=== PATIENT | female | born 1965 | race Caucasian/White ===

== ENCOUNTER 2021-09-21 15:20 | Inpatient (IN) | payer OTHER ==
[2021-09-21] MEDS ORDERED: DEXAMETHASONE SOD PHOSPHATE 10 MG/ML 1 ML VIAL IV STA (17:01)
[2021-09-21] MEDS ORDERED: ACETAMINOPHEN TAB 500 MG TAB PO STA (17:17)
--- NOTE | 2021-09-21 17:19 | ED ---
General Adult HPI - General Chief complaint: Upper Respiratory Infection Stated complaint: low o2/cough/fever Time Seen by Provider: 09/21/21 16:45 Source: patient Mode of arrival: ambulatory Limitations: no limitations - History of Present Illness Initial comments: Dictation was produced using [employer] dictation software. please excuse any grammatical, word or spelling errors. Chief Complaint: 86-year-old female presents to emergency Department for hypoxia. She was tested positive for coronavirus 5 days ago History of Present Illness: This 56-year-old female she is 5 days positive for coronavirus per she's been symptomatic for the last 7 days. She has had mild symptoms since the beginning however today she noticed that her symptoms are any worse. She started to feel mildly short of breath. She wears a [employer] Smart watch per she checked her oxygen was found to be very low measuring 60-70%. She called her primary care doctor and was told to come to the emergency department. Patient is placed on supplemental oxygen with improvement. Patient has no chest pain. She states she did get one of the vaccines back in November. She has had the second because she had a severe ALLERGIC reaction from the first injection. Patient still complains mild fevers. No abdominal pain. The ROS documented in this emergency department record has been reviewed and confirmed by me. Those systems with pertinent positive or negative responses have been documented in the HPI. All other systems are other negative and/or noncontributory. PHYSICAL EXAM: General Impression: Alert and oriented x3, not in acute distress HEENT: Normocephalic atraumatic, extra-ocular movements intact, pupils equal and reactive to light bilaterally, mucous membranes moist. Cardiovascular: Heart regular rate and rhythm Chest: Able to complete full sentences, no retractions, no tachypnea Abdomen: abdomen soft, non-tender, non-distended, no organomegaly Musculoskeletal: Pulses present and equal in all extremities, no peripheral edema Motor: no focal deficits noted Neurological: CN II-XII grossly intact, no focal motor or sensory deficits noted Skin: Intact with no visualized rashes Psych: Normal affect and mood ED course: 56-year-old female presents emergency department for hypoxia secondary to coronavirus. Vital signs upon arrival shows hypoxia measured at 83% on room air. Temperature is 100.4. Heart rate is 104. Laboratory evaluation obtained. CBC, coag panel, metabolic panel is all within acceptable limits. Patient does have elevated inflammatory markers. D-dimer 0.81. Chest x-ray shows patchy interstitial pneumonia. CTA shows bilateral pneumonia no PE. Patient be admitted for COVID-19 with hypoxic respiratory failure. Patient given Decadron placed on supplemental oxygen. She is satting well. Patient be admitted to Dr. Xiao. Infectious disease and pulmonology on consult. EKG interpretation: Ventricular rate 70, sinus tachycardia,. Interval 142, QRS 72, QTC 429. No VA prolongation, no QTC prolongation. T wave inversion in the 3 and aVF. Overall this EKG is nonspecific. - Related Data Home Medications Medication Instructions Recorded Confirmed No Known Home Medications 09/21/21 09/21/21 Allergies Allergy/AdvReac Type Severity Reaction Status Date / Time amoxicillin Allergy Rash/Hives Verified 09/21/21 17:08 cobalt Allergy Anaphylaxis Verified 09/21/21 17:08 ibuprofen [From Motrin] Allergy Rash/Hives Verified 09/21/21 17:08 Review of Systems ROS Statement: Those systems with pertinent positive or pertinent negative responses have been documented in the HPI. ROS Other: All systems not noted in ROS Statement are negative. Past Medical History Past Medical History: No Reported History History of Any Multi-Drug Resistant Organisms: None Reported Past Surgical History: No Surgical Hx Reported Past Psychological History: No Psychological Hx Reported Smoking Status: Never smoker Past Alcohol Use History: None Reported Past Drug Use History: None Reported General Exam Limitations: no limitations Course Vital Signs 09/21/21 09/21/21 09/21/21 16:39 16:54 18:22 Temperature 100.4 F H 100.5 F H Pulse Rate 104 H 103 H 102 H Respiratory 22 16 16 Rate Blood Pressure 114/64 125/75 O2 Sat by Pulse 83 L 94 L 90 L Oximetry Medical Decision Making - Lab Data Result diagrams: 09/21/21 17:15 09/21/21 17:15 Lab Results 09/21/21 09/21/21 09/21/21 Range/Units 17:15 17:15 17:15 WBC 6.4 (3.8-10.6) k/uL RBC 4.96 (3.80-5.40) m/uL Hgb 14.2 (11.4-16.0) gm/dL Hct 44.2 (34.0-46.0) % MCV 89.0 (80.0-100.0) fL MCH 28.6 (25.0-35.0) pg MCHC 32.2 (31.0-37.0) g/dL RDW 13.5 (11.5-15.5) % Plt Count 142 L (150-450) k/uL MPV 8.8 Neutrophils % 69 % Lymphocytes % 24 % Monocytes % 5 % Eosinophils % 0 % Basophils % 0 % Neutrophils # 4.4 (1.3-7.7) k/uL Lymphocytes # 1.5 (1.0-4.8) k/uL Monocytes # 0.3 (0-1.0) k/uL Eosinophils # 0.0 (0-0.7) k/uL Basophils # 0.0 (0-0.2) k/uL PT 9.8 (9.0-12.0) sec INR 0.9 (<1.2) APTT 25.1 (22.0-30.0) sec D-Dimer 0.81 H (<0.60) mg/L FEU Sodium 134 L (137-145) mmol/L Potassium 4.2 (3.5-5.1) mmol/L Chloride 96 L (98-107) mmol/L Carbon Dioxide 27 (22-30) mmol/L Anion Gap 11 mmol/L BUN 16 (7-17) mg/dL Creatinine 0.70 (0.52-1.04) mg/dL Est GFR (CKD-EPI)AfAm >90 (>60 ml/min/1.73 sqM) Est GFR (CKD-EPI)NonAf >90 (>60 ml/min/1.73 sqM) Glucose 107 H (74-99) mg/dL Plasma Lactic Acid Tong (0.7-2.0) mmol/L Calcium 8.5 (8.4-10.2) mg/dL Magnesium 2.5 H (1.6-2.3) mg/dL Total Bilirubin 0.6 (0.2-1.3) mg/dL AST 178 H (14-36) U/L ALT 53 H (4-34) U/L Alkaline Phosphatase 64 (38-126) U/L Lactate Dehydrogenase 3014 H (313-618) U/L C-Reactive Protein 16.8 H (<1.0) mg/dL Total Protein 7.0 (6.3-8.2) g/dL Albumin 3.8 (3.5-5.0) g/dL 09/21/21 Range/Units 17:15 WBC (3.8-10.6) k/uL RBC (3.80-5.40) m/uL Hgb (11.4-16.0) gm/dL Hct (34.0-46.0) % MCV (80.0-100.0) fL MCH (25.0-35.0) pg MCHC (31.0-37.0) g/dL RDW (11.5-15.5) % Plt Count (150-450) k/uL MPV Neutrophils % % Lymphocytes % % Monocytes % % Eosinophils % % Basophils % % Neutrophils # (1.3-7.7) k/uL Lymphocytes # (1.0-4.8) k/uL Monocytes # (0-1.0) k/uL Eosinophils # (0-0.7) k/uL Basophils # (0-0.2) k/uL PT (9.0-12.0) sec INR (<1.2) APTT (22.0-30.0) sec D-Dimer (<0.60) mg/L FEU Sodium (137-145) mmol/L Potassium (3.5-5.1) mmol/L Chloride (98-107) mmol/L Carbon Dioxide (22-30) mmol/L Anion Gap mmol/L BUN (7-17) mg/dL Creatinine (0.52-1.04) mg/dL Est GFR (CKD-EPI)AfAm (>60 ml/min/1.73 sqM) Est GFR (CKD-EPI)NonAf (>60 ml/min/1.73 sqM) Glucose (74-99) mg/dL Plasma Lactic Acid Tong 1.4 (0.7-2.0) mmol/L Calcium (8.4-10.2) mg/dL Magnesium (1.6-2.3) mg/dL Total Bilirubin (0.2-1.3) mg/dL AST (14-36) U/L ALT (4-34) U/L Alkaline Phosphatase (38-126) U/L Lactate Dehydrogenase (313-618) U/L C-Reactive Protein (<1.0) mg/dL Total Protein (6.3-8.2) g/dL Albumin (3.5-5.0) g/dL Critical Care Time Critical Care Time: Yes Total Critical Care Time: 33 Disposition Clinical Impression: Coronavirus infection Disposition: ADMITTED IP TO THIS [facility] Condition: Critical Referrals: Elpidio Coffey MD [Primary Care Provider] - 1-2 days
[2021-09-21 17:25] LABS: Basophils % (A) 0 %; Eosinophils % (A) 0 %; HCT 44.2 % (34.0-46.0); HGB 14.2 gm/dL (11.4-16.0); Lymphocytes # (A) 1.5 k/uL (1.0-4.8); Lymphocytes % (A) 24 %; MCH 28.6 pg (25.0-35.0); MCHC 32.2 g/dL (31.0-37.0); Mean Platelet Volume 8.8; Monocytes # (A) 0.3 k/uL (0-1.0); Monocytes % (A) 5 %; Neutrophils # (A) 4.4 k/uL (1.3-7.7); Neutrophils % (A) 69 %; Platelet Count 142 k/uL (150-450); RBC 4.96 m/uL (3.80-5.40); RDW 13.5 % (11.5-15.5); WBC 6.4 k/uL (3.8-10.6)
[2021-09-21 17:38] LABS: INR 0.9 (<1.2); Partial Thromboplastin Time 25.1 sec (22.0-30.0); Prothrombin Time 9.8 sec (9.0-12.0)
[2021-09-21 17:44] LABS: ALT 53 U/L (4-34); AST 178 U/L (14-36); African American GFR (CKD) >90 (>60 ml/min/1.73 sqM); Albumin 3.8 g/dL (3.5-5.0); Alkaline Phosphatase 64 U/L (38-126); Anion Gap 11 mmol/L; Blood Urea Nitrogen 16 mg/dL (7-17); Calcium 8.5 mg/dL (8.4-10.2); Carbon Dioxide 27 mmol/L (22-30); Chloride 96 mmol/L (98-107); Glucose 107 mg/dL (74-99); Magnesium 2.5 mg/dL (1.6-2.3); Non-African American GFR(CKD) >90 (>60 ml/min/1.73 sqM); Potassium 4.2 mmol/L (3.5-5.1); Sodium 134 mmol/L (137-145); Total Bilirubin 0.6 mg/dL (0.2-1.3)
[2021-09-21 17:55] LABS: C Reactive Protein 16.8 mg/dL (<1.0); LDH 3014 U/L (313-618)
--- NOTE | 2021-09-21 19:01 | XR ---
EXAMINATION TYPE: XR chest 1V portable DATE OF EXAM: 09/21/2021 COMPARISON: NONE HISTORY: Difficulty breathing TECHNIQUE: Gayatri view FINDINGS: There is coarse interstitial density in the mid and lower lung montilla. Heart size is normal . There is no heart failure. There are chest leads. There is no pleural effusion. IMPRESSION: There is some patchy interstitial mild pneumonia. No heart failure seen.
--- NOTE | 2021-09-21 19:16 | CT ---
EXAMINATION TYPE: CT angio chest DATE OF EXAM: 09/21/2021 COMPARISON: None HISTORY: Shortness of breath. CT DLP: 409.2 mGycm Automated exposure control for dose reduction was used. CONTRAST: Performed with IV Contrast, patient injected with 100 mL of Isovue 300. There are 3-D post processed images. There is extensive patchy interstitial and airspace infiltrates in both lungs. There is no mediastina l adenopathy. There are no hilar masses. Thoracic aorta is intact. There is no aneurysm or dissection . There is no evidence of filling defect in the pulmonary arteries. There is some degenerative spurring in the thoracic spine. There is no compression fracture. Sternum is intact. The ribs appear intact. IMPRESSION: No evidence of pulmonary embolism. Extensive bilateral pneumonia.
[2021-09-21] MEDS ORDERED: NALOXONE 0.4 MG/ML 1 ML VIAL IV PRN (19:18)
[2021-09-21] MEDS: ENOXAPARIN 40 MG/0.4 ML SYRINGE SQ SCH (19:47)
--- NOTE | 2021-09-21 20:47 | P.HPIM ---
History of Present Illness H&P Date: 09/21/21 Chief Complaint: Short of breath This is a 56-year-old patient who follows with Dr. Coffey. Normally in good health. Was on taking any medications. Patient received off for short of posterior on it this year. Few minutes up to that she had developed a rash on the chest. Blood pressure was a bit high. Some tingling in the lips. There was no lip swelling no tongue swelling no choking no shortness of breath. Given this reaction she did not take the second dose of COVID shock. Patient for about a week has been getting progressively more short of breath. Having diar zoey for last 3 days. Everything tastes salty. Having. Slight headache. Has a dry cough. Her pulse ox at room has been off and on 84%. Poor appetite. Has been getting dizzy. She talk to her family doctor on videophone. He asked her to come in to the hospital. Patient tested positive for COVID 5 days ago. Brother and rundown. She been having some fevers. Review of systems: GEN.: Decreased appetite, fever, tired EYES: None HEENT: Some headache NECK: None RESPIRATORY: As above CARDIOVASCULAR: None GASTROINTESTINAL: Diarrhea GENITOURINARY: None MUSCULOSKELETAL: None LYMPHATICS: None HEMATOLOGICAL: None PSYCHIATRY: None NEUROLOGICAL: None Past medical history: Unremarkable Social history: Does not smoke or drink alcohol. . 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 Family history: Reviewed, noncontributory to presentation Physical examination: VITAL SIGNS: 100.8, 104, 22, 140/64, 83% room air GENERAL: BMI 71.1, reclining in bed, awake, tired. EYES: Pupils equal. Conjunctiva normal. HEENT: External appearance of nose and ears normal, oral cavity grossly normal. NECK: JVD not raised; masses not palpable. HEART: First and second heart sounds are normal; no edema. LUNGS: Respiratory rate increased, decreased breath sounds bilateral coarse crackles. ABDOMEN: Soft, nontender, liver spleen not palpable, no masses palpable. PSYCH: Alert and oriented x3; mood and affect tiredl. NEUROLOGICAL: Cranial nerves grossly intact; no facial asymmetry, power and sensation grossly intact. LYMPHATICS: No lymph nodes palpable in the axilla and neck INVESTIGATIONS, reviewed in the clinical context: WBC 6.4 hemoglobin 14.2 platelets 142 d-dimer 0.81 potassium 4.2 BUN 16 creatinine 0.70 CRP 16.8 Chest x-ray film personally reviewed by me-bilateral infiltrates Assessment and plan: -Acute bilateral COVID 19 pneumonitis. Patient is receive her first dose of vaccine in November. Had ALLERGIC reaction and did not get the second short period patient's symptoms have been present for about a week. Hypoxic. Start patient on dexamethasone 6 mg. Patient's is within the window for getting Remdesivir. Pulmonary and ID been consulted. -Acute hypoxic respiratory failure from COVID 19 pneumonitis. Oxygen currently at 4 L. Incentive spirometry -Sepsis from COVID 19 pneumonitis IV fluids -Thrombocytopenia from COVID 19 Follow CBC Dexamethasone 6 mg daily. Vitamin C, vitamin D, zinc sulfate. Pulmonary and ID consulted. Patient should be a candidate for IV Remdesivir. 4 L of oxygen. Incentive spirometry. Activity as tolerated. Given the complexity and severity of patient's condition expect the patient to be in the hospital at least for 2 overnights Past Medical History Past Medical History: No Reported History History of Any Multi-Drug Resistant Organisms: None Reported Past Surgical History: No Surgical Hx Reported Past Psychological History: No Psychological Hx Reported Smoking Status: Never smoker Past Alcohol Use History: None Reported Past Drug Use History: None Reported Medications and Allergies Home Medications Medication Instructions Recorded Confirmed Type No Known Home Medications 09/21/21 09/21/21 History Allergies Allergy/AdvReac Type Severity Reaction Status Date / Time amoxicillin Allergy Rash/Hives Verified 09/21/21 17:08 cobalt Allergy Anaphylaxis Verified 09/21/21 17:08 ibuprofen [From Motrin] Allergy Rash/Hives Verified 09/21/21 17:08 Physical Exam Vitals: Vital Signs Temp Pulse Resp BP Pulse Ox 09/21/21 20:03 99 18 127/65 94 L 09/21/21 19:49 100.8 F H 09/21/21 18:22 100.5 F H 102 H 16 125/75 90 L 09/21/21 16:54 103 H 16 94 L 09/21/21 16:39 100.4 F H 104 H 22 114/64 83 L Intake and Output 09/21/21 09/21/21 09/21/21 06:59 14:59 22:59 Other: Weight 182 kg Results CBC & Chem 7: 09/21/21 17:15 09/21/21 17:15 Labs: Abnormal Lab Results - Last 24 Hours (Table) 09/21/21 09/21/21 09/21/21 Range/Units 17:15 17:15 17:15 Plt Count 142 L (150-450) k/uL D-Dimer 0.81 H (<0.60) mg/L FEU Sodium 134 L (137-145) mmol/L Chloride 96 L (98-107) mmol/L Glucose 107 H (74-99) mg/dL Magnesium 2.5 H (1.6-2.3) mg/dL AST 178 H (14-36) U/L ALT 53 H (4-34) U/L Lactate Dehydrogenase 3014 H (313-618) U/L C-Reactive Protein 16.8 H (<1.0) mg/dL
[2021-09-21] MEDS ORDERED: MAG HYDROX/AL HYDROX/SIMETH 30 ML CUP PO PRN (20:48)
[2021-09-21] MEDS ORDERED: MAGNESIUM HYDROXIDE 2,400 MG/10 ML CUP PO PRN (20:48)
[2021-09-21] MEDS ORDERED: LACTULOSE 20 GM/30 ML CUP PO PRN (20:48)
[2021-09-21] MEDS ORDERED: ONDANSETRON 4 MG/2 ML VIAL IVP PRN (20:48)
[2021-09-21] MEDS ORDERED: CALCIUM CARBONATE 500 MG CHEWABLE PO PRN (20:48)
[2021-09-21] MEDS ORDERED: ALPRAZolam 0.25 MG TAB PO PRN (20:48)
[2021-09-21] MEDS ORDERED: ACETAMINOPHEN TAB 325 MG TAB PO PRN (20:48)
[2021-09-21] MEDS: PSYLLIUM HUSK 100% 6 GM PACKET PO SCH (21:56)
[2021-09-21] MEDS: CHOLECALCIFEROL 25 MCG (1000 IU) TABLET PO SCH (21:59)
[2021-09-21] MEDS: ZINC SULFATE 220 MG CAP PO SCH (21:59)
[2021-09-21] MEDS: ASCORBIC ACID 500 MG TAB PO SCH (21:59)
[2021-09-21] MEDS: dexAMETHasone 2 MG TAB PO SCH (21:59)
[2021-09-21] MEDS: LACTATED RINGERS 1,000 ML IV SCH (22:00)
[2021-09-22] MEDS: LACTATED RINGERS 1,000 ML IV SCH ×4 (05:08→19:41)
[2021-09-22] MEDS: ASCORBIC ACID 500 MG TAB PO SCH ×2 (09:18→19:42)
[2021-09-22] MEDS: dexAMETHasone 2 MG TAB PO SCH (09:18)
[2021-09-22] MEDS: ENOXAPARIN 40 MG/0.4 ML SYRINGE SQ SCH (09:18)
[2021-09-22] MEDS: ZINC SULFATE 220 MG CAP PO SCH (09:18)
[2021-09-22] MEDS: CHOLECALCIFEROL 25 MCG (1000 IU) TABLET PO SCH (09:18)
[2021-09-22] MEDS: PSYLLIUM HUSK 100% 6 GM PACKET PO SCH (09:22)
[2021-09-22] MEDS ORDERED: REMDESIVIR 200 MG in SODIUM CHLORIDE 0.9% 250 ML IVPB ONE (12:00)
--- NOTE | 2021-09-22 13:45 | P.PN ---
Progress Note - Text Progress Note Date: 09/22/21 Chief Complaint: Short of breath This is a 56-year-old patient who follows with Dr. Coffey. Normally in good health. Was on taking any medications. Patient received off for short of posterior on it this year. Few minutes up to that she had developed a rash on the chest. Blood pressure was a bit high. Some tingling in the lips. There was no lip swelling no tongue swelling no choking no shortness of breath. Given this reaction she did not take the second dose of COVID shock. Patient for about a week has been getting progressively more short of breath. Having diarrhea for last 3 days. Everything tastes salty. Having. Slight headache. Has a dry cough. Her pulse ox at room has been off and on 84%. Poor appetite. Has been getting dizzy. She talk to her family doctor on videophone. He asked her to come in to the hospital. Patient tested positive for COVID 5 days ago. Tired and rundown. She been having some fevers. Admitted with COVID 19 pneumonitis, acute hypoxic respiratory failure. Started on dexamethasone, oxygen. IV fluids. 09/22/2021: Sitting up in a chair. Some shortness of breath. Did eat some. 91% on 3 L. Tired. Started on Remdesivir IV. Diarrhea present Review of systems: Was done for constitutional, cardiovascular, GI, pulmonary. relevant finding as above Active Medications Acetaminophen (Acetaminophen Tab 325 Mg Tab) 650 mg PO Q6HR PRN PRN Reason: Mild Pain or Fever > 100.5 Last Admin: 09/21/21 21:59 Dose: 650 mg Documented by: Al Hydroxide/Mg Hydroxide (Mag Hydrox/Al Hydrox/Simeth 30 Ml Cup) 15 ml PO Q6HR PRN PRN Reason: Indigestion Alprazolam (Alprazolam 0.25 Mg Tab) 0.25 mg PO Q6HR PRN PRN Reason: Anxiety Ascorbic Acid (Ascorbic Acid 500 Mg Tab) 500 mg PO BID [facility] Last Admin: 09/22/21 09:18 Dose: 500 mg Documented by: Calcium Carbonate/Glycine (Calcium Carbonate 500 Mg Chewable) 1,000 mg PO Q4HR PRN PRN Reason: Dyspepsia Cholecalciferol (Cholecalciferol 25 Mcg (1000 Iu) Tablet) 100 mcg PO DAILY [facility] Last Admin: 09/22/21 09:18 Dose: 100 mcg Documented by: Dexamethasone (Dexamethasone 2 Mg Tab) 6 mg PO DAILY [facility] Last Admin: 09/22/21 09:18 Dose: 6 mg Documented by: Enoxaparin Sodium (Enoxaparin 40 Mg/0.4 Ml Syringe) 40 mg SQ DAILY [facility] Last Admin: 09/22/21 09:18 Dose: 40 mg Documented by: Lactated Ringer's (Lactated Ringers) 1,000 mls @ 125 mls/hr IV .Q8H [facility] Last Admin: 09/22/21 05:08 Dose: Not Given Documented by: Remdesivir 100 mg/ Sodium (Chloride) 250 mls @ 250 mls/hr IVPB DAILY@1200 [facility] Stop: 09/26/21 12:59 Lactulose (Lactulose 20 Gm/30 Ml Cup) 20 gm PO DAILY PRN PRN Reason: Constipation Magnesium Hydroxide (Magnesium Hydroxide 2,400 Mg/10 Ml Cup) 2,400 mg PO DAILY PRN PRN Reason: Constipation Melatonin (Melatonin 3 Mg Tablet) 3 mg PO HS PRN PRN Reason: Insomnia Naloxone HCl (Naloxone 0.4 Mg/Ml 1 Ml Vial) 0.2 mg IV Q2M PRN PRN Reason: Opioid Reversal Ondansetron HCl (Ondansetron 4 Mg/2 Ml Vial) 4 mg IVP Q8HR PRN PRN Reason: Nausea And Vomiting Psyllium Hydrophilic Mucilloid (Psyllium Husk 100% 6 Gm Packet) 6 gm PO DAILY [facility] Last Admin: 09/22/21 09:22 Dose: Not Given Documented by: Zinc Sulfate (Zinc Sulfate 220 Mg Cap) 220 mg PO DAILY [facility] Last Admin: 09/22/21 09:18 Dose: 220 mg Documented by: Past medical history: Unremarkable Social history: Does not smoke or drink alcohol. . 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 Family history: Reviewed, noncontributory to presentation Physical examination: VITAL SIGNS: 98.1, 83%, 20, 131 and 82, 91% on 3 L GENERAL: BMI 71.1, reclining in bed, awake, tired. EYES: Pupils equal. Conjunctiva normal. HEENT: External appearance of nose and ears normal, oral cavity grossly normal. NECK: JVD not raised; masses not palpable. HEART: First and second heart sounds are normal; no edema. LUNGS: Respiratory rate increased, decreased breath sounds bilateral coarse crackles. ABDOMEN: Soft, nontender, liver spleen not palpable, no masses palpable. PSYCH: Alert and oriented x3; mood and affect tiredl. NEUROLOGICAL: Cranial nerves grossly intact; no facial asymmetry, power and sensation grossly intact. LYMPHATICS: No lymph nodes palpable in the axilla and neck INVESTIGATIONS, reviewed in the clinical context: WBC 6.4 hemoglobin 14.2 platelets 142 d-dimer 0.81 potassium 4.2 BUN 16 creatinine 0.70 CRP 16.8 Chest x-ray film personally reviewed by me-bilateral infiltrates Assessment and plan: -Acute bilateral COVID 19 pneumonitis. Received her first dose of vaccine in November. Had ALLERGIC reaction and did not get the second short period patient's symptoms have been present for about a week. Dexamethasone. IV Remdesivir-day 1. -Acute hypoxic respiratory failure from COVID 19 pneumonitis.: Slow to respond Oxygen currently at 3 L. Incentive spirometry -Sepsis from COVID 19 pneumonitis IV fluids -Thrombocytopenia from COVID 19 Follow CBC Dexamethasone 6 mg daily. IV Remdesivir. oxygen. Incentive spirometry. Follow with pulmonary in ID. Discussed with patient.
--- NOTE | 2021-09-22 14:33 | P.CNPUL ---
History of Present Illness Consult date: 09/22/21 Requesting physician: Kris Xiao Reason for consult: dyspnea, hypoxemia, abnormal CXR/CT Chief complaint: Cough, fever, hypoxia History of present illness: This is a 56-year-old female patient of Dr. Coffey with no significant medical history, who presented to the emergency department on 09/21/2021 for evaluation of worsening dyspnea, patient wears a apple Smart watch and when she checked her oxygen it was noted to be very low measuring 60-70%. She has been having a cough and a fever for about 1 week. She called her primary care doctor and was told to come into the emergency department. Patient denied any chest pain, patient was tested positive for COVID 19 5 days ago. No nausea or vomiting, no abdominal pain. Patient did have some diarrhea related to COVID-19 infection. Patient had her first COVID-19 injection back in November 2020 however she developed a reaction to it with development of a rash, lips tingling and hypertension and she did not receive her second COVID-19 injection. Chest x-ray in emergency department showed some patchy interstitial mild pneumonia. Admis francis showed white blood cell count of 6.4, hemoglobin 14.2, platelet count was 442, INR was 0.9, d-dimer 0.81, sodium was 134, potassium is 4.2, chloride was 96, CO2 is 27, BUN was 16, creatinine was 0.7, lactic acid was 1.4, ferritin level was 2674, AST was 178, ALT was 53, LDH was 3014, CRP was 16.8, pro calcitonin level was 0.17. CTA chest was obtained showing no evidence of pulmonary embolism, and extensive bilateral pneumonia. She was started on Decadron, prophylactic dose Lovenox 40 mg daily, and we were asked to see the patient in consultation COVID-19 pneumonia Review of Systems All systems: negative Constitutional: Denies chills, Denies fever Eyes: denies blurred vision, denies pain Ears, nose, mouth and throat: Denies headache, Denies sore throat Cardiovascular: Denies chest pain, Denies shortness of breath Respiratory: Reports dyspnea, Denies cough Gastrointestinal: Denies abdominal pain, Denies diarrhea, Denies nausea, Denies vomiting Genitourinary: Denies dysuria, Denies hematuria Musculoskeletal: Denies myalgias Integumentary: Denies pruritus, Denies rash Neurological: Denies numbness, Denies weakness Psychiatric: Denies anxiety, Denies depression Endocrine: Denies fatigue, Denies weight change Past Medical History Past Medical History: No Reported History History of Any Multi-Drug Resistant Organisms: None Reported Past Surgical History: No Surgical Hx Reported Past Anesthesia/Blood Transfusion Reactions: No Reported Reaction Past Psychological History: No Psychological Hx Reported Smoking Status: Never smoker Past Alcohol Use History: None Reported Past Drug Use History: None Reported - Past Family History Father Family Medical History: Cancer Additional Family Medical History / Comment(s): lung cancer Mother Family Medical History: Congestive Heart Failure (CHF) Medications and Allergies Home Medications Medication Instructions Recorded Confirmed Type No Known Home Medications 09/21/21 09/21/21 History Allergies Allergy/AdvReac Type Severity Reaction Status Date / Time amoxicillin Allergy Rash/Hives Verified 09/21/21 17:08 cobalt Allergy Anaphylaxis Verified 09/21/21 17:08 ibuprofen [From Motrin] Allergy Rash/Hives Verified 09/21/21 17:08 Physical Exam Vitals: Vital Signs Temp Pulse Pulse Resp BP BP Pulse Ox 09/22/21 10:01 98.1 F 83 20 131/82 91 L 09/22/21 08:10 17 09/22/21 05:44 97.4 F L 79 17 141/81 94 L 09/22/21 02:41 97.8 F 76 17 118/74 95 09/22/21 00:00 87 18 09/21/21 23:45 97.2 F L 87 18 133/85 92 L 09/21/21 22:05 98.6 F 09/21/21 20:03 99 18 127/65 94 L 09/21/21 19:49 100.8 F H 09/21/21 18:22 100.5 F H 102 H 16 125/75 90 L 09/21/21 16:54 103 H 16 94 L 09/21/21 16:39 100.4 F H 104 H 22 114/64 83 L Intake and Output 09/21/21 09/22/21 09/22/21 22:59 06:59 14:59 Other: # Voids 1 Weight 182 kg 82.5 kg GENERAL EXAM: Alert, very pleasant, 56-year-old white female, currently on 3 L of oxygen and pulse ox of 91% comfortable in no apparent distress. HEAD: Normocephalic/atraumatic. EYES: Normal reaction of pupils, equal size. Conjunctiva pink, sclera white. NOSE: Clear with pink turbinates. THROAT: No erythema or exudates. NECK: No masses, no JVD, no thyroid enlargement, no adenopathy. CHEST: No chest wall deformity. Symmetrical expansion. LUNGS: Equal air entry with mild crackles at the bases CVS: Regular rate and rhythm, normal S1 and S2, no gallops, no murmurs, no rubs ABDOMEN: Soft, nontender. No hepatosplenomegaly, normal bowel sounds, no guarding or rigidity. EXTREMITIES: No clubbing, no edema, no cyanosis, 2+ pulses and upper and lower extremities. MUSCULOSKELETAL: Muscle strength and tone normal. SPINE: No scoliosis or deformity SKIN: No rashes CENTRAL NERVOUS SYSTEM: Alert and oriented -3. No focal deficits, tone is nor mal in all 4 extremities. PSYCHIATRIC: Alert and oriented -3. Appropriate affect. Intact judgment and insight. Results - Laboratory Findings CBC and BMP: 09/21/21 17:15 09/21/21 17:15 PT/INR, D-dimer PT 9.8 sec (9.0-12.0) 09/21/21 17:15 INR 0.9 (<1.2) 09/21/21 17:15 D-Dimer 0.52 mg/L FEU (<0.60) 09/22/21 05:49 Abnormal lab findings: Abnormal Labs 09/21/21 09/21/21 09/21/21 17:15 17:15 17:15 Plt Count 142 L D-Dimer 0.81 H Sodium 134 L Chloride 96 L Glucose 107 H Magnesium 2.5 H Ferritin 2674.0 H AST 178 H ALT 53 H Lactate Dehydrogenase 3014 H C-Reactive Protein 16.8 H Procalcitonin 09/21/21 09/22/21 17:15 05:49 Plt Count D-Dimer Sodium Chloride Glucose Magnesium Ferritin AST ALT Lactate Dehydrogenase C-Reactive Protein 14.1 H Procalcitonin 0.17 H - Diagnostic Findings Chest x-ray: report reviewed, image reviewed CT scan - chest: report reviewed, image reviewed Assessment and Plan Plan: Assessment: #1. Acute hypoxic respiratory failure related to acute COVID-19 pneumonia, with onset of symptoms within 1 week of presentation to the emergency department. She is a good candidate for Remdesivir, she will be started on it on 09/22/2021 #2. Incomplete COVID-19 vaccination, patient received 1 dose of COVID-19 vaccine in November 2020, developed a reaction with skin rash, hypertension, and tingling lips, and did not complete her second injection #3. Elevated inflammatory markers related to acute viral pneumonia #4. Elevated d-dimer without evidence of pulmonary embolism on CT angiogram Plan: Continue Decadron Continue prophylactic Lovenox Continue multivitamins Continue IV hydration We'll continue to follow patient's clinical course and make further recommendations I performed a history & physical examination of the patient and discussed their management with my nurse practitioner, Babs Mckee. I reviewed the nurse practitioner's note and agree with the documented findings and plan of care. Lung sounds are positive for diminished breath sounds throughout the lung f ields. The findings and the impression was discussed with the patient. I attest to the documentation by the nurse practitioner. Time with Patient: Greater than 30
[2021-09-22] MEDS: MELATONIN 3 MG TABLET PO PRN (22:17)
--- NOTE | 2021-09-22 23:11 | P.CONS ---
History of Present Illness - Reason for Consult Consult date: 09/22/21 Covid 19 pneumonia Requesting physician: Kris Xiao - Chief Complaint shortness of breath and low pulse ox x few days - History of Present Illness History of present illness : Patient is 56-year-old female who did received 1 dose of COVID-19 back in November 2020 patient mention she did have allergic reaction and could not receive the second dose patient presented to the [facility] ER yesterday afternoon for evaluation of increasing shortness of breath and hypoxemia in this patient symptom has going on for about a week before presentation to the hospital patient did have a low pulse ox on her smart watch 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% patient did call her primary care physician who advised the patient to go to the hospital patient has been complaining of fever and chills she is has increasing shortness of the minimal exertion the patient also have a cough which is moderate intensity with occasional sputum production no hemoptysis some nausea decreased oral treatment no vomiting no abdominal pain did have some diarrhea on presentation to the hospital but did have a fever of 100.4 F patient was hypoxic with O2 sats of 83% on room air patient did have a normal white count no lymphopenia D-dimer was mildly elevated creatinine was normal ferritin was elevated liver enzymes mildly elevated glucose was 0.17 patient did have a chest x-ray patchy interstitial have mild pneumonia CT angiogram of the chest no evidence of PE extensive bilateral pneumonia patient was admitted to the hospital infectious disease was consulted for further management Review of system: CONSTITUTIONAL: Positive for weakness along with the fever. EYES: No complaint. ENT: No complaint. RESPIRATORY: As per history of present illness. CARDIOVASCULAR: No complaint. GENITOURINARY: No complaint. GASTROINTESTINAL: As per history of present illness. MUSCULOSKELETAL: No complaint. INTEGUMENTARY: No complaint. PSYCHOLOGIC: No complaint. ENDOCRINE: No complaint. NEUROLOGIC: No complaint. Past medical history : Reviewed, documented below Past surgical history : Reviewed, documented below Social history: Reviewed, documented below Medications: Reviewed, as documented below EXAMINATION: Vital sigans= Reviewed and documented below GENERAL DESCRIPTION: Middle-aged female up in the chair, no distress. No tachypnea or accessory muscle of respiration use. HEENT: Shows Pallor , no scleral icterus. Oral mucous membrane is dry. NECK: Trachea central, no thyromegaly. LUNGS: Unlabored breathing. Coarse breath sounds at bases. No wheeze or crackle. HEART: S1, S2, regular rate and rhythm. ABDOMEN: Soft, no tenderness , guarding or rigidity EXTREMITIES: No edema of feet. SKIN: No rash, no masses palpable. NEUROLOGICAL: The patient is awake, alert, oriented x3, mood and affect normal. LABS AND RADIOLOGY: Reviewed results see below Assessment : Patient presented to hospital with increasing shortness of breath hypoxemia in this patient did have a fever with evidence of extensive infiltration pneumonia on the basis of COVID-19 and the patient symptom has been going on for about 7 days and will qualify for remdesivir per [facility] policy no clinical evidence of secondary bacterial pneumonia Plan: 1-remdesivir 5-day course as per discussion with the pulmonary 2-dexamethasone Lovenox zinc and ascorbic acid 3-droplet isolation and respiratory support We will follow on clinical condition and cultures to further adjust medication if needed Thank you for this consultation we will follow the patient along with you Past Medical History Past Medical History: No Reported History History of Any Multi-Drug Resistant Organisms: None Reported Past Surgical History: No Surgical Hx Reported Past Anesthesia/Blood Transfusion Reactions: No Reported Reaction Past Psychological History: No Psychological Hx Reported Smoking Status: Never smoker Past Alcohol Use History: None Reported Past Drug Use History: None Reported - Past Family History Father Family Medical History: Cancer Additional Family Medical History / Comment(s): lung cancer Mother Family Medical History: Congestive Heart Failure (CHF) Medications and Allergies Home Medications Medication Instructions Recorded Confirmed Type No Known Home Medications 09/21/21 09/21/21 History Allergies Allergy/AdvReac Type Severity Reaction Status Date / Time amoxicillin Allergy Rash/Hives Verified 09/21/21 17:08 cobalt Allergy Anaphylaxis Verified 09/21/21 17:08 ibuprofen [From Motrin] Allergy Rash/Hives Verified 09/21/21 17:08 Physical Exam Vitals: Vital Signs Temp Pulse Pulse Resp BP BP Pulse Ox 09/22/21 16:14 18 92 L 09/22/21 14:00 98.4 F 91 20 120/78 91 L 09/22/21 10:01 98.1 F 83 20 131/82 91 L 09/22/21 08:10 17 09/22/21 05:44 97.4 F L 79 17 141/81 94 L 09/22/21 02:41 97.8 F 76 17 118/74 95 09/22/21 00:00 87 18 09/21/21 23:45 97.2 F L 87 18 133/85 92 L 09/21/21 22:05 98.6 F 09/21/21 20:03 99 18 127/65 94 L 09/21/21 19:49 100.8 F H 09/21/21 18:22 100.5 F H 102 H 16 125/75 90 L Intake and Output 09/22/21 09/22/21 09/22/21 06:59 14:59 22:59 Intake Total 1650 Balance 1650 Intake: Intake, IV Titration 1650 Amount Lactated Ringers 1,000 ml 1250 @ 125 mls/hr IV .Q8H [facility] Rx#:[id number] Lactated Ringers 1,000 ml 150 @ 75 mls/hr IV .[id number] [facility] Rx#:[id number] Remdesivir 200 mg In 250 Sodium Chloride 0.9% 250 ml @ 250 mls/hr IVPB ONCE ONE Rx#:[id number] Other: # Voids 1 4 Weight 82.5 kg Results CBC & Chem 7: 09/21/21 17:15 09/21/21 17:15 Labs: Abnormal Lab Results - Last 24 Hours (Table) 09/21/21 09/21/21 09/21/21 Range/Units 17:15 17:15 17:15 Plt Count 142 L (150-450) k/uL D-Dimer 0.81 H (<0.60) mg/L FEU Sodium 134 L (137-145) mmol/L Chloride 96 L (98-107) mmol/L Glucose 107 H (74-99) mg/dL Magnesium 2.5 H (1.6-2.3) mg/dL Ferritin 2674.0 H (10.0-291.0) ng/mL AST 178 H (14-36) U/L ALT 53 H (4-34) U/L Lactate Dehydrogenase 3014 H (313-618) U/L C-Reactive Protein 16.8 H (<1.0) mg/dL Procalcitonin (0.02-0.09) ng/mL 09/21/21 09/22/21 Range/Units 17:15 05:49 Plt Count (150-450) k/uL D-Dimer (<0.60) mg/L FEU Sodium (137-145) mmol/L Chloride (98-107) mmol/L Glucose (74-99) mg/dL Magnesium (1.6-2.3) mg/dL Ferritin (10.0-291.0) ng/mL AST (14-36) U/L ALT (4-34) U/L Lactate Dehydrogenase (313-618) U/L C-Reactive Protein 14.1 H (<1.0) mg/dL Procalcitonin 0.17 H (0.02-0.09) ng/mL
[2021-09-23 07:24] LABS: Basophils % (A) 0 %; Eosinophils % (A) 0 %; HGB 13.1 gm/dL (11.4-16.0); Lymphocytes # (A) 1.7 k/uL (1.0-4.8); Lymphocytes % (A) 15 %; MCH 29.6 pg (25.0-35.0); MCHC 33.5 g/dL (31.0-37.0); MCV 88.2 fL (80.0-100.0); Mean Platelet Volume 8.9; Monocytes # (A) 0.6 k/uL (0-1.0); Monocytes % (A) 6 %; Neutrophils # (A) 8.8 k/uL (1.3-7.7); Neutrophils % (A) 78 %; Platelet Count 210 k/uL (150-450); RBC 4.43 m/uL (3.80-5.40); RDW 13.7 % (11.5-15.5); WBC 11.3 k/uL (3.8-10.6)
[2021-09-23] MEDS: ENOXAPARIN 40 MG/0.4 ML SYRINGE SQ SCH (09:10)
[2021-09-23] MEDS: CHOLECALCIFEROL 25 MCG (1000 IU) TABLET PO SCH (09:10)
[2021-09-23] MEDS: dexAMETHasone 2 MG TAB PO SCH (09:11)
[2021-09-23] MEDS: ZINC SULFATE 220 MG CAP PO SCH (09:11)
[2021-09-23] MEDS: ASCORBIC ACID 500 MG TAB PO SCH ×2 (09:11→20:37)
[2021-09-23] MEDS: PSYLLIUM HUSK 100% 6 GM PACKET PO SCH (09:14)
--- NOTE | 2021-09-23 12:11 | P.PN ---
Subjective Progress Note Date: 09/23/21 Principal diagnosis: COVID-19 pneumonia This is a 56-year-old female patient of Dr. Coffey with no significant medical history, who presented to the emergency department on 09/21/2021 for evaluation of worsening dyspnea, patient wears a apple Smart watch and when she checked her oxygen it was noted to be very low measuring 60-70%. She has been having a cough and a fever for about 1 week. She called her primary care doctor and was told to come into the emergency department. Patient denied any chest pain, patient was tested positive for COVID 19 5 days ago. No nausea or vomiting, no abdominal pain. Patient did have some diarrhea related to COVID-19 infection. Patient had her first COVID-19 injection back in November 2020 however she developed a reaction to it with development of a rash, lips tingling and hypertension and she did not receive her second COVID-19 injection. Chest x-ray in emergency department showed some patchy interstitial mild pneumonia. Admissi on showed white blood cell count of 6.4, hemoglobin 14.2, platelet count was 442, INR was 0.9, d-dimer 0.81, sodium was 134, potassium is 4.2, chloride was 96, CO2 is 27, BUN was 16, creatinine was 0.7, lactic acid was 1.4, ferritin level was 2674, AST was 178, ALT was 53, LDH was 3014, CRP was 16.8, pro calcitonin level was 0.17. CTA chest was obtained showing no evidence of pulmonary embolism, and extensive bilateral pneumonia. She was started on Decadron, prophylactic dose Lovenox 40 mg daily, and we were asked to see the patient in consultation COVID-19 pneumonia The patient is seen today 09/23/2021 in follow-up on the regular medical floor. She is currently sitting up at the bedside. Awake and alert in no acute distress. Doing about the same today as compared to yesterday. Routine O2 saturations at 90% on 6 L high flow nasal cannula. Afebrile. Hemodynamically stable. White count 11.3. Hemoglobin 13.1. D-dimer 0.52. C-reactive protein 5.0. Day #2 of Remdesivir. She is continued on Decadron 6 mg daily. Lovenox 40 mg daily. Vitamin supplements. Objective - Vital Signs Vital signs: Vital Signs Temp 97.8 F 09/23/21 09:46 Pulse 83 09/23/21 09:46 Resp 18 09/23/21 09:46 BP 131/81 09/23/21 09:46 Pulse Ox 90 L 09/23/21 09:46 Intake & Output 09/22/21 09/23/21 09/23/21 18:59 06:59 18:59 Intake Total 1650 Balance 1650 Intake: Intake, IV Titration 1650 Amount Lactated Ringers 1,000 ml 1250 @ 125 mls/hr IV .Q8H [facility] Rx#:[id number] Lactated Ringers 1,000 ml 150 @ 75 mls/hr IV .[id number] [facility] Rx#:[id number] Remdesivir 200 mg In 250 Sodium Chloride 0.9% 250 ml @ 250 mls/hr IVPB ONCE ONE Rx#:[id number] Other: # Voids 4 2 - Exam GENERAL EXAM: Alert, pleasant 56-year-old female patient, on 6 L high flow nasal cannula, comfortable in no apparent distress. HEAD: Normocephalic. EYES: Normal reaction of pupils, equal size. NOSE: Clear with pink turbinates. THROAT: No erythema or exudates. NECK: No masses, no JVD. CHEST: No chest wall deformity. LUNGS: Equal air entry with crackles in bilateral bases. CVS: S1 and S2 normal with no audible murmur, regular rhythm. ABDOMEN: No hepatosplenomegaly, normal bowel sounds, no guarding or rigidity. SPINE: No scoliosis or deformity SKIN: No rashes CENTRAL NERVOUS SYSTEM: No focal deficits, tone is normal in all 4 extremities. EXTREMITIES: There is no peripheral edema. No clubbing, no cyanosis. Peripheral pulses are intact. - Labs CBC & Chem 7: 09/23/21 06:36 09/21/21 17:15 Labs: Abnormal Lab Results - Last 24 Hours (Table) 09/22/21 09/23/21 09/23/21 Range/Units 17:30 06:36 06:36 WBC 11.3 H (3.8-10.6) k/uL Neutrophils # 8.8 H (1.3-7.7) k/uL C-Reactive Protein 5.0 H (<1.0) mg/dL Coronavirus (PCR) Detected A (Not Detectd) Microbiology - Last 24 Hours (Table) 09/21/21 17:34 Blood Culture - Preliminary Blood No Growth after 24 hours 09/21/21 17:15 Blood Culture - Preliminary Blood No Growth after 24 hours Assessment and Plan Assessment: 1 Acute hypoxic respiratory failure related to acute COVID-19 pneumonia, with onset of symptoms within 1 week of presentation to the emergency department. Remdesivir started on 09/22/2021 2 Incomplete COVID-19 vaccination, patient received 1 dose of COVID-19 vaccine in November 2020, developed a reaction with skin rash, hypertension, and tingling lips, and did not complete her second injection 3 Elevated inflammatory markers related to acute viral pneumonia 4 Elevated d-dimer without evidence of pulmonary embolism on CT angiogram Plan: The patient was seen and evaluated by Dr. Khanna Currently stable and on 6 L nasal cannula Continue the current treatment plan Day #2 Remdesivir Continue Lovenox, Decadron, vitamin supplements Titrate the FiO2 as tolerated Chest x-ray and labs in a.m. We will continue to follow I, the cosigning physician, performed a history & physical examination of the patient. Lungs sounds coarse crackles in the bilateral bases. Maintaining good O2 saturations in the 90s on 6 liters high flow nasal cannula. I discussed the assessment and plan of care with my nurse practitioner, Pat Wong. I attest to the above note as dictated by her.
[2021-09-23] MEDS: REMDESIVIR 100 MG in SODIUM CHLORIDE 0.9% 250 ML IVPB SCH (12:23)
[2021-09-23] MEDS: LACTATED RINGERS 1,000 ML IV SCH (16:23)
--- NOTE | 2021-09-23 17:05 | PN ---
PROGRESS NOTE DATE OF SERVICE: 09/23/2021 REASON FOR FOLLOWUP: Acute COVID-19 pneumonia. INTERVAL HISTORY: The patient is afebrile. The patient is currently breathing comfortably compared to yesterday. Denies having any chest pain. Occasional cough. No vomiting. No abdominal pain and no diarrhea. PHYSICAL EXAMINATION: Blood pressure 132/79, pulse of 91, temperature 98.4. She is 90% on 6 L nasal cannula. General description is a middle-aged female up in the bed in no distress. RESPIRATORY SYSTEM: Unlabored breathing. Decreased intensity of breath sounds. No wheeze. HEART: S1, S2. Regular rate and rhythm. ABDOMEN: Soft. No tenderness. EXTREMITIES: No edema of the feet. LABS: Hemoglobin is 13.8, white count 11.3, temperature 97.5. DIAGNOSTIC IMPRESSION AND PLAN: Patient with acute COVID-19 pneumonia in this patient who seems to have shown clinical response to the current treatment protocol of remdesivir, dexamethasone, Lovenox, zinc and ascorbic acid; to continue along with respiratory support, and monitor clinical course closely. MMODL / IJN: [id number] /
[2021-09-23] MEDS ORDERED: FUROSEMIDE 10 MG/ML 2 ML VIAL IV STA (18:09)
--- NOTE | 2021-09-23 18:10 | P.PN ---
Progress Note - Text Progress Note Date: 09/23/21 Chief Complaint: Short of breath This is a 56-year-old patient who follows with Dr. Coffey. Normally in good health. Was on taking any medications. Patient received off for short of posterior on it this year. Few minutes up to that she had developed a rash on the chest. Blood pressure was a bit high. Some tingling in the lips. There was no lip swelling no tongue swelling no choking no shortness of breath. Given this reaction she did not take the second dose of COVID shock. Patient for about a week has been getting progressively more short of breath. Having diarrhea for last 3 days. Everything tastes salty. Having. Slight headache. Has a dry cough. Her pulse ox at room has been off and on 84%. Poor appetite. Has been getting dizzy. She talk to her family doctor on videophone. He asked her to come in to the hospital. Patient tested positive for COVID 5 days ago. Tired and rundown. She been having some fevers. Admitted with COVID 19 pneumonitis, acute hypoxic respiratory failure. Started on dexamethasone, oxygen. IV fluids. 09/22/2021: Sitting up in a chair. Some shortness of breath. Did eat some. 91% on 3 L. Tired. Started on Remdesivir IV. Diarrhea present 09/23/2021: Up in a chair. Short of breath. FiO2 increased to 6 L. Tired. Diarrhea better. Eating about 50%. Review of systems: Was done for constitutional, cardiovascular, GI, pulmonary. relevant finding as above Active Medications Acetaminophen (Acetaminophen Tab 325 Mg Tab) 650 mg PO Q6HR PRN PRN Reason: Mild Pain or Fever > 100.5 Last Admin: 09/21/21 21:59 Dose: 650 mg Documented by: Al Hydroxide/Mg Hydroxide (Mag Hydrox/Al Hydrox/Simeth 30 Ml Cup) 15 ml PO Q6HR PRN PRN Reason: Indigestion Alprazolam (Alprazolam 0.25 Mg Tab) 0.25 mg PO Q6HR PRN PRN Reason: Anxiety Ascorbic Acid (Ascorbic Acid 500 Mg Tab) 500 mg PO BID CAIO Last Admin: 09/23/21 09:11 Dose: 500 mg Documented by: Calcium Carbonate/Glycine (Calcium Carbonate 500 Mg Chewable) 1,000 mg PO Q4HR PRN PRN Reason: Dyspepsia Cholecalciferol (Cholecalciferol 25 Mcg (1000 Iu) Tablet) 100 mcg PO DAILY [facility] Last Admin: 09/23/21 09:10 Dose: 100 mcg Documented by: Dexamethasone (Dexamethasone 2 Mg Tab) 6 mg PO DAILY [facility] Last Admin: 09/23/21 09:11 Dose: 6 mg Documented by: Enoxaparin Sodium (Enoxaparin 40 Mg/0.4 Ml Syringe) 40 mg SQ DAILY [facility] Last Admin: 09/23/21 09:10 Dose: 40 mg Documented by: Remdesivir 100 mg/ Sodium (Chloride) 250 mls @ 250 mls/hr IVPB DAILY@1200 [facility] Stop: 09/26/21 12:59 Last Admin: 09/23/21 12:23 Dose: 250 mls/hr Documented by: Lactated Ringer's (Lactated Ringers) 1,000 mls @ 75 mls/hr IV .[id number] [facility] Last Admin: 09/23/21 16:23 Dose: Not Given Documented by: Lactulose (Lactulose 20 Gm/30 Ml Cup) 20 gm PO DAILY PRN PRN Reason: Constipation Magnesium Hydroxide (Magnesium Hydroxide 2,400 Mg/10 Ml Cup) 2,400 mg PO DAILY PRN PRN Reason: Constipation Melatonin (Melatonin 3 Mg Tablet) 3 mg PO HS PRN PRN Reason: Insomnia Last Admin: 09/22/21 22:17 Dose: 3 mg Documented by: Naloxone HCl (Naloxone 0.4 Mg/Ml 1 Ml Vial) 0.2 mg IV Q2M PRN PRN Reason: Opioid Reversal Ondansetron HCl (Ondansetron 4 Mg/2 Ml Vial) 4 mg IVP Q8HR PRN PRN Reason: Nausea And Vomiting Psyllium Hydrophilic Mucilloid (Psyllium Husk 100% 6 Gm Packet) 6 gm PO DAILY [facility] Last Admin: 09/23/21 09:14 Dose: Not Given Documented by: Zinc Sulfate (Zinc Sulfate 220 Mg Cap) 220 mg PO DAILY [facility] Last Admin: 09/23/21 09:11 Dose: 220 mg Documented by: Past medical history: Unremarkable Social history: Does not smoke or drink alcohol. . 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 Family history: Reviewed, noncontributory to presentation Physical examination: VITAL SIGNS: 98.4, 91, 18, 132/79, 90% on 6 L GENERAL: Sitting up in a chair, tired, short of breath LUNGS: Respiratory rate increased, . PSYCH: Alert and oriented x3; mood and affect tiredl. NEUROLOGICAL: Cranial nerves grossly intact; no facial asymmetry, Rest of the exam per pulmonary, nursing INVESTIGATIONS, reviewed in the clinical context: September 23: White count 11.3 hemoglobin 13.1 and platelets 210 d-dimer 0.5 to CRP 5.0 WBC 6.4 hemoglobin 14.2 platelets 142 d-dimer 0.81 potassium 4.2 BUN 16 creatinine 0.70 CRP 16.8 Chest x-ray film personally reviewed by me-bilateral infiltrates Assessment and plan: -Acute bilateral COVID 19 pneumonitis. Received her first dose of vaccine in November. Had ALLERGIC reaction and did not get the second short period patient's symptoms have been present for about a week: Worsening. Dexamethasone. IV Remdesivir-day 2. -Acute hypoxic respiratory failure from COVID 19 pneumonitis.: Worsening Oxygen currently at6 L. Incentive spirometry -Sepsis from COVID 19 pneumonitis IV fluids -Thrombocytopenia from COVID 19: Better Follow CBC -Acute medical debility from COVID 19. Dexamethasone 6 mg daily. IV Remdesivir. 6 L oxygen. Incentive spirometry. Discussed with the patient.
[2021-09-23] MEDS: MELATONIN 3 MG TABLET PO PRN (20:41)
--- NOTE | 2021-09-24 08:06 | XR ---
EXAMINATION TYPE: XR chest 1V portable DATE OF EXAM: 09/24/2021 COMPARISON: Chest x-ray and chest CT 09/21/2021 HISTORY: Covid pneumonia TECHNIQUE: Single frontal view of the chest is obtained. FINDINGS: Bilateral groundglass opacities present within the lungs. No evident pneumothorax or pleur al effusion. Right hemidiaphragm is elevated. Cardiac mediastinal silhouette is not significantly felicitas nged. There are overlying leads. IMPRESSION: Findings consistent with patient's history of Covid pneumonia.
[2021-09-24] MEDS: ENOXAPARIN 40 MG/0.4 ML SYRINGE SQ SCH (08:07)
[2021-09-24] MEDS: ZINC SULFATE 220 MG CAP PO SCH (08:07)
[2021-09-24] MEDS: ASCORBIC ACID 500 MG TAB PO SCH ×2 (08:07→20:21)
[2021-09-24] MEDS: PSYLLIUM HUSK 100% 6 GM PACKET PO SCH (08:08)
[2021-09-24] MEDS: dexAMETHasone 2 MG TAB PO SCH (08:08)
[2021-09-24] MEDS: CHOLECALCIFEROL 25 MCG (1000 IU) TABLET PO SCH (08:08)
[2021-09-24] MEDS: REMDESIVIR 100 MG in SODIUM CHLORIDE 0.9% 250 ML IVPB SCH (11:55)
[2021-09-24 12:35] LABS: C Reactive Protein 3.2 mg/dL (<1.0)
--- NOTE | 2021-09-24 14:50 | P.PN ---
Subjective Progress Note Date: 09/24/21 Principal diagnosis: COVID-19 pneumonia This is a 56-year-old female patient of Dr. Coffey with no significant medical history, who presented to the emergency department on 09/21/2021 for evaluation of worsening dyspnea, patient wears a apple Smart watch and when she checked her oxygen it was noted to be very low measuring 60-70%. She has been having a cough and a fever for about 1 week. She called her primary care doctor and was told to come into the emergency department. Patient denied any chest pain, patient was tested positive for COVID 19 5 days ago. No nausea or vomiting, no abdominal pain. Patient did have some diarrhea related to COVID-19 infection. Patient had her first COVID-19 injection back in November 2020 however she developed a reaction to it with development of a rash, lips tingling and hypertension and she did not receive her second COVID-19 injection. Chest x-ray in emergency department showed some patchy interstitial mild pneumonia. Admissi on showed white blood cell count of 6.4, hemoglobin 14.2, platelet count was 442, INR was 0.9, d-dimer 0.81, sodium was 134, potassium is 4.2, chloride was 96, CO2 is 27, BUN was 16, creatinine was 0.7, lactic acid was 1.4, ferritin level was 2674, AST was 178, ALT was 53, LDH was 3014, CRP was 16.8, pro calcitonin level was 0.17. CTA chest was obtained showing no evidence of pulmonary embolism, and extensive bilateral pneumonia. She was started on Decadron, prophylactic dose Lovenox 40 mg daily, and we were asked to see the patient in consultation COVID-19 pneumonia The patient is seen today 09/23/2021 in follow-up on the regular medical floor. She is currently sitting up at the bedside. Awake and alert in no acute distress. Doing about the same today as compared to yesterday. Routine O2 saturations at 90% on 6 L high flow nasal cannula. Afebrile. Hemodynamically stable. White count 11.3. Hemoglobin 13.1. D-dimer 0.52. C-reactive protein 5.0. Day #2 of Remdesivir. She is continued on Decadron 6 mg daily. Lovenox 40 mg daily. Vitamin supplements. The patient is seen today 09/24/2021 in follow-up on the regular medical floor. She is awake and alert in no acute distress. Sitting up in a chair at the bedside. Now requiring 9 L high flow nasal cannula to maintain O2 saturations in the low 90s. Chest x-ray continues to show significant bilateral groundglass opacities bilaterally. No pneumothorax or pleural effusion. D-dimer 0.95. LDH 2074. C-reactive protein 3.2. Trending down. This is day #3 of Remdesivir. She remains on Lovenox, Decadron, vitamin supplements. Objective - Vital Signs Vital signs: Vital Signs Temp 98.0 F 09/24/21 10:00 Pulse 86 09/24/21 10:00 Resp 20 09/24/21 10:00 BP 132/88 09/24/21 10:00 Pulse Ox 94 L 09/24/21 10:00 Intake & Output 09/23/21 09/24/21 09/24/21 18:59 06:59 18:59 Intake Total 750 250 Balance 750 250 Intake: Intake, IV Titration 750 250 Amount Lactated Ringers 1,000 ml 750 @ 75 mls/hr IV .[id number] [facility] Rx#:[id number] Remdesivir 100 mg In 250 Sodium Chloride 0.9% 250 ml @ 250 mls/hr IVPB DAILY@1200 [facility] Rx#: [id number] Other: # Voids 3 - Exam GENERAL EXAM: Alert, pleasant 56-year-old female patient, on 9 L high flow nasal cannula, comfortable in no apparent distress. HEAD: Normocephalic. EYES: Normal reaction of pupils, equal size. NOSE: Clear with pink turbinates. THROAT: No erythema or exudates. NECK: No masses, no JVD. CHEST: No chest wall deformity. LUNGS: Equal air entry with crackles in bilateral bases. CVS: S1 and S2 normal with no audible murmur, regular rhythm. ABDOMEN: No hepatosplenomegaly, normal bowel sounds, no guarding or rigidity. SPINE: No scoliosis or deformity SKIN: No rashes CENTRAL NERVOUS SYSTEM: No focal deficits, tone is normal in all 4 extremities. EXTREMITIES: There is no peripheral edema. No clubbing, no cyanosis. Peripheral pulses are intact. - Labs CBC & Chem 7: 09/23/21 06:36 09/21/21 17:15 Labs: Abnormal Lab Results - Last 24 Hours (Table) 09/24/21 09/24/21 Range/Units 11:50 11:50 D-Dimer 0.95 H (<0.60) mg/L FEU Lactate Dehydrogenase 2074 H (313-618) U/L C-Reactive Protein 3.2 H (<1.0) mg/dL Microbiology - Last 24 Hours (Table) 09/21/21 17:34 Blood Culture - Preliminary Blood No Growth after 48 hours 09/21/21 17:15 Blood Culture - Preliminary Blood No Growth after 48 hours Assessment and Plan Assessment: 1 Acute hypoxic respiratory failure related to acute COVID-19 pneumonia, with onset of symptoms within 1 week of presentation to the emergency department. Remdesivir started on 09/22/2021 2 Incomplete COVID-19 vaccination, patient received 1 dose of COVID-19 vaccine in November 2020, developed a reaction with skin rash, hypertension, and tingling lips, and did not complete her second injection 3 Elevated inflammatory markers related to acute viral pneumonia 4 Elevated d-dimer without evidence of pulmonary embolism on CT angiogram Plan: The patient was seen and evaluated by Dr. Khanna Chest x-ray and labs reviewed Up to 9 L nasal cannula Day #3 Remdesivir Continue Lovenox, Decadron, vitamin supplements Titrate the FiO2 as tolerated We will continue to follow I, the cosigning physician, performed a history & physical examination of the patient. Lungs sounds coarse crackles in the bilateral bases. Maintaining good O2 saturations in the 90s on 9 liters high flow nasal cannula. I discussed the assessment and plan of care with my nurse practitioner, Pat Wong. I attest to the above note as dictated by her.
--- NOTE | 2021-09-24 15:41 | P.PN ---
Progress Note - Text Progress Note Date: 09/24/21 Chief Complaint: Short of breath This is a 56-year-old patient who follows with Dr. Coffey. Normally in good health. Was on taking any medications. Patient received off for short of posterior on it this year. Few minutes up to that she had developed a rash on the chest. Blood pressure was a bit high. Some tingling in the lips. There was no lip swelling no tongue swelling no choking no shortness of breath. Given this reaction she did not take the second dose of COVID shock. Patient for about a week has been getting progressively more short of breath. Having diarrhea for last 3 days. Everything tastes salty. Having. Slight headache. Has a dry cough. Her pulse ox at room has been off and on 84%. Poor appetite. Has been getting dizzy. She talk to her family doctor on videophone. He asked her to come in to the hospital. Patient tested positive for COVID 5 days ago. Tired and rundown. She been having some fevers. Admitted with COVID 19 pneumonitis, acute hypoxic respiratory failure. Started on dexamethasone, oxygen. IV fluids. 09/22/2021: Sitting up in a chair. Some shortness of breath. Did eat some. 91% on 3 L. Tired. Started on Remdesivir IV. Diarrhea present 09/23/2021: Up in a chair. Short of breath. FiO2 increased to 6 L. Tired. Diarrhea better. Eating about 50%. 09/24/2021: Up in a chair. Short of breath. Oral intake fair. Some cough. FiO2 increased to 9 L. No diarrhea. Review of systems: Was done for constitutional, cardiovascular, GI, pulmonary. relevant finding as above Active Medications Acetaminophen (Acetaminophen Tab 325 Mg Tab) 650 mg PO Q6HR PRN PRN Reason: Mild Pain or Fever > 100.5 Last Admin: 09/21/21 21:59 Dose: 650 mg Documented by: Al Hydroxide/Mg Hydroxide (Mag Hydrox/Al Hydrox/Simeth 30 Ml Cup) 15 ml PO Q6HR PRN PRN Reason: Indigestion Alprazolam (Alprazolam 0.25 Mg Tab) 0.25 mg PO Q6HR PRN PRN Reason: Anxiety Ascorbic Acid (Ascorbic Acid 500 Mg Tab) 500 mg PO BID [facility] Last Admin: 09/24/21 08:07 Dose: 500 mg Documented by: Calcium Carbonate/Glycine (Calcium Carbonate 500 Mg Chewable) 1,000 mg PO Q4HR PRN PRN Reason: Dyspepsia Cholecalciferol (Cholecalciferol 25 Mcg (1000 Iu) Tablet) 100 mcg PO DAILY [facility] Last Admin: 09/24/21 08:08 Dose: 100 mcg Documented by: Dexamethasone (Dexamethasone 2 Mg Tab) 6 mg PO DAILY [facility] Last Admin: 09/24/21 08:08 Dose: 6 mg Documented by: Enoxaparin Sodium (Enoxaparin 40 Mg/0.4 Ml Syringe) 40 mg SQ DAILY [facility] Last Admin: 09/24/21 08:07 Dose: 40 mg Documented by: Remdesivir 100 mg/ Sodium (Chloride) 250 mls @ 250 mls/hr IVPB DAILY@1200 [facility] Stop: 09/26/21 12:59 Last Admin: 09/24/21 11:55 Dose: 250 mls/hr Documented by: Lactulose (Lactulose 20 Gm/30 Ml Cup) 20 gm PO DAILY PRN PRN Reason: Constipation Magnesium Hydroxide (Magnesium Hydroxide 2,400 Mg/10 Ml Cup) 2,400 mg PO DAILY PRN PRN Reason: Constipation Melatonin (Melatonin 3 Mg Tablet) 3 mg PO HS PRN PRN Reason: Insomnia Last Admin: 09/23/21 20:41 Dose: 3 mg Documented by: Naloxone HCl (Naloxone 0.4 Mg/Ml 1 Ml Vial) 0.2 mg IV Q2M PRN PRN Reason: Opioid Reversal Ondansetron HCl (Ondansetron 4 Mg/2 Ml Vial) 4 mg IVP Q8HR PRN PRN Reason: Nausea And Vomiting Psyllium Hydrophilic Mucilloid (Psyllium Husk 100% 6 Gm Packet) 6 gm PO DAILY [facility] Last Admin: 09/24/21 08:08 Dose: 6 gm Documented by: Zinc Sulfate (Zinc Sulfate 220 Mg Cap) 220 mg PO DAILY [facility] Last Admin: 09/24/21 08:07 Dose: 220 mg Documented by: Past medical history: Unremarkable Social history: Does not smoke or drink alcohol. . 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 Family history: Reviewed, noncontributory to presentation Physical examination: VITAL SIGNS: 98.4, 60, 20, 132/74, 95% on 9 L GENERAL: Sitting up in a chair, tired, short of breath LUNGS: Respiratory rate increased, . PSYCH: Alert and oriented x3; mood and affect tiredl. NEUROLOGICAL: Cranial nerves grossly intact; no facial asymmetry, Rest of the exam per pulmonary, nursing INVESTIGATIONS, reviewed in the clinical context: September 24: D-dimer 0.95 CRP 3.2 Chest x-ray film personally reviewed by me-[September 24]: Scattered infiltrates September 23: White count 11.3 hemoglobin 13.1 and platelets 210 d-dimer 0.5 to CRP 5.0 WBC 6.4 hemoglobin 14.2 platelets 142 d-dimer 0.81 potassium 4.2 BUN 16 creatinine 0.70 CRP 16.8 Chest x-ray film personally reviewed by me-bilateral infiltrates Assessment and plan: -Acute bilateral COVID 19 pneumonitis. Received her first dose of vaccine in November. Had ALLERGIC reaction and did not get the second short period patient's symptoms have been present for about a week: Slow to respond Dexamethasone. IV Remdesivir-day 2. -Acute hypoxic respiratory failure from COVID 19 pneumonitis.: Worsening Oxygen currently 9 L Incentive spirometry -Sepsis from COVID 19 pneumonitis IV fluids -Thrombocytopenia from COVID 19: Better Follow CBC -Acute medical debility from COVID 19. Dexamethasone 6 mg daily. IV Remdesivir. 9L oxygen. Incentive spirometry. Discussed with the patient.
--- NOTE | 2021-09-24 18:24 | PN ---
PROGRESS NOTE DATE OF SERVICE: 09/24/2021 REASON FOR FOLLOWUP: COVID-19 pneumonia. INTERVAL HISTORY: The patient is afebrile. The patient is breathing slightly comfortably. The patient denies having any chest pain. Did have a cough. No worsening sputum. No nausea, no vomiting. No abdominal pain. No worsening diarrhea. PHYSICAL EXAMINATION: Blood pressure 132/74, pulse of 50, temperature 98.4. She is 95% on 9 L nasal cannula. General description is a middle-aged female up in the bed in no distress. Respiratory system: Unlabored breathing. Coarse breath sounds at bases. No wheeze. Heart S1, S2. Regular rate. Abdomen soft, no tenderness. Extremities: No edema of the feet. LAB: D-dimer 0.95. LDH is down. CRP is down. IMPRESSION/PLAN: Patient with acute COVID-19 pneumonia and this patient did have minimal clinical improvement. Patient is currently covered with Remdesivir, dexamethasone, Lovenox, zinc and ascorbic acid along with respiratory support and monitor clinical course closely. MMODL / IJN: [id number] /
[2021-09-25] MEDS: dexAMETHasone 2 MG TAB PO SCH (08:18)
[2021-09-25] MEDS: ASCORBIC ACID 500 MG TAB PO SCH ×2 (08:18→20:48)
[2021-09-25] MEDS: ZINC SULFATE 220 MG CAP PO SCH (08:18)
[2021-09-25] MEDS: CHOLECALCIFEROL 25 MCG (1000 IU) TABLET PO SCH (08:18)
[2021-09-25] MEDS: ENOXAPARIN 40 MG/0.4 ML SYRINGE SQ SCH (08:18)
[2021-09-25] MEDS: PSYLLIUM HUSK 100% 6 GM PACKET PO SCH (08:19)
[2021-09-25 11:48] LABS: C Reactive Protein 1.9 mg/dL (0.00-0.80)
[2021-09-25] MEDS: REMDESIVIR 100 MG in SODIUM CHLORIDE 0.9% 250 ML IVPB SCH (12:08)
--- NOTE | 2021-09-25 14:55 | P.PN ---
Subjective Progress Note Date: 09/25/21 Principal diagnosis: COVID-19 pneumonia This is a 56-year-old female patient of Dr. Coffey with no significant medical history, who presented to the emergency department on 09/21/2021 for evaluation of worsening dyspnea, patient wears a apple Smart watch and when she checked her oxygen it was noted to be very low measuring 60-70%. She has been having a cough and a fever for about 1 week. She called her primary care doctor and was told to come into the emergency department. Patient denied any chest pain, patient was tested positive for COVID 19 5 days ago. No nausea or vomiting, no abdominal pain. Patient did have some diarrhea related to COVID-19 infection. Patient had her first COVID-19 injection back in November 2020 however she developed a reaction to it with development of a rash, lips tingling and hypertension and she did not receive her second COVID-19 injection. Chest x-ray in emergency department showed some patchy interstitial mild pneumonia. Admissi on showed white blood cell count of 6.4, hemoglobin 14.2, platelet count was 442, INR was 0.9, d-dimer 0.81, sodium was 134, potassium is 4.2, chloride was 96, CO2 is 27, BUN was 16, creatinine was 0.7, lactic acid was 1.4, ferritin level was 2674, AST was 178, ALT was 53, LDH was 3014, CRP was 16.8, pro calcitonin level was 0.17. CTA chest was obtained showing no evidence of pulmonary embolism, and extensive bilateral pneumonia. She was started on Decadron, prophylactic dose Lovenox 40 mg daily, and we were asked to see the patient in consultation COVID-19 pneumonia The patient is seen today 09/23/2021 in follow-up on the regular medical floor. She is currently sitting up at the bedside. Awake and alert in no acute distress. Doing about the same today as compared to yesterday. Routine O2 saturations at 90% on 6 L high flow nasal cannula. Afebrile. Hemodynamically stable. White count 11.3. Hemoglobin 13.1. D-dimer 0.52. C-reactive protein 5.0. Day #2 of Remdesivir. She is continued on Decadron 6 mg daily. Lovenox 40 mg daily. Vitamin supplements. The patient is seen today 09/24/2021 in follow-up on the regular medical floor. She is awake and alert in no acute distress. Sitting up in a chair at the bedside. Now requiring 9 L high flow nasal cannula to maintain O2 saturations in the low 90s. Chest x-ray continues to show significant bilateral groundglass opacities bilaterally. No pneumothorax or pleural effusion. D-dimer 0.95. LDH 2074. C-reactive protein 3.2. Trending down. This is day #3 of Remdesivir. She remains on Lovenox, Decadron, vitamin supplements. The patient is seen today 09/25/2021 in follow-up on the regular medical floor. She is currently sitting up in chair at the bedside. Awake and alert in no acute distress. Feeling a bit better today compared to yesterday. He is requiring 10 L high flow nasal cannula to maintain O2 saturations in the 90s. This is day #4 of Remdesivir. D-dimer 1.57. C-reactive protein 1.90. LDH 730. Improving. Continued on Decadron, Lovenox, vitamin supplements. Objective - Vital Signs Vital signs: Vital Signs Temp 98.3 F 09/25/21 10:00 Pulse 88 09/25/21 10:00 Resp 20 09/25/21 10:00 BP 115/75 09/25/21 10:00 Pulse Ox 91 L 09/25/21 10:00 Intake & Output 09/24/21 09/25/21 09/25/21 18:59 06:59 18:59 Intake Total 250 250 Balance 250 250 Intake: Intake, IV Titration 250 250 Amount Remdesivir 100 mg In 250 250 Sodium Chloride 0.9% 250 ml @ 250 mls/hr IVPB DAILY@1200 [facility] Rx#: [id number] Other: # Voids 2 - Exam GENERAL EXAM: Alert, pleasant 56-year-old female patient, on 10 L high flow nasa l cannula, comfortable in no apparent distress. HEAD: Normocephalic. EYES: Normal reaction of pupils, equal size. NOSE: Clear with pink turbinates. THROAT: No erythema or exudates. NECK: No masses, no JVD. CHEST: No chest wall deformity. LUNGS: Equal air entry with crackles in bilateral bases. CVS: S1 and S2 normal with no audible murmur, regular rhythm. ABDOMEN: No hepatosplenomegaly, normal bowel sounds, no guarding or rigidity. SPINE: No scoliosis or deformity SKIN: No rashes CENTRAL NERVOUS SYSTEM: No focal deficits, tone is normal in all 4 extremities. EXTREMITIES: There is no peripheral edema. No clubbing, no cyanosis. Peripheral pulses are intact. - Labs CBC & Chem 7: 09/23/21 06:36 09/21/21 17:15 Labs: Abnormal Lab Results - Last 24 Hours (Table) 09/25/21 09/25/21 Range/Units 07:01 07:01 D-Dimer 1.57 H (<0.60) mg/L FEU Lactate Dehydrogenase 730 H (120-246) U/L C-Reactive Protein 1.90 H (0.00-0.80) mg/dL Microbiology - Last 24 Hours (Table) 09/21/21 17:34 Blood Culture - Preliminary Blood No Growth after 72 hours 09/21/21 17:15 Blood Culture - Preliminary Blood No Growth after 72 hours Assessment and Plan Assessment: 1 Acute hypoxic respiratory failure related to acute COVID-19 pneumonia, with onset of symptoms within 1 week of presentation to the emergency department. Remdesivir started on 09/22/2021 2 Incomplete COVID-19 vaccination, patient received 1 dose of COVID-19 vaccine in November 2020, developed a reaction with skin rash, hypertension, and tingling lips, and did not complete her second injection 3 Elevated inflammatory markers related to acute viral pneumonia 4 Elevated d-dimer without evidence of pulmonary embolism on CT angiogram Plan: The patient was seen and evaluated by Dr. Khanna Labs reviewed, inflammatory markers improving Day #4 Remdesivir Continue Lovenox, Decadron, vitamin supplements Titrate the FiO2 as tolerated We will continue to follow I, the cosigning physician, performed a history & physical examination of the patient. Lungs sounds coarse crackles in the bilateral bases. Maintaining good O2 saturations in the 90s on 10 liters high flow nasal cannula. I discussed the assessment and plan of care with my nurse practitioner, Pat Wong. I attest to the above note as dictated by her.
--- NOTE | 2021-09-25 15:17 | P.PN ---
Progress Note - Text Progress Note Date: 09/25/21 Chief Complaint: Short of breath This is a 56-year-old patient who follows with Dr. Coffey. Normally in good health. Was on taking any medications. Patient received off for short of posterior on it this year. Few minutes up to that she had developed a rash on the chest. Blood pressure was a bit high. Some tingling in the lips. There was no lip swelling no tongue swelling no choking no shortness of breath. Given this reaction she did not take the second dose of COVID shock. Patient for about a week has been getting progressively more short of breath. Having diarrhea for last 3 days. Everything tastes salty. Having. Slight headache. Has a dry cough. Her pulse ox at room has been off and on 84%. Poor appetite. Has been getting dizzy. She talk to her family doctor on videophone. He asked her to come in to the hospital. Patient tested positive for COVID 5 days ago. Tired and rundown. She been having some fevers. Admitted with COVID 19 pneumonitis, acute hypoxic respiratory failure. Started on dexamethasone, oxygen. IV fluids. 09/22/2021: Sitting up in a chair. Some shortness of breath. Did eat some. 91% on 3 L. Tired. Started on Remdesivir IV. Diarrhea present 09/23/2021: Up in a chair. Short of breath. FiO2 increased to 6 L. Tired. Diarrhea better. Eating about 50%. 09/24/2021: Up in a chair. Short of breath. Oral intake fair. Some cough. FiO2 increased to 9 L. No diarrhea. 09/25/2021: Up in a chair. Remains short of breath. Some cough. Decrease appetite. FiO2 increased to 10 L. D-dimer increasing. I increase the Lovenox to therapeutic dose. 80 mg subcu every 12. Review of systems: Was done for constitutional, cardiovascular, GI, pulmonary. relevant finding as above Active Medications Acetaminophen (Acetaminophen Tab 325 Mg Tab) 650 mg PO Q6HR PRN PRN Reason: Mild Pain or Fever > 100.5 Last Admin: 09/21/21 21:59 Dose: 650 mg Documented by: Al Hydroxide/Mg Hydroxide (Mag Hydrox/Al Hydrox/Simeth 30 Ml Cup) 15 ml PO Q6HR PRN PRN Reason: Indigestion Alprazolam (Alprazolam 0.25 Mg Tab) 0.25 mg PO Q6HR PRN PRN Reason: Anxiety Ascorbic Acid (Ascorbic Acid 500 Mg Tab) 500 mg PO BID [facility] Last Admin: 09/25/21 08:18 Dose: 500 mg Documented by: Calcium Carbonate/Glycine (Calcium Carbonate 500 Mg Chewable) 1,000 mg PO Q4HR PRN PRN Reason: Dyspepsia Cholecalciferol (Cholecalciferol 25 Mcg (1000 Iu) Tablet) 100 mcg PO DAILY [facility] Last Admin: 09/25/21 08:18 Dose: 100 mcg Documented by: Dexamethasone (Dexamethasone 2 Mg Tab) 6 mg PO DAILY [facility] Last Admin: 09/25/21 08:18 Dose: 6 mg Documented by: Enoxaparin Sodium (Enoxaparin 80 Mg/0.8 Ml Syringe) 80 mg SQ Q12HR [facility] Remdesivir 100 mg/ Sodium (Chloride) 250 mls @ 250 mls/hr IVPB DAILY@1200 [facility] Stop: 09/26/21 12:59 Last Admin: 09/25/21 12:08 Dose: 250 mls/hr Documented by: Lactulose (Lactulose 20 Gm/30 Ml Cup) 20 gm PO DAILY PRN PRN Reason: Constipation Magnesium Hydroxide (Magnesium Hydroxide 2,400 Mg/10 Ml Cup) 2,400 mg PO DAILY PRN PRN Reason: Constipation Melatonin (Melatonin 3 Mg Tablet) 3 mg PO HS PRN PRN Reason: Insomnia Last Admin: 09/23/21 20:41 Dose: 3 mg Documented by: Naloxone HCl (Naloxone 0.4 Mg/Ml 1 Ml Vial) 0.2 mg IV Q2M PRN PRN Reason: Opioid Reversal Ondansetron HCl (Ondansetron 4 Mg/2 Ml Vial) 4 mg IVP Q8HR PRN PRN Reason: Nausea And Vomiting Psyllium Hydrophilic Mucilloid (Psyllium Husk 100% 6 Gm Packet) 6 gm PO DAILY [facility] Last Admin: 09/25/21 08:19 Dose: Not Given Documented by: Zinc Sulfate (Zinc Sulfate 220 Mg Cap) 220 mg PO DAILY [facility] Last Admin: 09/25/21 08:18 Dose: 220 mg Documented by: Past medical history: Unremarkable Social history: Does not smoke or drink alcohol. . 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 Family history: Reviewed, noncontributory to presentation Physical examination: VITAL SIGNS: 98.3, 88, 20, 150s/75, 91% on 10 L GENERAL: Sitting up in a chair, tired, short of breath LUNGS: Respiratory rate increased, . PSYCH: Alert and oriented x3; mood and affect tiredl. NEUROLOGICAL: Cranial nerves grossly intact; no facial asymmetry, Rest of the exam per pulmonary, nursing INVESTIGATIONS, reviewed in the clinical context: September 25: D-dimer 1.57 CRP 1.9 September 24: D-dimer 0.95 CRP 3.2 Chest x-ray film personally reviewed by me-[September 24]: Scattered infiltrates September 23: White count 11.3 hemoglobin 13.1 and platelets 210 d-dimer 0.5 to CRP 5.0 WBC 6.4 hemoglobin 14.2 platelets 142 d-dimer 0.81 potassium 4.2 BUN 16 creatinine 0.70 CRP 16.8 Chest x-ray film personally reviewed by me-bilateral infiltrates Assessment and plan: -Acute bilateral COVID 19 pneumonitis. Received her first dose of vaccine in November. Had ALLERGIC reaction and did not get the second short period patient's symptoms have been present for about a week: Worsening Dexamethasone. IV Remdesivir-day 2. -Acute hypoxic respiratory failure from COVID 19 pneumonitis.: Worsening Oxygen currently 10 L Incentive spirometry -Sepsis from COVID 19 pneumonitis IV fluids -Thrombocytopenia from COVID 19: Better Follow CBC -Acute medical debility from COVID 19. Dexamethasone 6 mg daily. IV Remdesivir. 10 L oxygen. Incentive spirometry. Increase Lovenox to therapeutic dose that is 80 mg subcu every 12. Discussed with patient.
[2021-09-25] MEDS: ENOXAPARIN 80 MG/0.8 ML SYRINGE SQ SCH (20:47)
--- NOTE | 2021-09-26 01:10 | PN ---
PROGRESS NOTE DATE OF SERVICE: 09/25/2021 REASON FOR FOLLOWUP: COVID-19 pneumonia. INTERVAL HISTORY: The patient is afebrile. The patient is breathing slightly comfortably. Cough has decreased in intensity. No nausea, no vomiting. No abdominal pain or diarrhea. PHYSICAL EXAMINATION: Blood pressure 121/79, pulse of 77, temperature 98.5. She is 90% on 10 L high-flow oxygen. General description is a middle-aged female up in the chair in no distress. RESPIRATORY SYSTEM: Unlabored breathing. Coarse crackles at the bases bilaterally. No wheeze. HEART: S1, S2. Regular rate and rhythm. ABDOMEN: Soft. No tenderness. LABS: Hemoglobin is 13.1, white count 11.3. D-dimer is up to 1.57. DIAGNOSTIC IMPRESSION AND PLAN: Patient with acute COVID-19 pneumonia; slight clinical worsening, as the patient is requiring more oxygen. Did have elevated D-dimer and Lovenox has been adjusted up. Currently on dexamethasone, remdesivir, zinc and ascorbic acid; to continue and monitor clinical course closely. Continue supportive care. MMODL / IJN: [id number] /
[2021-09-26] MEDS: ZINC SULFATE 220 MG CAP PO SCH (07:53)
[2021-09-26] MEDS: dexAMETHasone 2 MG TAB PO SCH (07:54)
[2021-09-26] MEDS: ASCORBIC ACID 500 MG TAB PO SCH ×2 (07:54→21:01)
[2021-09-26] MEDS: ENOXAPARIN 80 MG/0.8 ML SYRINGE SQ SCH (07:54)
[2021-09-26] MEDS: CHOLECALCIFEROL 25 MCG (1000 IU) TABLET PO SCH (07:54)
[2021-09-26] MEDS: PSYLLIUM HUSK 100% 6 GM PACKET PO SCH (07:55)
--- NOTE | 2021-09-26 08:37 | XR ---
EXAMINATION TYPE: XR chest 1V portable DATE OF EXAM: 09/26/2021 COMPARISON: 03/05/2021 HISTORY: Shortness of breath TECHNIQUE: Single frontal view of the chest is obtained. FINDINGS: Bilateral interstitial and alveolar infiltrates with subcutaneous emphysema. Appears to be pneumomediastinum. No sizable pleural effusion. Heart size normal. Report called to the patient's nu rse a 20 2:00 AM 09/26/2021. IMPRESSION: 1. Progression of bilateral infiltrate correlate for pneumonia. There also is development of subcutan eous emphysema and pneumomediastinum correlate clinically.
[2021-09-26] MEDS: REMDESIVIR 100 MG in SODIUM CHLORIDE 0.9% 250 ML IVPB SCH (11:41)
[2021-09-26 13:22] LABS: C Reactive Protein 5.4 mg/dL (0.00-0.80)
[2021-09-26] MEDS: BARICITINIB 2 MG TABLET PO SCH (13:50)
--- NOTE | 2021-09-26 15:08 | P.PN ---
Subjective Progress Note Date: 09/26/21 Principal diagnosis: Coronavirus associated pneumonia COVID-19 pneumonia This is a 56-year-old female patient of Dr. Coffey with no significant medical history, who presented to the emergency department on 09/21/2021 for evaluation of worsening dyspnea, patient wears a apple Smart watch and when she checked her oxygen it was noted to be very low measuring 60-70%. She has been having a cough and a fever for about 1 week. She called her primary care doctor and was told to come into the emergency department. Patient denied any chest pain, patient was tested positive for COVID 19 5 days ago. No nausea or vomiting, no abdominal pain. Patient did have some diarrhea related to COVID-19 infection. Patient had her first COVID-19 injection back in November 2020 however she developed a reaction to it with development of a rash, lips tingling and hypertension and she did not receive her second COVID-19 injection. Chest x-ray in emergency department showed some patchy interstitial mild pneumonia. Admission showed white blood cell count of 6.4, hemoglobin 14.2, platelet count was 442, INR was 0.9, d-dimer 0.81, sodium was 134, potassium is 4.2, chloride was 96, CO2 is 27, BUN was 16, creatinine was 0.7, lactic acid was 1.4, ferritin level was 2674, AST was 178, ALT was 53, LDH was 3014, CRP was 16.8, pro calcitonin level was 0.17. CTA chest was obtained showing no evidence of pulmonary embolism, and extensive bilateral pneumonia. She was started on Decadron, prophylactic dose Lovenox 40 mg daily, and we were asked to see the patient in consultation COVID-19 pneumonia The patient is seen today 09/23/2021 in follow-up on the regular medical floor. She is currently sitting up at the bedside. Awake and alert in no acute distress. Doing about the same today as compared to yesterday. Routine O2 saturations at 90% on 6 L high flow nasal cannula. Afebrile. Hemodynamically stable. White count 11.3. Hemoglobin 13.1. D-dimer 0.52. C-reactive protein 5.0. Day #2 of Remdesivir. She is continued on Decadron 6 mg daily. Lovenox 40 mg daily. Vitamin supplements. The patient is seen today 09/24/2021 in follow-up on the regular medical floor. She is awake and alert in no acute distress. Sitting up in a chair at the bedside. Now requiring 9 L high flow nasal cannula to maintain O2 saturations in the low 90s. Chest x-ray continues to show significant bilateral groundglass opacities bilaterally. No pneumothorax or pleural effusion. D-dimer 0.95. LDH 2074. C-reactive protein 3.2. Trending down. This is day #3 of Remdesivir. She remains on Lovenox, Decadron, vitamin supplements. The patient is seen today 09/25/2021 in follow-up on the regular medical floor. She is currently sitting up in chair at the bedside. Awake and alert in no acute distress. Feeling a bit better today compared to yesterday. He is requiring 10 L high flow nasal cannula to maintain O2 saturations in the 90s. This is day #4 of Remdesivir. D-dimer 1.57. C-reactive protein 1.90. LDH 730. Improving. Continued on Decadron, Lovenox, vitamin supplements. Progress note dated 09/26/2021. The patient is again seen on the general medical floor, room 485. The patient's chest x-rays reviewed. Additional subcutaneous emphysema, pneumomediastinum, but no obvious pneumothorax. The patient was placed on BiPAP, and seems to be doing a lot better. Lab data today included a d-dimer of 1.06, and a C-reactive protein of 5.40. Chest x-ray shows diffuse bilateral infiltrates, with subcutaneous emphysema, and pneumomediastinum. The patient is currently on dexamethasone, Lovenox, and ALEXX. She has completed her REM today. Objective - Vital Signs Vital signs: Vital Signs Temp 98.9 F 09/26/21 09:14 Pulse 101 H 09/26/21 09:14 Resp 20 09/26/21 09:14 BP 122/76 09/26/21 09:14 Pulse Ox 96 09/26/21 10:35 Intake & Output 09/25/21 09/26/21 09/26/21 18:59 06:59 18:59 Intake Total 250 Balance 250 Intake: Intake, IV Titration 250 Amount Remdesivir 100 mg In 250 Sodium Chloride 0.9% 250 ml @ 250 mls/hr IVPB DAILY@1200 [facility] Rx#: [id number] Other: # Voids 3 - Exam No acute distress, oriented 3, Currently on BiPAP at 12/6. HEENT examination is grossly unremarkable. Neck supple. Full range of motion. No adenopathy thyromegaly or neck vein distention. Cardiovascular examination reveals regular rhythm rate. S1-S2 normal. No S3 or S4. No discernible murmur noted. Heart sounds are distant. Heart rate 91 bpm. Lungs reveal bilateral rhonchi. No wheezes or crackles. Breath sounds equal. Saturations 96% on BiPAP. Abdomen soft bowel sounds are heard. No masses or tenderness. Extremities are intact. No cyanosis clubbing or edema. Skin is without rash or lesion. Neurologic examination is brief but nonfocal. - Labs CBC & Chem 7: 09/23/21 06:36 09/21/21 17:15 Labs: Abnormal Lab Results - Last 24 Hours (Table) 09/26/21 09/26/21 Range/Units 06:51 06:51 D-Dimer 1.06 H (<0.60) mg/L FEU C-Reactive Protein 5.40 H (0.00-0.80) mg/dL Microbiology - Last 24 Hours (Table) 09/21/21 17:15 Blood Culture - Preliminary Blood No Growth after 96 hours 09/21/21 17:34 Blood Culture - Preliminary Blood No Growth after 96 hours Assessment and Plan Assessment: Acute hypoxemic respiratory failure secondary to coronavirus associated pneumonia. Status post incomplete coronavirus vaccination. Elevated inflammatory marker secondary to coronavirus infection. No evidence of pulmonary embolism on CT angiogram. Plan: Plan dated 09/26/2021. The patient's chest x-rays reviewed. There is no obvious pneumothorax. There was subcutaneous emphysema and pneumomediastinum. The patient was placed on BiPAP. Currently, she is very stable with a saturation of 96%. There is no reason to transfer this patient to the intensive care unit, as requested by the supervising nurse on the fourth floor. This was discussed earlier with the nurse taking care of the patient. We will continue to follow and make recommendations where appropriate. Should there be a change in the patient's clinical status, we can reevaluate the patient at that time. Time with Patient: Less than 30
--- NOTE | 2021-09-26 19:30 | P.PN ---
Progress Note - Text Progress Note Date: 09/26/21 Chief Complaint: Short of breath This is a 56-year-old patient who follows with Dr. Coffey. Normally in good health. Was on taking any medications. Patient received off for short of posterior on it this year. Few minutes up to that she had developed a rash on the chest. Blood pressure was a bit high. Some tingling in the lips. There was no lip swelling no tongue swelling no choking no shortness of breath. Given this reaction she did not take the second dose of COVID shock. Patient for about a week has been getting progressively more short of breath. Having diarrhea for last 3 days. Everything tastes salty. Having. Slight headache. Has a dry cough. Her pulse ox at room has been off and on 84%. Poor appetite. Has been getting dizzy. She talk to her family doctor on videophone. He asked her to come in to the hospital. Patient tested positive for COVID 5 days ago. Tired and rundown. She been having some fevers. Admitted with COVID 19 pneumonitis, acute hypoxic respiratory failure. Started on dexamethasone, oxygen. IV fluids. 09/22/2021: Sitting up in a chair. Some shortness of breath. Did eat some. 91% on 3 L. Tired. Started on Remdesivir IV. Diarrhea present 09/23/2021: Up in a chair. Short of breath. FiO2 increased to 6 L. Tired. Diarrhea better. Eating about 50%. 09/24/2021: Up in a chair. Short of breath. Oral intake fair. Some cough. FiO2 increased to 9 L. No diarrhea. 09/25/2021: Up in a chair. Remains short of breath. Some cough. Decrease appetite. FiO2 increased to 10 L. D-dimer increasing. I increase the Lovenox to therapeutic dose. 80 mg subcu every 12. 09/26/2021: Up in a recliner. More short of breath. On Airvo 60 L and FiO2 90%. Similarly short of breath. Decrease appetite. Tired. Started on Baricitinib. Remdesivir completed. Review of systems: Was done for constitutional, cardiovascular, GI, pulmonary. relevant finding as above Active Medications Acetaminophen (Acetaminophen Tab 325 Mg Tab) 650 mg PO Q6HR PRN PRN Reason: Mild Pain or Fever > 100.5 Last Admin: 09/21/21 21:59 Dose: 650 mg Documented by: Al Hydroxide/Mg Hydroxide (Mag Hydrox/Al Hydrox/Simeth 30 Ml Cup) 15 ml PO Q6HR PRN PRN Reason: Indigestion Alprazolam (Alprazolam 0.25 Mg Tab) 0.25 mg PO Q6HR PRN PRN Reason: Anxiety Ascorbic Acid (Ascorbic Acid 500 Mg Tab) 500 mg PO BID [facility] Last Admin: 09/26/21 07:54 Dose: 500 mg Documented by: Baricitinib (Baricitinib 2 Mg Tablet) 4 mg PO DAILY [facility] Last Admin: 09/26/21 13:50 Dose: 4 mg Documented by: Calcium Carbonate/Glycine (Calcium Carbonate 500 Mg Chewable) 1,000 mg PO Q4HR PRN PRN Reason: Dyspepsia Cholecalciferol (Cholecalciferol 25 Mcg (1000 Iu) Tablet) 100 mcg PO DAILY [facility] Last Admin: 09/26/21 07:54 Dose: 100 mcg Documented by: Dexamethasone (Dexamethasone 2 Mg Tab) 6 mg PO DAILY [facility] Last Admin: 09/26/21 07:54 Dose: 6 mg Documented by: Enoxaparin Sodium (Enoxaparin 40 Mg/0.4 Ml Syringe) 40 mg SQ DAILY [facility] Lactulose (Lactulose 20 Gm/30 Ml Cup) 20 gm PO DAILY PRN PRN Reason: Constipation Magnesium Hydroxide (Magnesium Hydroxide 2,400 Mg/10 Ml Cup) 2,400 mg PO DAILY PRN PRN Reason: Constipation Melatonin (Melatonin 3 Mg Tablet) 3 mg PO HS PRN PRN Reason: Insomnia Last Admin: 09/23/21 20:41 Dose: 3 mg Documented by: Naloxone HCl (Naloxone 0.4 Mg/Ml 1 Ml Vial) 0.2 mg IV Q2M PRN PRN Reason: Opioid Reversal Ondansetron HCl (Ondansetron 4 Mg/2 Ml Vial) 4 mg IVP Q8HR PRN PRN Reason: Nausea And Vomiting Psyllium Hydrophilic Mucilloid (Psyllium Husk 100% 6 Gm Packet) 6 gm PO DAILY [facility] Last Admin: 09/26/21 07:55 Dose: 6 gm Documented by: Zinc Sulfate (Zinc Sulfate 220 Mg Cap) 220 mg PO DAILY [facility] Last Admin: 09/26/21 07:53 Dose: 220 mg Documented by: Past medical history: Unremarkable Social history: Does not smoke or drink alcohol. . 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 Family history: Reviewed, noncontributory to presentation Physical examination: VITAL SIGNS: 98.9, 101, 20, 122.76, 82% on Airvo. GENERAL: Sitting up in a chair, tired, short of breath LUNGS: Respiratory rate increased, . PSYCH: Alert and oriented x3; mood and affect tired NEUROLOGICAL: Cranial nerves grossly intact; no facial asymmetry, moving all her limbs Rest of the exam per pulmonary, nursing INVESTIGATIONS, reviewed in the clinical context: September 26: D-dimer 1.06 CRP 5.4 September 25: D-dimer 1.57 CRP 1.9 September 24: D-dimer 0.95 CRP 3.2 Chest x-ray film personally reviewed by me-[September 24]: Scattered infiltrates September 23: White count 11.3 hemoglobin 13.1 and platelets 210 d-dimer 0.5 to CRP 5.0 WBC 6.4 hemoglobin 14.2 platelets 142 d-dimer 0.81 potassium 4.2 BUN 16 creatinine 0.70 CRP 16.8 Chest x-ray film personally reviewed by me-bilateral infiltrates Assessment and plan: -Acute bilateral COVID 19 pneumonitis. Received her first dose of vaccine in November. Had ALLERGIC reaction and did not get the second short period patient's symptoms have been present for about a week: Worsening Dexamethasone. IV Remdesivir completed. Started on IV Baricitinib -Acute hypoxic respiratory failure from COVID 19 pneumonitis.: Worsening Changed over to BiPAP. -Sepsis from COVID 19 pneumonitis IV fluids -Thrombocytopenia from COVID 19: Better Follow CBC -Acute medical debility from COVID 19. Dexamethasone 6 mg daily. IV Remdesivir-completed. BiPAP Incentive spirometry. Baricitinib started.. Lovenox scaled back to prophylactic dose by pulmonary.
--- NOTE | 2021-09-26 22:21 | PN ---
PROGRESS NOTE DATE OF SERVICE: 09/26/2021 REASON FOR FOLLOWUP: COVID-19 pneumonia. INTERVAL HISTORY: The patient is afebrile. The patient did have worsening of her respiratory status over the last 24 hours, has been started on BiPAP. Denies any chest pain or worsening cough. No vomiting. No abdominal pain or diarrhea. PHYSICAL EXAMINATION: Blood pressure 116/70 with a pulse of 80, temperature 98.3. She is 91% on BiPAP. General description is a middle-aged female up in the bed in no distress. RESPIRATORY SYSTEM: Unlabored breathing. Decreased intensity of breath sounds. No wheeze. HEART: S1, S2. Regular rate and rhythm. ABDOMEN: Soft. No tenderness. LABS: D-dimer is 1.06. LDH is 752. CRP is 5.40. DIAGNOSTIC IMPRESSION AND PLAN: Patient with acute respiratory failure secondary to COVID-19 pneumonia in this patient initially treated with remdesivir, dexamethasone, Lovenox. Did have overall worsening. She has been switched over to baricitinib; to continue with steroids and bronchodilators. Monitor clinical course closely. Continue supportive care. MMODL / IJN: [id number] /
[2021-09-27 08:20] LABS: Basophils % (A) 0 %; Eosinophils # (A) 0.2 k/uL (0-0.7); Eosinophils % (A) 1 %; HCT 42.2 % (34.0-46.0); HGB 13.5 gm/dL (11.4-16.0); Lymphocytes # (A) 1.1 k/uL (1.0-4.8); Lymphocytes % (A) 10 %; MCV 90.6 fL (80.0-100.0); Mean Platelet Volume 8.1; Monocytes # (A) 0.3 k/uL (0-1.0); Monocytes % (A) 3 %; Neutrophils # (A) 9.2 k/uL (1.3-7.7); Neutrophils % (A) 85 %; Platelet Count 331 k/uL (150-450); RBC 4.66 m/uL (3.80-5.40); RDW 13.2 % (11.5-15.5); WBC 10.9 k/uL (3.8-10.6)
[2021-09-27] MEDS: CHOLECALCIFEROL 25 MCG (1000 IU) TABLET PO SCH (09:13)
[2021-09-27] MEDS: dexAMETHasone 2 MG TAB PO SCH (09:13)
[2021-09-27] MEDS: ENOXAPARIN 40 MG/0.4 ML SYRINGE SQ SCH (09:13)
[2021-09-27] MEDS: ASCORBIC ACID 500 MG TAB PO SCH ×2 (09:13→20:50)
[2021-09-27] MEDS: ZINC SULFATE 220 MG CAP PO SCH (09:14)
[2021-09-27] MEDS: BARICITINIB 2 MG TABLET PO SCH (09:14)
[2021-09-27] MEDS: PSYLLIUM HUSK 100% 6 GM PACKET PO SCH (09:23)
[2021-09-27 11:16] LABS: African American GFR (CKD) >90 (>60 ml/min/1.73 sqM); Albumin 2.8 g/dL (3.5-5.0); Anion Gap 6 mmol/L; Blood Urea Nitrogen 23 mg/dL (7-17); Calcium 8.6 mg/dL (8.4-10.2); Carbon Dioxide 31 mmol/L (22-30); Chloride 100 mmol/L (98-107); Globulin 2.8 g/dL; Glucose 102 mg/dL (74-99); Non-African American GFR(CKD) >90 (>60 ml/min/1.73 sqM); Potassium 4.3 mmol/L (3.5-5.1); Sodium 137 mmol/L (137-145); Total Protein 5.6 g/dL (6.3-8.2)
[2021-09-27 11:17] LABS: ALT 60 U/L (4-34); AST 49 U/L (14-36); Alkaline Phosphatase 54 U/L (38-126); Total Bilirubin 0.6 mg/dL (0.2-1.3)
[2021-09-27 11:36] LABS: C Reactive Protein 15.5 mg/dL (<1.0)
--- NOTE | 2021-09-27 12:04 | P.PN ---
Subjective Progress Note Date: 09/27/21 Principal diagnosis: Coronavirus associated pneumonia COVID-19 pneumonia This is a 56-year-old female patient of Dr. Coffey with no significant medical history, who presented to the emergency department on 09/21/2021 for evaluation of worsening dyspnea, patient wears a apple Smart watch and when she checked her oxygen it was noted to be very low measuring 60-70%. She has been having a cough and a fever for about 1 week. She called her primary care doctor and was told to come into the emergency department. Patient denied any chest pain, patient was tested positive for COVID 19 5 days ago. No nausea or vomiting, no abdominal pain. Patient did have some diarrhea related to COVID-19 infection. Patient had her first COVID-19 injection back in November 2020 however she developed a reaction to it with development of a rash, lips tingling and hypertension and she did not receive her second COVID-19 injection. Chest x-ray in emergency department showed some patchy interstitial mild pneumonia. Admission showed white blood cell count of 6.4, hemoglobin 14.2, platelet count was 442, INR was 0.9, d-dimer 0.81, sodium was 134, potassium is 4.2, chloride was 96, CO2 is 27, BUN was 16, creatinine was 0.7, lactic acid was 1.4, ferritin level was 2674, AST was 178, ALT was 53, LDH was 3014, CRP was 16.8, pro calcitonin level was 0.17. CTA chest was obtained showing no evidence of pulmonary embolism, and extensive bilateral pneumonia. She was started on Decadron, prophylactic dose Lovenox 40 mg daily, and we were asked to see the patient in consultation COVID-19 pneumonia The patient is seen today 09/23/2021 in follow-up on the regular medical floor. She is currently sitting up at the bedside. Awake and alert in no acute distress. Doing about the same today as compared to yesterday. Routine O2 saturations at 90% on 6 L high flow nasal cannula. Afebrile. Hemodynamically stable. White count 11.3. Hemoglobin 13.1. D-dimer 0.52. C-reactive protein 5.0. Day #2 of Remdesivir. She is continued on Decadron 6 mg daily. Lovenox 40 mg daily. Vitamin supplements. The patient is seen today 09/24/2021 in follow-up on the regular medical floor. She is awake and alert in no acute distress. Sitting up in a chair at the bedside. Now requiring 9 L high flow nasal cannula to maintain O2 saturations in the low 90s. Chest x-ray continues to show significant bilateral groundglass opacities bilaterally. No pneumothorax or pleural effusion. D-dimer 0.95. LDH 2074. C-reactive protein 3.2. Trending down. This is day #3 of Remdesivir. She remains on Lovenox, Decadron, vitamin supplements. The patient is seen today 09/25/2021 in follow-up on the regular medical floor. She is currently sitting up in chair at the bedside. Awake and alert in no acute distress. Feeling a bit better today compared to yesterday. He is requiring 10 L high flow nasal cannula to maintain O2 saturations in the 90s. This is day #4 of Remdesivir. D-dimer 1.57. C-reactive protein 1.90. LDH 730. Improving. Continued on Decadron, Lovenox, vitamin supplements. Progress note dated 09/26/2021. The patient is again seen on the general medical floor, room 485. The patient's chest x-rays reviewed. Additional subcutaneous emphysema, pneumomediastinum, but no obvious pneumothorax. The patient was placed on BiPAP, and seems to be doing a lot better. Lab data today included a d-dimer of 1.06, and a C-reactive protein of 5.40. Chest x-ray shows diffuse bilateral infiltrates, with subcutaneous emphysema, and pneumomediastinum. The patient is currently on dexamethasone, Lovenox, and ALEXX. She has completed her REM today. Progress note dated 09/27/2021. 56-year-old female, seen again, and room 485. Currently, the patient is on BiPAP, with settings of IPAP 12, EPAP 6, and 100%. The patient is not receiving any IV fluids. Clinically, although she is on quite a bit of support, she looks reasonably well. She has a mild increase in her respiratory rate, but is not using any accessory muscles. White count is 10.9, hemoglobin 13.5, hematocrit 42.2, and platelet count 331,000. D-dimer is 1.55. Sodium, is normal, potassium 4.3, chlorides 100, CO2 31, anion gap 6, BUN 23, and creatinine 0.6. C-reactive protein is 15.5. The patient's chest x-ray shows diffuse bilateral infiltrates, subcutaneous emphysema, and pneumomediastinum. This is the x-ray that we reviewed from yesterday. Objective - Vital Signs Vital signs: Vital Signs Temp 99.5 F 09/27/21 09:55 Pulse 99 09/27/21 09:55 Resp 24 09/27/21 09:55 BP 117/76 09/27/21 09:55 Pulse Ox 88 L 09/27/21 09:55 Intake & Output 09/26/21 09/27/21 09/27/21 18:59 06:59 18:59 Other: # Voids 2 2 2 # Bowel Movements 0 - Exam No acute distress, oriented 3, Currently on BiPAP at 12/6, and 100%. HEENT examination is grossly unremarkable. Neck supple. Full range of motion. No adenopathy thyromegaly or neck vein distention. Cardiovascular examination reveals regular rhythm rate. S1-S2 normal. No S3 or S4. No discernible murmur noted. Heart sounds are distant. Heart rate 95 bpm. Lungs reveal bilateral rhonchi. No wheezes or crackles. Breath sounds equal. Saturations 94% on BiPAP. Abdomen soft bowel sounds are heard. No masses or tenderness. Extremities are intact. No cyanosis clubbing or edema. Skin is without rash or lesion. Neurologic examination is brief but nonfocal. - Labs CBC & Chem 7: 09/27/21 08:04 09/27/21 08:04 Labs: Abnormal Lab Results - Last 24 Hours (Table) 09/26/21 09/27/21 09/27/21 Range/Units 06:51 08:04 08:04 WBC (3.8-10.6) k/uL Neutrophils # (1.3-7.7) k/uL D-Dimer 1.55 H (<0.60) mg/L FEU Carbon Dioxide 31 H (22-30) mmol/L BUN 23 H (7-17) mg/dL Glucose 102 H (74-99) mg/dL AST 49 H (14-36) U/L ALT 60 H (4-34) U/L Lactate Dehydrogenase 752 H (120-246) U/L C-Reactive Protein 5.40 H 15.5 H (0.00-0.80) mg/dL Total Protein 5.6 L (6.3-8.2) g/dL Albumin 2.8 L (3.5-5.0) g/dL 09/27/21 Range/Units 08:04 WBC 10.9 H (3.8-10.6) k/uL Neutrophils # 9.2 H (1.3-7.7) k/uL D-Dimer (<0.60) mg/L FEU Carbon Dioxide (22-30) mmol/L BUN (7-17) mg/dL Glucose (74-99) mg/dL AST (14-36) U/L ALT (4-34) U/L Lactate Dehydrogenase (120-246) U/L C-Reactive Protein (0.00-0.80) mg/dL Total Protein (6.3-8.2) g/dL Albumin (3.5-5.0) g/dL Microbiology - Last 24 Hours (Table) 09/21/21 17:34 Blood Culture - Preliminary Blood No Growth after 120 hours 09/21/21 17:15 Blood Culture - Preliminary Blood No Growth after 120 hours Assessment and Plan Assessment: Acute hypoxemic respiratory failure secondary to coronavirus associated pneumonia. Status post incomplete coronavirus vaccination. Elevated inflammatory marker secondary to coronavirus infection. No evidence of pulmonary embolism on CT angiogram. Plan: Plan dated 09/26/2021. The patient's chest x-rays reviewed. There is no obvious pneumothorax. There was subcutaneous emphysema and pneumomediastinum. The patient was placed on BiPAP. Currently, she is very stable with a saturation of 96%. There is no reason to transfer this patient to the intensive care unit, as requested by the supervising nurse on the fourth floor. This was discussed earlier with the nurse taking care of the patient. We will continue to follow and make recommendations where appropriate. Should there be a change in the patient's clinical status, we can reevaluate the patient at that time. Plan dated 09/27/2021. The patient appears to be about the same today as she was yesterday. She remains on BiPAP at 12/6, and 100%. Saturations are in the low to mid 90s. Her chest x-ray was reviewed and showed evidence of subcutaneous emphysema, and pneumomediastinum, no pneumothorax. The patient's on appropriate medications. We will continue to follow make recommendations were appropriate. She remains on vitamin C, vitamin D3, and zinc. In addition, she is on Lovenox, Decadron, and ALEXX. Prognosis is guarded. Time with Patient: Less than 30
--- NOTE | 2021-09-27 13:00 | P.PN ---
Progress Note - Text Progress Note Date: 09/27/21 Chief Complaint: Short of breath This is a 56-year-old patient who follows with Dr. Coffey. Normally in good health. Was on taking any medications. Patient received off for short of posterior on it this year. Few minutes up to that she had developed a rash on the chest. Blood pressure was a bit high. Some tingling in the lips. There was no lip swelling no tongue swelling no choking no shortness of breath. Given this reaction she did not take the second dose of COVID shock. Patient for about a week has been getting progressively more short of breath. Having diarrhea for last 3 days. Everything tastes salty. Having. Slight headache. Has a dry cough. Her pulse ox at room has been off and on 84%. Poor appetite. Has been getting dizzy. She talk to her family doctor on videophone. He asked her to come in to the hospital. Patient tested positive for COVID 5 days ago. Tired and rundown. She been having some fevers. Admitted with COVID 19 pneumonitis, acute hypoxic respiratory failure. Started on dexamethasone, oxygen. IV fluids. 09/22/2021: Sitting up in a chair. Some shortness of breath. Did eat some. 91% on 3 L. Tired. Started on Remdesivir IV. Diarrhea present 09/23/2021: Up in a chair. Short of breath. FiO2 increased to 6 L. Tired. Diarrhea better. Eating about 50%. 09/24/2021: Up in a chair. Short of breath. Oral intake fair. Some cough. FiO2 increased to 9 L. No diarrhea. 09/25/2021: Up in a chair. Remains short of breath. Some cough. Decrease appetite. FiO2 increased to 10 L. D-dimer increasing. I increase the Lovenox to therapeutic dose. 80 mg subcu every 12. 09/26/2021: Up in a recliner. More short of breath. On Airvo 60 L and FiO2 90%. Similarly short of breath. Decrease appetite. Tired. Started on Baricitinib. Remdesivir completed. 09/27/2021: Remains short of breath. Tired. Decreased oral intake. Was placed on BiPAP yesterday. On Baricitinib. Ensure ordered. Subcu Lovenox cutback to prophylactic dose by pulmonary yesterday Review of systems: Was done for constitutional, cardiovascular, GI, pulmonary. relevant finding as above Active Medications Acetaminophen (Acetaminophen Tab 325 Mg Tab) 650 mg PO Q6HR PRN PRN Reason: Mild Pain or Fever > 100.5 Last Admin: 09/21/21 21:59 Dose: 650 mg Documented by: Al Hydroxide/Mg Hydroxide (Mag Hydrox/Al Hydrox/Simeth 30 Ml Cup) 15 ml PO Q6HR PRN PRN Reason: Indigestion Alprazolam (Alprazolam 0.25 Mg Tab) 0.25 mg PO Q6HR PRN PRN Reason: Anxiety Ascorbic Acid (Ascorbic Acid 500 Mg Tab) 500 mg PO BID [facility] Last Admin: 09/27/21 09:13 Dose: 500 mg Documented by: Baricitinib (Baricitinib 2 Mg Tablet) 4 mg PO DAILY [facility] Last Admin: 09/27/21 09:14 Dose: 4 mg Documented by: Calcium Carbonate/Glycine (Calcium Carbonate 500 Mg Chewable) 1,000 mg PO Q4HR PRN PRN Reason: Dyspepsia Cholecalciferol (Cholecalciferol 25 Mcg (1000 Iu) Tablet) 100 mcg PO DAILY [facility] Last Admin: 09/27/21 09:13 Dose: 100 mcg Documented by: Dexamethasone (Dexamethasone 2 Mg Tab) 6 mg PO DAILY [facility] Last Admin: 09/27/21 09:13 Dose: 6 mg Documented by: Enoxaparin Sodium (Enoxaparin 40 Mg/0.4 Ml Syringe) 40 mg SQ DAILY [facility] Last Admin: 09/27/21 09:13 Dose: 40 mg Documented by: Lactulose (Lactulose 20 Gm/30 Ml Cup) 20 gm PO DAILY PRN PRN Reason: Constipation Magnesium Hydroxide (Magnesium Hydroxide 2,400 Mg/10 Ml Cup) 2,400 mg PO DAILY PRN PRN Reason: Constipation Melatonin (Melatonin 3 Mg Tablet) 3 mg PO HS PRN PRN Reason: Insomnia Last Admin: 09/23/21 20:41 Dose: 3 mg Documented by: Naloxone HCl (Naloxone 0.4 Mg/Ml 1 Ml Vial) 0.2 mg IV Q2M PRN PRN Reason: Opioid Reversal Ondansetron HCl (Ondansetron 4 Mg/2 Ml Vial) 4 mg IVP Q8HR PRN PRN Reason: Nausea And Vomiting Psyllium Hydrophilic Mucilloid (Psyllium Husk 100% 6 Gm Packet) 6 gm PO DAILY [facility] Last Admin: 09/27/21 09:23 Dose: Not Given Documented by: Zinc Sulfate (Zinc Sulfate 220 Mg Cap) 220 mg PO DAILY [facility] Last Admin: 09/27/21 09:14 Dose: 220 mg Documented by: Past medical history: Unremarkable Social history: Does not smoke or drink alcohol. . 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 Family history: Reviewed, noncontributory to presentation Physical examination: VITAL SIGNS: 99.5, 99, 24, 170s/76, 88% on BiPAP/100% GENERAL: Reclining in bed, tired, short of breath LUNGS: Respiratory rate increased, . PSYCH: Alert and oriented x3; mood and affect tired NEUROLOGICAL: Cranial nerves grossly intact; no facial asymmetry, moving all her limbs Rest of the exam per pulmonary, nursing INVESTIGATIONS, reviewed in the clinical context: September 27:: 10.9 d-dimer 1.55 potassium 4.3 creatinine 0.60 September 26: D-dimer 1.06 CRP 5.4 September 25: D-dimer 1.57 CRP 1.9 September 24: D-dimer 0.95 CRP 3.2 Chest x-ray film personally reviewed by me-[September 24]: Scattered infiltrates September 23: White count 11.3 hemoglobin 13.1 and platelets 210 d-dimer 0.5 to CRP 5.0 WBC 6.4 hemoglobin 14.2 platelets 142 d-dimer 0.81 potassium 4.2 BUN 16 creatinine 0.70 CRP 16.8 Chest x-ray film personally reviewed by me-bilateral infiltrates Assessment and plan: -Acute bilateral COVID 19 pneumonitis. Received her first dose of vaccine in November. Had ALLERGIC reaction and did not get the second short period patient's symptoms have been present for about a week: Worsening Dexamethasone. IV Remdesivir completed. IV Baricitinib -Acute hypoxic respiratory failure from COVID 19 pneumonitis.: Worsening 100% BiPAP. -Sepsis from COVID 19 pneumonitis IV fluids -Thrombocytopenia from COVID 19: Better Follow CBC -Acute medical debility from COVID 19. -Possible mild COVID-19 hepatitis Dexamethasone 6 mg daily. IV Remdesivir-completed. BiPAP Incentive spirometry. Baricitinib
--- NOTE | 2021-09-27 22:26 | PN ---
PROGRESS NOTE DATE OF SERVICE: 09/27/2021 REASON FOR FOLLOWUP: COVID-19 pneumonia. INTERVAL HISTORY: The patient is afebrile. The patient is currently BiPAP-dependent. The patient is hemodynamically stable, though. No chest pain. No worsening cough. No abdominal pain or diarrhea. PHYSICAL EXAMINATION: Blood pressure 120/65, pulse of 69, temperature 98.5. She is 94% on BiPAP. General description is a middle-aged female up in bed in no distress. RESPIRATORY SYSTEM: Unlabored breathing. Coarse breath sounds bilaterally. No wheeze. HEART: S1, S2. Regular rate and rhythm. ABDOMEN: Soft. No tenderness. EXTREMITIES: No edema of the feet. LABS: Hemoglobin is 13.5, white count 10.9, BUN of 23, creatinine 0.60. DIAGNOSTIC IMPRESSION AND PLAN: Patient with acute respiratory failure which is secondary to COVID-19 infection in this patient who did have slight worsening. Patient is covered with baricitinib, Lovenox, dexamethasone, zinc and ascorbic acid. That will continue along with respiratory support and monitor clinical course closely. MMODL / IJN: [id number] /
[2021-09-28] MEDS: BARICITINIB 2 MG TABLET PO SCH (08:23)
[2021-09-28] MEDS: ZINC SULFATE 220 MG CAP PO SCH (08:24)
[2021-09-28] MEDS: ENOXAPARIN 40 MG/0.4 ML SYRINGE SQ SCH (08:24)
[2021-09-28] MEDS: CHOLECALCIFEROL 25 MCG (1000 IU) TABLET PO SCH (08:24)
[2021-09-28] MEDS: ASCORBIC ACID 500 MG TAB PO SCH ×2 (08:24→20:37)
[2021-09-28] MEDS: dexAMETHasone 2 MG TAB PO SCH (08:24)
[2021-09-28] MEDS: PSYLLIUM HUSK 100% 6 GM PACKET PO SCH (08:24)
[2021-09-28 08:32] LABS: Basophils % (A) 0 %; Eosinophils # (A) 0.2 k/uL (0-0.7); Eosinophils % (A) 2 %; HCT 43.4 % (34.0-46.0); HGB 13.7 gm/dL (11.4-16.0); Lymphocytes % (A) 8 %; MCH 28.8 pg (25.0-35.0); MCHC 31.7 g/dL (31.0-37.0); MCV 90.9 fL (80.0-100.0); Mean Platelet Volume 8.1; Monocytes # (A) 0.4 k/uL (0-1.0); Monocytes % (A) 4 %; Neutrophils # (A) 10.4 k/uL (1.3-7.7); Neutrophils % (A) 86 %; Platelet Count 342 k/uL (150-450); RBC 4.77 m/uL (3.80-5.40); RDW 13.1 % (11.5-15.5); WBC 12.1 k/uL (3.8-10.6)
[2021-09-28 09:09] LABS: ALT 46 U/L (4-34); AST 44 U/L (14-36); African American GFR (CKD) >90 (>60 ml/min/1.73 sqM); Albumin 2.9 g/dL (3.5-5.0); Alkaline Phosphatase 58 U/L (38-126); Anion Gap 6 mmol/L; Blood Urea Nitrogen 23 mg/dL (7-17); Calcium 9.1 mg/dL (8.4-10.2); Carbon Dioxide 31 mmol/L (22-30); Chloride 101 mmol/L (98-107); Globulin 2.9 g/dL; Glucose 149 mg/dL (74-99); Non-African American GFR(CKD) >90 (>60 ml/min/1.73 sqM); Potassium 4.1 mmol/L (3.5-5.1); Sodium 138 mmol/L (137-145); Total Bilirubin 0.7 mg/dL (0.2-1.3); Total Protein 5.8 g/dL (6.3-8.2)
--- NOTE | 2021-09-28 13:37 | P.PN ---
Subjective Progress Note Date: 09/28/21 Principal diagnosis: COVID-19 pneumonia This is a 56-year-old female patient of Dr. Coffey with no significant medical history, who presented to the emergency department on 09/21/2021 for evaluation of worsening dyspnea, patient wears a apple Smart watch and when she checked her oxygen it was noted to be very low measuring 60-70%. She has been having a cough and a fever for about 1 week. She called her primary care doctor and was told to come into the emergency department. Patient denied any chest pain, patient was tested positive for COVID 19 5 days ago. No nausea or vomiting, no abdominal pain. Patient did have some diarrhea related to COVID-19 infection. Patient had her first COVID-19 injection back in November 2020 however she developed a reaction to it with development of a rash, lips tingling and hypertension and she did not receive her second COVID-19 injection. Chest x-ray in emergency department showed some patchy interstitial mild pneumonia. Admissi on showed white blood cell count of 6.4, hemoglobin 14.2, platelet count was 442, INR was 0.9, d-dimer 0.81, sodium was 134, potassium is 4.2, chloride was 96, CO2 is 27, BUN was 16, creatinine was 0.7, lactic acid was 1.4, ferritin level was 2674, AST was 178, ALT was 53, LDH was 3014, CRP was 16.8, pro calcitonin level was 0.17. CTA chest was obtained showing no evidence of pulmonary embolism, and extensive bilateral pneumonia. She was started on Decadron, prophylactic dose Lovenox 40 mg daily, and we were asked to see the patient in consultation COVID-19 pneumonia The patient is seen today 09/23/2021 in follow-up on the regular medical floor. She is currently sitting up at the bedside. Awake and alert in no acute distress. Doing about the same today as compared to yesterday. Routine O2 saturations at 90% on 6 L high flow nasal cannula. Afebrile. Hemodynamically stable. White count 11.3. Hemoglobin 13.1. D-dimer 0.52. C-reactive protein 5.0. Day #2 of Remdesivir. She is continued on Decadron 6 mg daily. Lovenox 40 mg daily. Vitamin supplements. The patient is seen today 09/24/2021 in follow-up on the regular medical floor. She is awake and alert in no acute distress. Sitting up in a chair at the bedside. Now requiring 9 L high flow nasal cannula to maintain O2 saturations in the low 90s. Chest x-ray continues to show significant bilateral groundglass opacities bilaterally. No pneumothorax or pleural effusion. D-dimer 0.95. LDH 2074. C-reactive protein 3.2. Trending down. This is day #3 of Remdesivir. She remains on Lovenox, Decadron, vitamin supplements. The patient is seen today 09/25/2021 in follow-up on the regular medical floor. She is currently sitting up in chair at the bedside. Awake and alert in no acute distress. Feeling a bit better today compared to yesterday. He is requiring 10 L high flow nasal cannula to maintain O2 saturations in the 90s. This is day #4 of Remdesivir. D-dimer 1.57. C-reactive protein 1.90. LDH 730. Improving. Continued on Decadron, Lovenox, vitamin supplements. The patient is seen today 09/28/2021 in follow-up on the regular medical floor. She is currently resting fairly comfortably in bed. She is on BiPAP 12/6 in the 100% FiO2 to maintain O2 saturations in the 90s. She's currently afebrile. Hemodynamically stable. White count 12.1. Hemoglobin 13.7. D-dimer 7.05. Sodium was 30. Potassium 4.1. Creatinine 0.58. Glucose 149. AST 44. ALT 46. C-reactive protein 15.0. She remains on Baricitinib, Decadron, Lovenox, vitamin supplements. Objective - Vital Signs Vital signs: Vital Signs Temp 98.7 F 09/28/21 10:00 Pulse 89 09/28/21 10:00 Resp 18 09/28/21 10:00 BP 115/81 09/28/21 10:00 Pulse Ox 94 L 09/28/21 10:00 Intake & Output 09/27/21 09/28/21 09/28/21 18:59 06:59 18:59 Intake Total 118 Balance 118 Intake: Oral 118 Other: # Voids 2 1 2 - Exam GENERAL EXAM: Alert, pleasant 56-year-old female patient, on BiPAP 12/6 and 100% FiO2, in mild respiratory distress. HEAD: Normocephalic. EYES: Normal reaction of pupils, equal size. NOSE: Clear with pink turbinates. THROAT: No erythema or exudates. NECK: No masses, no JVD. CHEST: No chest wall deformity. LUNGS: Equal air entry with crackles in bilateral bases. CVS: S1 and S2 normal with no audible murmur, regular rhythm. ABDOMEN: No hepatosplenomegaly, normal bowel sounds, no guarding or rigidity. SPINE: No scoliosis or deformity SKIN: No rashes CENTRAL NERVOUS SYSTEM: No focal deficits, tone is normal in all 4 extremities. EXTREMITIES: There is no peripheral edema. No clubbing, no cyanosis. Peripheral pulses are intact. - Labs CBC & Chem 7: 09/28/21 08:00 09/28/21 08:00 Labs: Abnormal Lab Results - Last 24 Hours (Table) 09/28/21 09/28/21 09/28/21 Range/Units 08:00 08:00 08:00 WBC 12.1 H (3.8-10.6) k/uL Neutrophils # 10.4 H (1.3-7.7) k/uL D-Dimer 7.05 H (<0.60) mg/L FEU Carbon Dioxide (22-30) mmol/L BUN (7-17) mg/dL Glucose (74-99) mg/dL AST (14-36) U/L ALT (4-34) U/L C-Reactive Protein 15.0 H (<1.0) mg/dL Total Protein (6.3-8.2) g/dL Albumin (3.5-5.0) g/dL 09/28/21 Range/Units 08:00 WBC (3.8-10.6) k/uL Neutrophils # (1.3-7.7) k/uL D-Dimer (<0.60) mg/L FEU Carbon Dioxide 31 H (22-30) mmol/L BUN 23 H (7-17) mg/dL Glucose 149 H (74-99) mg/dL AST 44 H (14-36) U/L ALT 46 H (4-34) U/L C-Reactive Protein (<1.0) mg/dL Total Protein 5.8 L (6.3-8.2) g/dL Albumin 2.9 L (3.5-5.0) g/dL Microbiology - Last 24 Hours (Table) 09/21/21 17:34 Blood Culture - Final Blood No Growth after 144 hours 09/21/21 17:15 Blood Culture - Final Blood No Growth after 144 hours Assessment and Plan Assessment: 1 Acute hypoxic respiratory failure related to acute COVID-19 pneumonia, with onset of symptoms within 1 week of presentation to the emergency department. Remdesivir started on 09/22/2021, and increased oxygen requirements and she was initiated on Baricitinib 09/26/2021 2 Incomplete COVID-19 vaccination, patient received 1 dose of COVID-19 vaccine in November 2020, developed a reaction with skin rash, hypertension, and tingling lips, and did not complete her second injection 3 Elevated inflammatory markers related to acute viral pneumonia 4 Elevated d-dimer without evidence of pulmonary embolism on CT angiogram Plan: The patient was seen and evaluated by Dr. Suazo D-dimer elevated to 7.[address] angiogram Completed Remdesivir Continue on Baricitinib, Lovenox, Decadron, vitamin supplements Titrate the FiO2 as tolerated We will continue to follow I, the cosigning physician, performed a history & physical examination of the patient. Lungs sounds coarse crackles in the bilateral bases. Maintaining good O2 saturations in the 90s on BiPAP 12/6 and 100% FiO2. I discussed the assessment and plan of care with my nurse practitioner, Pat Wong. I attest to the above note as dictated by her.
[2021-09-28 14:51] VITALS: BMI 32.2
--- NOTE | 2021-09-28 15:01 | CT ---
CT CHEST FOR PULMONARY EMBOLISM. EXAMINATION TYPE: CT angio chest DATE OF EXAM: 09/28/2021 INDICATION: Elevated d-dimer, hypoxemia. CT DLP: 361.8 mGycm, Automated exposure control for dose reduction was used. CONTRAST: Patient injected with 100 mL of Isovue 370. COMPARISON: 09/21/2021 TECHNIQUE: CT of the chest is performed on a spiral scan at 2 mm thick sections. Study is performed with intravenous contrast timed for evaluation for pulmonary embolism. This will limit additional po rtions of the evaluation. 3-D MIP images reconstructed by the technologist are reviewed on the compu ter in the coronal and sagittal planes. FINDINGS: No persistent filling defects are evident to suggest an acute pulmonary embolism. There is a pneumomediastinum. Subcutaneous air is present on the left. No mediastinal or hilar adenopathy enlarged by CT criteria is evident. The ascending aorta diameter at the level of the main pulmonary artery is 3.2 cm. The main pulmonary artery diameter at the bifur cation is 2.6 cm. There are bilateral lung consolidations. Findings are nonspecific. Correlate for pneumonia and atypic al pneumonia. Findings are worsening from comparison Limited CT section through the upper abdomen. Mild fatty infiltration is within the liver. IMPRESSIONS: 1. No acute pulmonary embolus. 2. Pneumomediastinum. Left chest wall subcutaneous emphysema is also present. 3. Diffuse increased consolidations throughout the bilateral lungs worsening from comparison can be c ompatible with atypical pneumonia. A [place] critical message alert has been initiated for Kris Xiao MD via the [employer] Critical Results System on 09/28/2021 2:59 PM. This message alert has been sent to Kris Xiao MD via the preferences provided by the clinician for the receipt of Radiology Critical Findings. Message ID [id number].
--- NOTE | 2021-09-28 20:23 | P.PN ---
Progress Note - Text Progress Note Date: 09/28/21 Chief Complaint: Short of breath This is a 56-year-old patient who follows with Dr. Coffey. Normally in good health. Was on taking any medications. Patient received off for short of posterior on it this year. Few minutes up to that she had developed a rash on the chest. Blood pressure was a bit high. Some tingling in the lips. There was no lip swelling no tongue swelling no choking no shortness of breath. Given this reaction she did not take the second dose of COVID shock. Patient for about a week has been getting progressively more short of breath. Having diarrhea for last 3 days. Everything tastes salty. Having. Slight headache. Has a dry cough. Her pulse ox at room has been off and on 84%. Poor appetite. Has been getting dizzy. She talk to her family doctor on videophone. He asked her to come in to the hospital. Patient tested positive for COVID 5 days ago. Tired and rundown. She been having some fevers. Admitted with COVID 19 pneumonitis, acute hypoxic respiratory failure. Started on dexamethasone, oxygen. IV fluids. 09/22/2021: Sitting up in a chair. Some shortness of breath. Did eat some. 91% on 3 L. Tired. Started on Remdesivir IV. Diarrhea present 09/23/2021: Up in a chair. Short of breath. FiO2 increased to 6 L. Tired. Diarrhea better. Eating about 50%. 09/24/2021: Up in a chair. Short of breath. Oral intake fair. Some cough. FiO2 increased to 9 L. No diarrhea. 09/25/2021: Up in a chair. Remains short of breath. Some cough. Decrease appetite. FiO2 increased to 10 L. D-dimer increasing. I increase the Lovenox to therapeutic dose. 80 mg subcu every 12. 09/26/2021: Up in a recliner. More short of breath. On Airvo 60 L and FiO2 90%. Similarly short of breath. Decrease appetite. Tired. Started on Baricitinib. Remdesivir completed. 09/27/2021: Remains short of breath. Tired. Decreased oral intake. Was placed on BiPAP yesterday. On Baricitinib. Ensure ordered. Subcu Lovenox cutback to prophylactic dose by pulmonary yesterday 09/28/2021: Short of breath. Diet. BiPAP. 10/31. On 100% FiO2. Oral intake fluctuating. Review of systems: Was done for constitutional, cardiovascular, GI, pulmonary. relevant finding as above Active Medications Acetaminophen (Acetaminophen Tab 325 Mg Tab) 650 mg PO Q6HR PRN PRN Reason: Mild Pain or Fever > 100.5 Last Admin: 09/21/21 21:59 Dose: 650 mg Documented by: Al Hydroxide/Mg Hydroxide (Mag Hydrox/Al Hydrox/Simeth 30 Ml Cup) 15 ml PO Q6HR PRN PRN Reason: Indigestion Alprazolam (Alprazolam 0.25 Mg Tab) 0.25 mg PO Q6HR PRN PRN Reason: Anxiety Ascorbic Acid (Ascorbic Acid 500 Mg Tab) 500 mg PO BID [facility] Last Admin: 09/28/21 08:24 Dose: 500 mg Documented by: Baricitinib (Baricitinib 2 Mg Tablet) 4 mg PO DAILY [facility] Last Admin: 09/28/21 08:23 Dose: 4 mg Documented by: Calcium Carbonate/Glycine (Calcium Carbonate 500 Mg Chewable) 1,000 mg PO Q4HR PRN PRN Reason: Dyspepsia Cholecalciferol (Cholecalciferol 25 Mcg (1000 Iu) Tablet) 100 mcg PO DAILY [facility] Last Admin: 09/28/21 08:24 Dose: 100 mcg Documented by: Dexamethasone Sodium Phosphate (Dexamethasone Sod Phosphate 10 Mg/Ml 1 Ml Vial) 6 mg IVP BID [facility] Enoxaparin Sodium (Enoxaparin 40 Mg/0.4 Ml Syringe) 40 mg SQ DAILY [facility] Last Admin: 09/28/21 08:24 Dose: 40 mg Documented by: Lactulose (Lactulose 20 Gm/30 Ml Cup) 20 gm PO DAILY PRN PRN Reason: Constipation Magnesium Hydroxide (Magnesium Hydroxide 2,400 Mg/10 Ml Cup) 2,400 mg PO DAILY PRN PRN Reason: Constipation Melatonin (Melatonin 3 Mg Tablet) 3 mg PO HS PRN PRN Reason: Insomnia Last Admin: 09/23/21 20:41 Dose: 3 mg Documented by: Naloxone HCl (Naloxone 0.4 Mg/Ml 1 Ml Vial) 0.2 mg IV Q2M PRN PRN Reason: Opioid Reversal Ondansetron HCl (Ondansetron 4 Mg/2 Ml Vial) 4 mg IVP Q8HR PRN PRN Reason: Nausea And Vomiting Psyllium Hydrophilic Mucilloid (Psyllium Husk 100% 6 Gm Packet) 6 gm PO DAILY [facility] Last Admin: 09/28/21 08:24 Dose: Not Given Documented by: Zinc Sulfate (Zinc Sulfate 220 Mg Cap) 220 mg PO DAILY [facility] Last Admin: 09/28/21 08:24 Dose: 220 mg Documented by: Past medical history: Unremarkable Social history: Does not smoke or drink alcohol. . 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 Family history: Reviewed, noncontributory to presentation Physical examination: VITAL SIGNS: 98, 85, 16, 127/84, 97% on BiPAP at 100% GENERAL: Reclining in bed, tired, short of breath LUNGS: Respiratory rate increased, . PSYCH: Alert and oriented x3; mood and affect tired NEUROLOGICAL: Cranial nerves grossly intact; no facial asymmetry, moving all her limbs Rest of the exam per pulmonary, nursing INVESTIGATIONS, reviewed in the clinical context: September 28: WBC 12.1 hemoglobin 13.7 d-dimer 7.05 potassium 4.1 creatinine 0.58 CRP 15 September 27:: 10.9 d-dimer 1.55 potassium 4.3 creatinine 0.60 September 26: D-dimer 1.06 CRP 5.4 September 25: D-dimer 1.57 CRP 1.9 September 24: D-dimer 0.95 CRP 3.2 Chest x-ray film personally reviewed by me-[September 24]: Scattered infiltrates September 23: White count 11.3 hemoglobin 13.1 and platelets 210 d-dimer 0.5 to CRP 5.0 WBC 6.4 hemoglobin 14.2 platelets 142 d-dimer 0.81 potassium 4.2 BUN 16 creatinine 0.70 CRP 16.8 Chest x-ray film personally reviewed by me-bilateral infiltrates Assessment and plan: -Acute bilateral COVID 19 pneumonitis. Received her first dose of vaccine in November. Had ALLERGIC reaction and did not get the second short period patient's symptoms have been present for about a week: Not improving Dexamethasone. IV Remdesivir completed. IV Baricitinib -Acute hypoxic respiratory failure from COVID 19 pneumonitis.: Not improving 100% BiPAP. -Sepsis from COVID 19 pneumonitis IV fluids -Thrombocytopenia from COVID 19: Better Follow CBC -Acute medical debility from COVID 19. -Possible mild COVID-19 hepatitis Dexamethasone 6 mg daily. IV Remdesivir-completed. BiPAP Incentive spirometry. Baricitinib . Lovenox dose as per pulmonary.
[2021-09-28] MEDS: DEXAMETHASONE SOD PHOSPHATE 10 MG/ML 1 ML VIAL IVP SCH (20:37)
--- NOTE | 2021-09-29 00:01 | PN ---
PROGRESS NOTE DATE OF SERVICE: 09/28/2021. REASON FOR FOLLOW UP: Covid 19 pneumonia. INTERVAL HISTORY: Patient is afebrile. The patient remains to be BiPAP dependent. The patient denies having any chest pain. She did have a cough, not bringing up any sputum. No vomiting. No abdominal pain or diarrhea. PHYSICAL EXAMINATION: Blood pressure is 119/75, pulse of 75. Temperature is 97.9. She is 95% on BiPAP. General description is a middle-aged female lying in bed in no distress. Respiratory system: Unlabored breathing, decreased intensity of breath sounds. No wheeze. Heart S1, S2. Regular rate and rhythm. Abdomen soft, no tenderness. LABS: Hemoglobin is 13.7, white count 12.1, creatinine 0.58. DIAGNOSTIC IMPRESSION AND PLAN: Patient with acute COVID-19 pneumonia in this patient currently covered with baricitinib, dexamethasone, Lovenox, zinc, ascorbic acid along with respiratory support and monitor clinical course closely. MMODL / IJN: [id number] /
[2021-09-29 06:57] LABS: Basophils % (A) 0 %; Eosinophils % (A) 0 %; HCT 41.6 % (34.0-46.0); HGB 13.1 gm/dL (11.4-16.0); Lymphocytes # (A) 0.8 k/uL (1.0-4.8); Lymphocytes % (A) 6 %; MCH 28.7 pg (25.0-35.0); MCHC 31.5 g/dL (31.0-37.0); MCV 91.1 fL (80.0-100.0); Monocytes # (A) 0.5 k/uL (0-1.0); Monocytes % (A) 4 %; Neutrophils # (A) 11.3 k/uL (1.3-7.7); Neutrophils % (A) 89 %; Platelet Count 348 k/uL (150-450); RBC 4.57 m/uL (3.80-5.40); RDW 13.2 % (11.5-15.5); WBC 12.7 k/uL (3.8-10.6)
[2021-09-29 07:09] LABS: ALT 46 U/L (4-34); AST 36 U/L (14-36); African American GFR (CKD) >90 (>60 ml/min/1.73 sqM); Albumin 2.9 g/dL (3.5-5.0); Alkaline Phosphatase 59 U/L (38-126); Anion Gap 5 mmol/L; Blood Urea Nitrogen 21 mg/dL (7-17); Calcium 9.1 mg/dL (8.4-10.2); Carbon Dioxide 30 mmol/L (22-30); Chloride 100 mmol/L (98-107); Glucose 145 mg/dL (74-99); LDH 1541 U/L (313-618); Non-African American GFR(CKD) >90 (>60 ml/min/1.73 sqM); Potassium 4.6 mmol/L (3.5-5.1); Sodium 135 mmol/L (137-145); Total Bilirubin 0.6 mg/dL (0.2-1.3); Total Protein 5.9 g/dL (6.3-8.2)
[2021-09-29] MEDS: ASCORBIC ACID 500 MG TAB PO SCH ×2 (07:53→20:33)
[2021-09-29] MEDS: CHOLECALCIFEROL 25 MCG (1000 IU) TABLET PO SCH (07:53)
[2021-09-29] MEDS: ZINC SULFATE 220 MG CAP PO SCH (07:53)
[2021-09-29] MEDS: PSYLLIUM HUSK 100% 6 GM PACKET PO SCH (07:53)
[2021-09-29] MEDS: DEXAMETHASONE SOD PHOSPHATE 10 MG/ML 1 ML VIAL IVP SCH ×2 (07:53→20:33)
[2021-09-29] MEDS: ENOXAPARIN 40 MG/0.4 ML SYRINGE SQ SCH (07:54)
[2021-09-29] MEDS: BARICITINIB 2 MG TABLET PO SCH (07:55)
[2021-09-29 08:11] LABS: C Reactive Protein 5.7 mg/dL (<1.0)
--- NOTE | 2021-09-29 10:55 | XR ---
EXAMINATION TYPE: XR chest 1V DATE OF EXAM: 09/29/2021 COMPARISON: 09/26/2021 HISTORY: Cough TECHNIQUE: Single frontal view of the chest is obtained. FINDINGS: Bilateral interstitial infiltrates are again noted. There is pneumopericardium, pneumomedi astinum, and subcutaneous emphysema. No sizable pleural effusion. Heart size stable. IMPRESSION: 1. Stable diffuse bilateral infiltrates with stable appearing pneumomediastinum, pneumopericardium.
--- NOTE | 2021-09-29 13:19 | P.PN ---
Progress Note - Text Progress Note Date: 09/29/21 Chief Complaint: Short of breath This is a 56-year-old patient who follows with Dr. Coffey. Normally in good health. Was on taking any medications. Patient received off for short of posterior on it this year. Few minutes up to that she had developed a rash on the chest. Blood pressure was a bit high. Some tingling in the lips. There was no lip swelling no tongue swelling no choking no shortness of breath. Given this reaction she did not take the second dose of COVID shock. Patient for about a week has been getting progressively more short of breath. Having diarrhea for last 3 days. Everything tastes salty. Having. Slight headache. Has a dry cough. Her pulse ox at room has been off and on 84%. Poor appetite. Has been getting dizzy. She talk to her family doctor on videophone. He asked her to come in to the hospital. Patient tested positive for COVID 5 days ago. Tired and rundown. She been having some fevers. Admitted with COVID 19 pneumonitis, acute hypoxic respiratory failure. Started on dexamethasone, oxygen. IV fluids. 09/22/2021: Sitting up in a chair. Some shortness of breath. Did eat some. 91% on 3 L. Tired. Started on Remdesivir IV. Diarrhea present 09/23/2021: Up in a chair. Short of breath. FiO2 increased to 6 L. Tired. Diarrhea better. Eating about 50%. 09/24/2021: Up in a chair. Short of breath. Oral intake fair. Some cough. FiO2 increased to 9 L. No diarrhea. 09/25/2021: Up in a chair. Remains short of breath. Some cough. Decrease appetite. FiO2 increased to 10 L. D-dimer increasing. I increase the Lovenox to therapeutic dose. 80 mg subcu every 12. 09/26/2021: Up in a recliner. More short of breath. On Airvo 60 L and FiO2 90%. Similarly short of breath. Decrease appetite. Tired. Started on Baricitinib. Remdesivir completed. 09/27/2021: Remains short of breath. Tired. Decreased oral intake. Was placed on BiPAP yesterday. On Baricitinib. Ensure ordered. Subcu Lovenox cutback to prophylactic dose by pulmonary yesterday 09/28/2021: Short of breath. Diet. BiPAP. 10/31. On 100% FiO2. Oral intake fluctuating. 09/29/2021: Remains short of breath. Changed over to Airvo. On 60 L and 90% FiO2. Decreased oral intake. Up in a recliner. Pneumomediastinum per chest x-ray/computed tomography scan. Review of systems: Was done for constitutional, cardiovascular, GI, pulmonary. relevant finding as above Active Medications Acetaminophen (Acetaminophen Tab 325 Mg Tab) 650 mg PO Q6HR PRN PRN Reason: Mild Pain or Fever > 100.5 Last Admin: 09/21/21 21:59 Dose: 650 mg Documented by: Al Hydroxide/Mg Hydroxide (Mag Hydrox/Al Hydrox/Simeth 30 Ml Cup) 15 ml PO Q6HR PRN PRN Reason: Indigestion Alprazolam (Alprazolam 0.25 Mg Tab) 0.25 mg PO Q6HR PRN PRN Reason: Anxiety Ascorbic Acid (Ascorbic Acid 500 Mg Tab) 500 mg PO BID [facility] Last Admin: 09/29/21 07:53 Dose: 500 mg Documented by: Baricitinib (Baricitinib 2 Mg Tablet) 4 mg PO DAILY [facility] Stop: 10/09/21 09:59 Last Admin: 09/29/21 07:55 Dose: 4 mg Documented by: Calcium Carbonate/Glycine (Calcium Carbonate 500 Mg Chewable) 1,000 mg PO Q4HR PRN PRN Reason: Dyspepsia Cholecalciferol (Cholecalciferol 25 Mcg (1000 Iu) Tablet) 100 mcg PO DAILY [facility] Last Admin: 09/29/21 07:53 Dose: 100 mcg Documented by: Dexamethasone Sodium Phosphate (Dexamethasone Sod Phosphate 10 Mg/Ml 1 Ml Vial) 6 mg IVP BID [facility] Last Admin: 09/29/21 07:53 Dose: 6 mg Documented by: Enoxaparin Sodium (Enoxaparin 40 Mg/0.4 Ml Syringe) 40 mg SQ DAILY [facility] Last Admin: 09/29/21 07:54 Dose: 40 mg Documented by: Lactulose (Lactulose 20 Gm/30 Ml Cup) 20 gm PO DAILY PRN PRN Reason: Constipation Magnesium Hydroxide (Magnesium Hydroxide 2,400 Mg/10 Ml Cup) 2,400 mg PO DAILY PRN PRN Reason: Constipation Melatonin (Melatonin 3 Mg Tablet) 3 mg PO HS PRN PRN Reason: Insomnia Last Admin: 09/23/21 20:41 Dose: 3 mg Documented by: Naloxone HCl (Naloxone 0.4 Mg/Ml 1 Ml Vial) 0.2 mg IV Q2M PRN PRN Reason: Opioid Reversal Ondansetron HCl (Ondansetron 4 Mg/2 Ml Vial) 4 mg IVP Q8HR PRN PRN Reason: Nausea And Vomiting Psyllium Hydrophilic Mucilloid (Psyllium Husk 100% 6 Gm Packet) 6 gm PO DAILY [facility] Last Admin: 09/29/21 07:53 Dose: 6 gm Documented by: Zinc Sulfate (Zinc Sulfate 220 Mg Cap) 220 mg PO DAILY [facility] Last Admin: 09/29/21 07:53 Dose: 220 mg Documented by: Past medical history: Unremarkable Social history: Does not smoke or drink alcohol. . 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 Family history: Reviewed, noncontributory to presentation Physical examination: VITAL SIGNS: 98.1, 91, 18, 1 24 x 65, 91% on Airvo at 60 L/m and 90% FiO2 GENERAL: Reclining in recliner, tired, short of breath LUNGS: Respiratory rate increased, . PSYCH: Alert and oriented x3; mood and affect tired NEUROLOGICAL: Cranial nerves grossly intact; no facial asymmetry, moving all her limbs Rest of the exam per pulmonary, nursing INVESTIGATIONS, reviewed in the clinical context: September 29: WBC 12.7 hemoglobin 13.1 d-dimer 5.8 potassium 4.6 creatinine 0[address] chest [September 28]: Infiltrates, pneumomediastinum September 28: WBC 12.1 hemoglobin 13.7 d-dimer 7.05 potassium 4.1 creatinine 0.58 CRP 15 September 27:: 10.9 d-dimer 1.55 potassium 4.3 creatinine 0.60 September 26: D-dimer 1.06 CRP 5.4 September 25: D-dimer 1.57 CRP 1.9 September 24: D-dimer 0.95 CRP 3.2 Chest x-ray film personally reviewed by me-[September 24]: Scattered infiltrates September 23: White count 11.3 hemoglobin 13.1 and platelets 210 d-dimer 0.5 to CRP 5.0 WBC 6.4 hemoglobin 14.2 platelets 142 d-dimer 0.81 potassium 4.2 BUN 16 creatinine 0.70 CRP 16.8 Chest x-ray film personally reviewed by me-bilateral infiltrates Assessment and plan: -Acute bilateral COVID 19 pneumonitis. Received her first dose of vaccine in November. Had ALLERGIC reaction and did not get the second short period patient's symptoms have been present for about a week: Not improving Dexamethasone. IV Remdesivir completed. IV Baricitinib -Acute hypoxic respiratory failure from COVID 19 pneumonitis.: Not improving On Airvo 60/90 -Pneumomediastinum Being followed by pulmonary -Sepsis from COVID 19 pneumonitis IV fluids -Thrombocytopenia from COVID 19: Better Follow CBC -Acute medical debility from COVID 19. -Possible mild COVID-19 hepatitis Dexamethasone 6 mg twice a day, increased by pulmonary yesterday IV Remdesivir- completed. Airvo Incentive spirometry. Baricitinib . Lovenox dose as per pulmonary.
--- NOTE | 2021-09-29 14:40 | P.PN ---
Subjective Progress Note Date: 09/29/21 Principal diagnosis: Coronavirus associated pneumonia COVID-19 pneumonia This is a 56-year-old female patient of Dr. Coffey with no significant medical history, who presented to the emergency department on 09/21/2021 for evaluation of worsening dyspnea, patient wears a apple Smart watch and when she checked her oxygen it was noted to be very low measuring 60-70%. She has been having a cough and a fever for about 1 week. She called her primary care doctor and was told to come into the emergency department. Patient denied any chest pain, patient was tested positive for COVID 19 5 days ago. No nausea or vomiting, no abdominal pain. Patient did have some diarrhea related to COVID-19 infection. Patient had her first COVID-19 injection back in November 2020 however she developed a reaction to it with development of a rash, lips tingling and hypertension and she did not receive her second COVID-19 injection. Chest x-ray in emergency department showed some patchy interstitial mild pneumonia. Admission showed white blood cell count of 6.4, hemoglobin 14.2, platelet count was 442, INR was 0.9, d-dimer 0.81, sodium was 134, potassium is 4.2, chloride was 96, CO2 is 27, BUN was 16, creatinine was 0.7, lactic acid was 1.4, ferritin level was 2674, AST was 178, ALT was 53, LDH was 3014, CRP was 16.8, pro calcitonin level was 0.17. CTA chest was obtained showing no evidence of pulmonary embolism, and extensive bilateral pneumonia. She was started on Decadron, prophylactic dose Lovenox 40 mg daily, and we were asked to see the patient in consultation COVID-19 pneumonia The patient is seen today 09/23/2021 in follow-up on the regular medical floor. She is currently sitting up at the bedside. Awake and alert in no acute distress. Doing about the same today as compared to yesterday. Routine O2 saturations at 90% on 6 L high flow nasal cannula. Afebrile. Hemodynamically stable. White count 11.3. Hemoglobin 13.1. D-dimer 0.52. C-reactive protein 5.0. Day #2 of Remdesivir. She is continued on Decadron 6 mg daily. Lovenox 40 mg daily. Vitamin supplements. The patient is seen today 09/24/2021 in follow-up on the regular medical floor. She is awake and alert in no acute distress. Sitting up in a chair at the bedside. Now requiring 9 L high flow nasal cannula to maintain O2 saturations in the low 90s. Chest x-ray continues to show significant bilateral groundglass opacities bilaterally. No pneumothorax or pleural effusion. D-dimer 0.95. LDH 2074. C-reactive protein 3.2. Trending down. This is day #3 of Remdesivir. She remains on Lovenox, Decadron, vitamin supplements. The patient is seen today 09/25/2021 in follow-up on the regular medical floor. She is currently sitting up in chair at the bedside. Awake and alert in no acute distress. Feeling a bit better today compared to yesterday. He is requiring 10 L high flow nasal cannula to maintain O2 saturations in the 90s. This is day #4 of Remdesivir. D-dimer 1.57. C-reactive protein 1.90. LDH 730. Improving. Continued on Decadron, Lovenox, vitamin supplements. Progress note dated 09/26/2021. The patient is again seen on the general medical floor, room 485. The patient's chest x-rays reviewed. Additional subcutaneous emphysema, pneumomediastinum, but no obvious pneumothorax. The patient was placed on BiPAP, and seems to be doing a lot better. Lab data today included a d-dimer of 1.06, and a C-reactive protein of 5.40. Chest x-ray shows diffuse bilateral infiltrates, with subcutaneous emphysema, and pneumomediastinum. The patient is currently on dexamethasone, Lovenox, and ALEXX. She has completed her REM today. Progress note dated 09/27/2021. 56-year-old female, seen again, and room 485. Currently, the patient is on BiPAP, with settings of IPAP 12, EPAP 6, and 100%. The patient is not receiving any IV fluids. Clinically, although she is on quite a bit of support, she looks reasonably well. She has a mild increase in her respiratory rate, but is not using any accessory muscles. White count is 10.9, hemoglobin 13.5, hematocrit 42.2, and platelet count 331,000. D-dimer is 1.55. Sodium, is normal, potassium 4.3, chlorides 100, CO2 31, anion gap 6, BUN 23, and creatinine 0.6. C-reactive protein is 15.5. The patient's chest x-ray shows diffuse bilateral infiltrates, subcutaneous emphysema, and pneumomediastinum. This is the x-ray that we reviewed from yesterday. Progress note dated 09/29/2021. The patient is again seen today in room 485. The patient has been transitioned from BiPAP, to AIRVO, at 60 L/m and 94% FiO2. She appreciates his form of oxygenation much better than the BiPAP. Currently, she states that she feels better. She is not receiving any IV fluids. Her biggest complaint is shortness of breath on exertion. White count 12.7, hemoglobin 13.1, hematocrit 41.6, and platelet count 348,000. D-dimer is 5.81. Sodium 135, potassium 4.6, chlorides 100, CO2 30, anion gap 5, BUN 21, and creatinine 0.51. A repeat CT angiogram was negative for pulmonary embolism. A repeat chest x-ray shows stable bilateral infiltrates. Objective - Vital Signs Vital signs: Vital Signs Temp 98.1 F 09/29/21 09:40 Pulse 91 09/29/21 09:40 Resp 18 09/29/21 09:40 BP 124/65 09/29/21 09:40 Pulse Ox 91 L 09/29/21 09:40 Intake & Output 09/28/21 09/29/21 09/29/21 18:59 06:59 18:59 Intake Total 590 Balance 590 Weight 82.5 kg Intake: Oral 590 Other: # Voids 2 5 - Exam No acute distress, oriented 3, Currently on AIRVO, at 60 L/m with an FiO2 of 94%. The patient's saturation is 94%. HEENT examination is grossly unremarkable. Neck supple. Full range of motion. No adenopathy thyromegaly or neck vein distention. Cardiovascular examination reveals regular rhythm rate. S1-S2 normal. No S3 or S4. No discernible murmur noted. Heart sounds are distant. Heart rate 91 bpm. Lungs reveal bilateral rhonchi. No wheezes or crackles. Breath sounds equal. Saturations 94% on a heated high flow nasal O2. Abdomen soft bowel sounds are heard. No masses or tenderness. Extremities are intact. No cyanosis clubbing or edema. Skin is without rash or lesion. Neurologic examination is brief but nonfocal. - Labs CBC & Chem 7: 09/29/21 06:14 09/29/21 06:14 Labs: Abnormal Lab Results - Last 24 Hours (Table) 09/29/21 09/29/21 09/29/21 Range/Units 06:14 06:14 06:14 WBC 12.7 H (3.8-10.6) k/uL Neutrophils # 11.3 H (1.3-7.7) k/uL Lymphocytes # 0.8 L (1.0-4.8) k/uL D-Dimer 5.81 H (<0.60) mg/L FEU Sodium 135 L (137-145) mmol/L BUN 21 H (7-17) mg/dL Creatinine 0.51 L (0.52-1.04) mg/dL Glucose 145 H (74-99) mg/dL ALT 46 H (4-34) U/L Lactate Dehydrogenase 1541 H (313-618) U/L C-Reactive Protein 5.7 H (<1.0) mg/dL Total Protein 5.9 L (6.3-8.2) g/dL Albumin 2.9 L (3.5-5.0) g/dL Assessment and Plan Assessment: Acute hypoxemic respiratory failure secondary to coronavirus associated pneumo isaiah. Diffuse subcutaneous emphysema and pneumomediastinum, without pneumothorax. Status post incomplete coronavirus vaccination. Elevated inflammatory marker secondary to coronavirus infection. No evidence of pulmonary embolism on CT angiogram, X 2. Plan: Plan dated 09/26/2021. The patient's chest x-rays reviewed. There is no obvious pneumothorax. There was subcutaneous emphysema and pneumomediastinum. The patient was placed on BiPAP. Currently, she is very stable with a saturation of 96%. There is no reason to transfer this patient to the intensive care unit, as requested by the supervising nurse on the fourth floor. This was discussed earlier with the nurse taking care of the patient. We will continue to follow and make recommendations where appropriate. Should there be a change in the patient's clinical status, we can reevaluate the patient at that time. Plan dated 09/27/2021. The patient appears to be about the same today as she was yesterday. She remains on BiPAP at 12/6, and 100%. Saturations are in the low to mid 90s. Her chest x-ray was reviewed and showed evidence of subcutaneous emphysema, and pneumomediastinum, no pneumothorax. The patient's on appropriate medications. We will continue to follow make recommendations were appropriate. She remains on vitamin C, vitamin D3, and zinc. In addition, she is on Lovenox, Decadron, and ALEXX. Prognosis is guarded. Plan dated 09/29/2021. The patient is progressing nicely in my opinion. The patient has been transitioned off the BiPAP onto heated high flow nasal oxygen/AIRVO. The chest x-ray continues to show diffuse bilateral infiltrates, subcutaneous emphysema, and pneumomediastinum without pneumothorax. There is no need to do blood work on this patient on a daily basis. The patient remains on vitamin C, vitamin D3, and zinc. In addition, the patient remains on Decadron, Lovenox, and ALEXX. We will continue to follow this patient make recommendations where appropriate. Prognosis is guarded. Time with Patient: Less than 30
--- NOTE | 2021-09-29 22:48 | PN ---
PROGRESS NOTE DATE OF SERVICE: 09/29/2021 REASON FOR FOLLOWUP: COVID-19 pneumonia. INTERVAL HISTORY: The patient is afebrile. The patient is still BiPAP-dependent. The patient is hemodynamically stable, not on any pressor support. No nausea, no vomiting, no worsening cough or abdominal pain or diarrhea. PHYSICAL EXAMINATION: Blood pressure 120/78 with a pulse of 57, temperature 98.8. She is 98% on AIRVO. General description is a middle-aged female lying in bed in no distress. RESPIRATORY SYSTEM: Unlabored breathing. Decreased intensity of breath sounds. No wheeze. HEART: S1, S2. Regular rate and rhythm. ABDOMEN: Soft. No tenderness. LABS: Hemoglobin is 13.1, white count of 12.7. D-dimer is down to 5.81. Creatinine 0.51. DIAGNOSTIC IMPRESSION AND PLAN: Patient with acute respiratory failure secondary to COVID-19 pneumonia. Minimal clinical improvement currently on baricitinib. She will continue along with the dexamethasone, Lovenox, zinc, ascorbic acid and respiratory support. Monitor clinical course closely. Continue supportive care. MMODL / IJN: [id number] /
[2021-09-30] MEDS: DEXAMETHASONE SOD PHOSPHATE 10 MG/ML 1 ML VIAL IVP SCH ×2 (08:29→20:04)
[2021-09-30] MEDS: PSYLLIUM HUSK 100% 6 GM PACKET PO SCH (08:29)
[2021-09-30] MEDS: ENOXAPARIN 40 MG/0.4 ML SYRINGE SQ SCH (08:29)
[2021-09-30] MEDS: BARICITINIB 2 MG TABLET PO SCH (08:30)
[2021-09-30] MEDS: CHOLECALCIFEROL 25 MCG (1000 IU) TABLET PO SCH (08:30)
[2021-09-30] MEDS: ASCORBIC ACID 500 MG TAB PO SCH ×2 (08:30→20:04)
[2021-09-30] MEDS: ZINC SULFATE 220 MG CAP PO SCH (08:30)
[2021-09-30 09:11] LABS: Basophils % (A) 0 %; Eosinophils % (A) 0 %; HCT 41.7 % (34.0-46.0); HGB 13.3 gm/dL (11.4-16.0); Lymphocytes # (A) 0.7 k/uL (1.0-4.8); Lymphocytes % (A) 5 %; MCHC 31.9 g/dL (31.0-37.0); MCV 91.1 fL (80.0-100.0); Mean Platelet Volume 7.9; Monocytes # (A) 0.7 k/uL (0-1.0); Monocytes % (A) 4 %; Neutrophils # (A) 14.4 k/uL (1.3-7.7); Neutrophils % (A) 90 %; Platelet Count 354 k/uL (150-450); RBC 4.58 m/uL (3.80-5.40)
[2021-09-30 09:23] LABS: ALT 43 U/L (4-34); AST 39 U/L (14-36); Alkaline Phosphatase 56 U/L (38-126); Anion Gap 10 mmol/L; Blood Urea Nitrogen 23 mg/dL (7-17); Calcium 9.4 mg/dL (8.4-10.2); Carbon Dioxide 26 mmol/L (22-30); Chloride 99 mmol/L (98-107); Glucose 192 mg/dL (74-99); Potassium 4.3 mmol/L (3.5-5.1); Sodium 135 mmol/L (137-145); Total Bilirubin 0.6 mg/dL (0.2-1.3)
[2021-09-30 09:25] LABS: African American GFR (CKD) >90 (>60 ml/min/1.73 sqM); Non-African American GFR(CKD) >90 (>60 ml/min/1.73 sqM)
--- NOTE | 2021-09-30 15:41 | P.PN ---
Subjective Progress Note Date: 09/30/21 Principal diagnosis: COVID-19 pneumonia This is a 56-year-old female patient of Dr. Coffey with no significant medical history, who presented to the emergency department on 09/21/2021 for evaluation of worsening dyspnea, patient wears a apple Smart watch and when she checked her oxygen it was noted to be very low measuring 60-70%. She has been having a cough and a fever for about 1 week. She called her primary care doctor and was told to come into the emergency department. Patient denied any chest pain, patient was tested positive for COVID 19 5 days ago. No nausea or vomiting, no abdominal pain. Patient did have some diarrhea related to COVID-19 infection. Patient had her first COVID-19 injection back in November 2020 however she developed a reaction to it with development of a rash, lips tingling and hypertension and she did not receive her second COVID-19 injection. Chest x-ray in emergency department showed some patchy interstitial mild pneumonia. Admissi on showed white blood cell count of 6.4, hemoglobin 14.2, platelet count was 442, INR was 0.9, d-dimer 0.81, sodium was 134, potassium is 4.2, chloride was 96, CO2 is 27, BUN was 16, creatinine was 0.7, lactic acid was 1.4, ferritin level was 2674, AST was 178, ALT was 53, LDH was 3014, CRP was 16.8, pro calcitonin level was 0.17. CTA chest was obtained showing no evidence of pulmonary embolism, and extensive bilateral pneumonia. She was started on Decadron, prophylactic dose Lovenox 40 mg daily, and we were asked to see the patient in consultation COVID-19 pneumonia The patient is seen today 09/23/2021 in follow-up on the regular medical floor. She is currently sitting up at the bedside. Awake and alert in no acute distress. Doing about the same today as compared to yesterday. Routine O2 saturations at 90% on 6 L high flow nasal cannula. Afebrile. Hemodynamically stable. White count 11.3. Hemoglobin 13.1. D-dimer 0.52. C-reactive protein 5.0. Day #2 of Remdesivir. She is continued on Decadron 6 mg daily. Lovenox 40 mg daily. Vitamin supplements. The patient is seen today 09/24/2021 in follow-up on the regular medical floor. She is awake and alert in no acute distress. Sitting up in a chair at the bedside. Now requiring 9 L high flow nasal cannula to maintain O2 saturations in the low 90s. Chest x-ray continues to show significant bilateral groundglass opacities bilaterally. No pneumothorax or pleural effusion. D-dimer 0.95. LDH 2074. C-reactive protein 3.2. Trending down. This is day #3 of Remdesivir. She remains on Lovenox, Decadron, vitamin supplements. The patient is seen today 09/25/2021 in follow-up on the regular medical floor. She is currently sitting up in chair at the bedside. Awake and alert in no acute distress. Feeling a bit better today compared to yesterday. He is requiring 10 L high flow nasal cannula to maintain O2 saturations in the 90s. This is day #4 of Remdesivir. D-dimer 1.57. C-reactive protein 1.90. LDH 730. Improving. Continued on Decadron, Lovenox, vitamin supplements. The patient is seen today 09/28/2021 in follow-up on the regular medical floor. She is currently resting fairly comfortably in bed. She is on BiPAP / in the 100% FiO2 to maintain O2 saturations in the 90s. She's currently afebrile. Hemodynamically stable. White count 12.1. Hemoglobin 13.7. D-dimer 7.05. Sodium was 30. Potassium 4.1. Creatinine 0.58. Glucose 149. AST 44. ALT 46. C-reactive protein 15.0. She remains on Baricitinib, Decadron, Lovenox, vitamin supplements. Progress note dated 09/29/2021. The patient is again seen today in room 485. The patient has been transitioned from BiPAP, to AIRVO, at 60 L/m and 94% FiO2. She appreciates his form of oxygenation much better than the BiPAP. Currently, she states that she feels better. She is not receiving any IV fluids. Her biggest complaint is shortness of breath on exertion. White count 12.7, hemoglobin 13.1, hematocrit 41.6, and platelet count 348,000. D-dimer is 5.81. Sodium 135, potassium 4.6, chlorides 100, CO2 30, anion gap 5, BUN 21, and creatinine 0.51. A repeat CT angiogram was negative for pulmonary embolism. A repeat chest x-ray shows stable bilateral infiltrates. The patient is seen today 09/30/2021 in follow-up on the regular medical floor. She is sitting up in bed. Awake and alert in no acute distress. She is a ctually doing a bit better today. Breathing easier. She is still on AirVo high flow oxygen at 60 L and 90% FiO2 but feeling stronger. White count 16.0. Hemoglobin 13.3. Lymphocytic 0.7. D-dimer 5.09. Sodium 135. Potassium 4.3. Creatinine 0.49. Glucose 192. AST 39. ALT 43. He remains on Baricitinib, Decadron, Lovenox, vitamin supplements. CT angiogram from 09/28/2021 revealed no acute pulmonary embolism. There was evidence of pneumomediastinum. Some left chest wall subcutaneous emphysema. Continue diffuse consolidation throughout bilateral lung montilla. Objective - Vital Signs Vital signs: Vital Signs Temp 97.7 F 09/30/21 08:35 Pulse 82 09/30/21 08:35 Resp 18 09/30/21 08:35 BP 115/71 09/30/21 08:35 Pulse Ox 95 09/30/21 11:31 Intake & Output 09/29/21 09/30/21 09/30/21 18:59 06:59 18:59 Intake Total 360 Balance 360 Intake: Oral 360 Other: # Voids 2 5 - Exam GENERAL EXAM: Alert, pleasant 56-year-old female patient, on AirVo high flow oxygen at 60 L and 90% FiO2, in mild respiratory distress. HEAD: Normocephalic. EYES: Normal reaction of pupils, equal size. NOSE: Clear with pink turbinates. THROAT: No erythema or exudates. NECK: No masses, no JVD. CHEST: No chest wall deformity. LUNGS: Equal air entry with crackles in bilateral bases. CVS: S1 and S2 normal with no audible murmur, regular rhythm. ABDOMEN: No hepatosplenomegaly, normal bowel sounds, no guarding or rigidity. SPINE: No scoliosis or deformity SKIN: No rashes CENTRAL NERVOUS SYSTEM: No focal deficits, tone is normal in all 4 extremities. EXTREMITIES: There is no peripheral edema. No clubbing, no cyanosis. Peripheral pulses are intact. - Labs CBC & Chem 7: 09/30/21 08:48 09/30/21 08:48 Labs: Abnormal Lab Results - Last 24 Hours (Table) 09/30/21 09/30/21 09/30/21 Range/Units 08:48 08:48 08:48 WBC 16.0 H (3.8-10.6) k/uL Neutrophils # 14.4 H (1.3-7.7) k/uL Lymphocytes # 0.7 L (1.0-4.8) k/uL D-Dimer 5.09 H (<0.60) mg/L FEU Sodium 135 L (137-145) mmol/L BUN 23 H (7-17) mg/dL Creatinine 0.49 L (0.52-1.04) mg/dL Glucose 192 H (74-99) mg/dL AST 39 H (14-36) U/L ALT 43 H (4-34) U/L Total Protein 6.0 L (6.3-8.2) g/dL Albumin 3.0 L (3.5-5.0) g/dL Assessment and Plan Assessment: 1 Acute hypoxic respiratory failure related to acute COVID-19 pneumonia, with onset of symptoms within 1 week of presentation to the emergency department. Remdesivir started on 09/22/2021, and increased oxygen requirements and she was initiated on Baricitinib 09/26/2021 2 Incomplete COVID-19 vaccination, patient received 1 dose of COVID-19 vaccine in November 2020, developed a reaction with skin rash, hypertension, and tingling lips, and did not complete her second injection 3 Elevated inflammatory markers related to acute viral pneumonia 4 Elevated d-dimer without evidence of pulmonary embolism on CT angiogram Plan: The patient was seen and evaluated by Dr. Suazo Currently on AirVo high flow oxygen at 60 L and 90% FiO2 Feeling a bit better today compared to yesterday Completed Remdesivir Continue on Baricitinib, Lovenox, Decadron, vitamin supplements Titrate the FiO2 as tolerated We will continue to follow I, the cosigning physician, performed a history & physical examination of the patient. Lungs sounds coarse crackles in the bilateral bases. Maintaining good O2 saturations in the 90s on AirVo high flow oxygen at 60 L and 90% FiO2. I discussed the assessment and plan of care with my nurse practitioner, Pat Wong. I attest to the above note as dictated by her.
--- NOTE | 2021-09-30 17:22 | P.PN ---
Progress Note - Text Progress Note Date: 09/30/21 Chief Complaint: Short of breath This is a 56-year-old patient who follows with Dr. Coffey. Normally in good health. Was on taking any medications. Patient received off for short of posterior on it this year. Few minutes up to that she had developed a rash on the chest. Blood pressure was a bit high. Some tingling in the lips. There was no lip swelling no tongue swelling no choking no shortness of breath. Given this reaction she did not take the second dose of COVID shock. Patient for about a week has been getting progressively more short of breath. Having diarrhea for last 3 days. Everything tastes salty. Having. Slight headache. Has a dry cough. Her pulse ox at room has been off and on 84%. Poor appetite. Has been getting dizzy. She talk to her family doctor on videophone. He asked her to come in to the hospital. Patient tested positive for COVID 5 days ago. Tired and rundown. She been having some fevers. Admitted with COVID 19 pneumonitis, acute hypoxic respiratory failure. Started on dexamethasone, oxygen. IV fluids. Initially FiO2 increased to 6 L. Patient went out to use the BiPAP. This swished over to Airvo. Oral intake fluctuating. Also pneumomediastinum. Been followed conservatively . 09/29/2021: Remains short of breath. Changed over to Airvo. On 60 L and 90% FiO2. Decreased oral intake. Up in a recliner. Pneumomediastinum per chest x- ray/computed tomography scan. 09/30/2021: Short of breath. Recliner. On Airvo. 60 L and 94% FiO2. Eating some. Tired. Review of systems: Was done for constitutional, cardiovascular, GI, pulmonary. relevant finding as above Active Medications Acetaminophen (Acetaminophen Tab 325 Mg Tab) 650 mg PO Q6HR PRN PRN Reason: Mild Pain or Fever > 100.5 Last Admin: 09/21/21 21:59 Dose: 650 mg Documented by: Al Hydroxide/Mg Hydroxide (Mag Hydrox/Al Hydrox/Simeth 30 Ml Cup) 15 ml PO Q6HR PRN PRN Reason: Indigestion Alprazolam (Alprazolam 0.25 Mg Tab) 0.25 mg PO Q6HR PRN PRN Reason: Anxiety Ascorbic Acid (Ascorbic Acid 500 Mg Tab) 500 mg PO BID [facility] Last Admin: 09/30/21 08:30 Dose: 500 mg Documented by: Baricitinib (Baricitinib 2 Mg Tablet) 4 mg PO DAILY [facility] Stop: 10/09/21 09:59 Last Admin: 09/30/21 08:30 Dose: 4 mg Documented by: Calcium Carbonate/Glycine (Calcium Carbonate 500 Mg Chewable) 1,000 mg PO Q4HR PRN PRN Reason: Dyspepsia Cholecalciferol (Cholecalciferol 25 Mcg (1000 Iu) Tablet) 100 mcg PO DAILY [facility] Last Admin: 09/30/21 08:30 Dose: 100 mcg Documented by: Dexamethasone Sodium Phosphate (Dexamethasone Sod Phosphate 10 Mg/Ml 1 Ml Vial) 6 mg IVP BID [facility] Last Admin: 09/30/21 08:29 Dose: 6 mg Documented by: Enoxaparin Sodium (Enoxaparin 40 Mg/0.4 Ml Syringe) 40 mg SQ DAILY [facility] Last Admin: 09/30/21 08:29 Dose: 40 mg Documented by: Lactulose (Lactulose 20 Gm/30 Ml Cup) 20 gm PO DAILY PRN PRN Reason: Constipation Magnesium Hydroxide (Magnesium Hydroxide 2,400 Mg/10 Ml Cup) 2,400 mg PO DAILY PRN PRN Reason: Constipation Melatonin (Melatonin 3 Mg Tablet) 3 mg PO HS PRN PRN Reason: Insomnia Last Admin: 09/23/21 20:41 Dose: 3 mg Documented by: Naloxone HCl (Naloxone 0.4 Mg/Ml 1 Ml Vial) 0.2 mg IV Q2M PRN PRN Reason: Opioid Reversal Ondansetron HCl (Ondansetron 4 Mg/2 Ml Vial) 4 mg IVP Q8HR PRN PRN Reason: Nausea And Vomiting Psyllium Hydrophilic Mucilloid (Psyllium Husk 100% 6 Gm Packet) 6 gm PO DAILY [facility] Last Admin: 09/30/21 08:29 Dose: 6 gm Documented by: Zinc Sulfate (Zinc Sulfate 220 Mg Cap) 220 mg PO DAILY [facility] Last Admin: 09/30/21 08:30 Dose: 220 mg Documented by: Past medical history: Unremarkable Social history: Does not smoke or drink alcohol. . 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 Family history: Reviewed, noncontributory to presentation Physical examination: VITAL SIGNS: 97.7, 82, 18, 115/71, 96% on 60% liters 94% FiO2 GENERAL: Reclining in recliner, tired, short of breath LUNGS: Respiratory rate increased, . PSYCH: Alert and oriented x3; mood and affect tired NEUROLOGICAL: Cranial nerves grossly intact; no facial asymmetry, moving all her limbs Rest of the exam per pulmonary, nursing INVESTIGATIONS, reviewed in the clinical context: September 30: WBC 16 hemoglobin 13.3 d-dimer 5.09 potassium 4.3 BUN [address] chest [September 28]: Infiltrates, pneumomediastinum September 25: D-dimer 1.57 CRP 1.9 Chest x-ray film personally reviewed by me-[September 24]: Scattered infiltrates September 23: White count 11.3 hemoglobin 13.1 and platelets 210 d-dimer 0.5 to CRP 5.0 WBC 6.4 hemoglobin 14.2 platelets 142 d-dimer 0.81 potassium 4.2 BUN 16 creatinine 0.70 CRP 16.8 Chest x-ray film personally reviewed by me-bilateral infiltrates Assessment and plan: -Acute bilateral COVID 19 pneumonitis. Received her first dose of vaccine in November. Had ALLERGIC reaction and did not get the second short period patient's symptoms have been present for about a week: Not improving Dexamethasone. IV Remdesivir completed. IV Baricitinib -Acute hypoxic respiratory failure from COVID 19 pneumonitis.: Not improving On Airvo 60/90 -Pneumomediastinum Being followed by pulmonary -Sepsis from COVID 19 pneumonitis IV fluids -Thrombocytopenia from COVID 19: Better Follow CBC -Acute medical debility from COVID 19. -Possible mild COVID-19 hepatitis -Hypoalbuminemia, acute phase reactant Dexamethasone 6 mg twice a day, IV Remdesivir-completed. Airvo Incentive spirometry. Baricitinib . Discussed with the patient.
--- NOTE | 2021-09-30 18:17 | PN ---
PROGRESS NOTE DATE OF SERVICE: 09/30/2021 REASON FOR FOLLOWUP: COVID-19 pneumonia. INTERVAL HISTORY: The patient is afebrile. The patient is breathing slightly comfortably, currently on Airvo. The patient denies having any chest pain. No worsening cough. No vomiting. No abdominal pain, no diarrhea. PHYSICAL EXAMINATION: Blood pressure 125/81, pulse of 79, temperature 98.1. She is 97% on ( ) FiO2. General description is a middle-aged female up in the bed in no distress. Respiratory system: Unlabored breathing, decreased intensity of breath sounds. No wheeze. Heart S1, S2. Regular rate and rhythm. Abdomen soft, no tenderness. LABS: Hemoglobin 13.1, white count 16. BUN of 23, creatinine 0.49. IMPRESSION/PLAN: 1. Patient with acute COVID-19 pneumonia, minimal clinical improvement. Patient on baricitinib, dexamethasone, Lovenox, zinc and ascorbic acid, to continue. .. 2. Elevated white count, more likely steroid effect and will monitor closely. Continue supportive care. MMODL / IJN: [id number] /
[2021-10-01 07:56] LABS: Basophils % (A) 0 %; Eosinophils # (A) 0.1 k/uL (0-0.7); Eosinophils % (A) 0 %; HCT 42.9 % (34.0-46.0); HGB 13.6 gm/dL (11.4-16.0); Lymphocytes % (A) 6 %; MCH 28.5 pg (25.0-35.0); MCHC 31.7 g/dL (31.0-37.0); Mean Platelet Volume 7.8; Monocytes # (A) 0.6 k/uL (0-1.0); Monocytes % (A) 3 %; Neutrophils # (A) 16.1 k/uL (1.3-7.7); Neutrophils % (A) 90 %; Platelet Count 326 k/uL (150-450); RBC 4.76 m/uL (3.80-5.40); WBC 17.9 k/uL (3.8-10.6)
[2021-10-01] MEDS: ASCORBIC ACID 500 MG TAB PO SCH ×2 (07:58→20:34)
[2021-10-01] MEDS: CHOLECALCIFEROL 25 MCG (1000 IU) TABLET PO SCH (07:58)
[2021-10-01] MEDS: DEXAMETHASONE SOD PHOSPHATE 10 MG/ML 1 ML VIAL IVP SCH ×2 (07:58→20:34)
[2021-10-01] MEDS: ENOXAPARIN 40 MG/0.4 ML SYRINGE SQ SCH (07:59)
[2021-10-01] MEDS: ZINC SULFATE 220 MG CAP PO SCH (07:59)
[2021-10-01] MEDS: BARICITINIB 2 MG TABLET PO SCH (07:59)
[2021-10-01] MEDS: PSYLLIUM HUSK 100% 6 GM PACKET PO SCH (08:06)
[2021-10-01 08:19] LABS: ALT 49 U/L (4-34); AST 45 U/L (14-36); African American GFR (CKD) >90 (>60 ml/min/1.73 sqM); Alkaline Phosphatase 65 U/L (38-126); Anion Gap 5 mmol/L; Blood Urea Nitrogen 18 mg/dL (7-17); Calcium 9.1 mg/dL (8.4-10.2); Carbon Dioxide 31 mmol/L (22-30); Chloride 98 mmol/L (98-107); Globulin 3.1 g/dL; Glucose 100 mg/dL (74-99); Non-African American GFR(CKD) >90 (>60 ml/min/1.73 sqM); Potassium 4.4 mmol/L (3.5-5.1); Sodium 134 mmol/L (137-145); Total Bilirubin 0.7 mg/dL (0.2-1.3); Total Protein 6.1 g/dL (6.3-8.2)
--- NOTE | 2021-10-01 13:57 | P.PN ---
Subjective Progress Note Date: 10/01/21 Principal diagnosis: Coronavirus associated pneumonia COVID-19 pneumonia This is a 56-year-old female patient of Dr. Coffey with no significant medical history, who presented to the emergency department on 09/21/2021 for evaluation of worsening dyspnea, patient wears a apple Smart watch and when she checked her oxygen it was noted to be very low measuring 60-70%. She has been having a cough and a fever for about 1 week. She called her primary care doctor and was told to come into the emergency department. Patient denied any chest pain, patient was tested positive for COVID 19 5 days ago. No nausea or vomiting, no abdominal pain. Patient did have some diarrhea related to COVID-19 infection. Patient had her first COVID-19 injection back in November 2020 however she developed a reaction to it with development of a rash, lips tingling and hypertension and she did not receive her second COVID-19 injection. Chest x-ray in emergency department showed some patchy interstitial mild pneumonia. Admission showed white blood cell count of 6.4, hemoglobin 14.2, platelet count was 442, INR was 0.9, d-dimer 0.81, sodium was 134, potassium is 4.2, chloride was 96, CO2 is 27, BUN was 16, creatinine was 0.7, lactic acid was 1.4, ferritin level was 2674, AST was 178, ALT was 53, LDH was 3014, CRP was 16.8, pro calcitonin level was 0.17. CTA chest was obtained showing no evidence of pulmonary embolism, and extensive bilateral pneumonia. She was started on Decadron, prophylactic dose Lovenox 40 mg daily, and we were asked to see the patient in consultation COVID-19 pneumonia The patient is seen today 09/23/2021 in follow-up on the regular medical floor. She is currently sitting up at the bedside. Awake and alert in no acute distress. Doing about the same today as compared to yesterday. Routine O2 saturations at 90% on 6 L high flow nasal cannula. Afebrile. Hemodynamically stable. White count 11.3. Hemoglobin 13.1. D-dimer 0.52. C-reactive protein 5.0. Day #2 of Remdesivir. She is continued on Decadron 6 mg daily. Lovenox 40 mg daily. Vitamin supplements. The patient is seen today 09/24/2021 in follow-up on the regular medical floor. She is awake and alert in no acute distress. Sitting up in a chair at the bedside. Now requiring 9 L high flow nasal cannula to maintain O2 saturations in the low 90s. Chest x-ray continues to show significant bilateral groundglass opacities bilaterally. No pneumothorax or pleural effusion. D-dimer 0.95. LDH 2074. C-reactive protein 3.2. Trending down. This is day #3 of Remdesivir. She remains on Lovenox, Decadron, vitamin supplements. The patient is seen today 09/25/2021 in follow-up on the regular medical floor. She is currently sitting up in chair at the bedside. Awake and alert in no acute distress. Feeling a bit better today compared to yesterday. He is requiring 10 L high flow nasal cannula to maintain O2 saturations in the 90s. This is day #4 of Remdesivir. D-dimer 1.57. C-reactive protein 1.90. LDH 730. Improving. Continued on Decadron, Lovenox, vitamin supplements. Progress note dated 09/26/2021. The patient is again seen on the general medical floor, room 485. The patient's chest x-rays reviewed. Additional subcutaneous emphysema, pneumomediastinum, but no obvious pneumothorax. The patient was placed on BiPAP, and seems to be doing a lot better. Lab data today included a d-dimer of 1.06, and a C-reactive protein of 5.40. Chest x-ray shows diffuse bilateral infiltrates, with subcutaneous emphysema, and pneumomediastinum. The patient is currently on dexamethasone, Lovenox, and ALEXX. She has completed her REM today. Progress note dated 09/27/2021. 56-year-old female, seen again, and room 485. Currently, the patient is on BiPAP, with settings of IPAP 12, EPAP 6, and 100%. The patient is not receiving any IV fluids. Clinically, although she is on quite a bit of support, she looks reasonably well. She has a mild increase in her respiratory rate, but is not using any accessory muscles. White count is 10.9, hemoglobin 13.5, hematocrit 42.2, and platelet count 331,000. D-dimer is 1.55. Sodium, is normal, potassium 4.3, chlorides 100, CO2 31, anion gap 6, BUN 23, and creatinine 0.6. C-reactive protein is 15.5. The patient's chest x-ray shows diffuse bilateral infiltrates, subcutaneous emphysema, and pneumomediastinum. This is the x-ray that we reviewed from yesterday. Progress note dated 09/29/2021. The patient is again seen today in room 485. The patient has been transitioned from BiPAP, to AIRVO, at 60 L/m and 94% FiO2. She appreciates his form of oxygenation much better than the BiPAP. Currently, she states that she feels better. She is not receiving any IV fluids. Her biggest complaint is shortness of breath on exertion. White count 12.7, hemoglobin 13.1, hematocrit 41.6, and platelet count 348,000. D-dimer is 5.81. Sodium 135, potassium 4.6, chlorides 100, CO2 30, anion gap 5, BUN 21, and creatinine 0.51. A repeat CT angiogram was negative for pulmonary embolism. A repeat chest x-ray shows stable bilateral infiltrates. Progress note dated 10/01/2021. The patient remains on AIRVO. She is again seen in room 485. Currently, her settings include 60 L/m, and an FiO2 of 70%. She's not receiving any IV fluids. Clinically, she feels better. Lab data today includes a white count of 17.9, hemoglobin 13.6, hematocrit 42.9, and a normal platelet count. D-dimer is 5.09 from yesterday. Sodium 134, potassium 4.4, chlorides 98, CO2 31, anion gap 5, BUN 18, creatinine 0.51. There was no chest x-ray today. CT angiogram was repeated and was negative for pulmonary embolism. Objective - Vital Signs Vital signs: Vital Signs Temp 97.9 F 10/01/21 10:00 Pulse 88 10/01/21 10:00 Resp 22 10/01/21 10:00 BP 109/71 10/01/21 10:00 Pulse Ox 93 L 10/01/21 11:57 Intake & Output 09/30/21 10/01/21 10/01/21 18:59 06:59 18:59 Other: # Voids 4 - Exam No acute distress, oriented 3, Currently on AIRVO, at 60 L/m with an FiO2 of 70%. The patient's saturation is 93%. HEENT examination is grossly unremarkable. Neck supple. Full range of motion. No adenopathy thyromegaly or neck vein distention. Cardiovascular examination reveals regular rhythm rate. S1-S2 normal. No S3 or S4. No discernible murmur noted. Heart sounds are distant. Heart rate 88 bpm. Lungs reveal bilateral rhonchi. No wheezes or crackles. Breath sounds equal. Saturations on AIRVO are 93%. Abdomen soft bowel sounds are heard. No masses or tenderness. Extremities are intact. No cyanosis clubbing or edema. Skin is without rash or lesion. Neurologic examination is brief but nonfocal. - Labs CBC & Chem 7: 10/01/21 07:31 10/01/21 07:31 Labs: Abnormal Lab Results - Last 24 Hours (Table) 10/01/21 10/01/21 Range/Units 07:31 07:31 WBC 17.9 H (3.8-10.6) k/uL Neutrophils # 16.1 H (1.3-7.7) k/uL Sodium 134 L (137-145) mmol/L Carbon Dioxide 31 H (22-30) mmol/L BUN 18 H (7-17) mg/dL Creatinine 0.51 L (0.52-1.04) mg/dL Glucose 100 H (74-99) mg/dL AST 45 H (14-36) U/L ALT 49 H (4-34) U/L Total Protein 6.1 L (6.3-8.2) g/dL Albumin 3.0 L (3.5-5.0) g/dL Assessment and Plan Assessment: Acute hypoxemic respiratory failure secondary to coronavirus associated pneumonia. Diffuse subcutaneous emphysema and pneumomediastinum, without pneumothorax. Status post incomplete coronavirus vaccination. Elevated inflammatory marker secondary to coronavirus infection. No evidence of pulmonary embolism on CT angiogram, X 2. Plan: Plan dated 09/26/2021. The patient's chest x-rays reviewed. There is no obvious pneumothorax. There was subcutaneous emphysema and pneumomediastinum. The patient was placed on BiPAP. Currently, she is very stable with a saturation of 96%. There is no reason to transfer this patient to the intensive care unit, as requested by the supervising nurse on the fourth floor. This was discussed earlier with the nurse taking care of the patient. We will continue to follow and make recommendations where appropriate. Should there be a change in the patient's clinical status, we can reevaluate the patient at that time. Plan dated 09/27/2021. The patient appears to be about the same today as she was yesterday. She remains on BiPAP at 12/6, and 100%. Saturations are in the low to mid 90s. Her chest x-ray was reviewed and showed evidence of subcutaneous emphysema, and pneumomediastinum, no pneumothorax. The patient's on appropriate medications. We will continue to follow make recommendations were appropriate. She remains on vitamin C, vitamin D3, and zinc. In addition, she is on Lovenox, Decadron, and ALEXX. Prognosis is guarded. Plan dated 09/29/2021. The patient is progressing nicely in my opinion. The patient has been transitioned off the BiPAP onto heated high flow nasal oxygen/AIRVO. The chest x-ray continues to show diffuse bilateral infiltrates, subcutaneous emphysema, and pneumomediastinum without pneumothorax. There is no need to do blood work on this patient on a daily basis. The patient remains on vitamin C, vitamin D3, and zinc. In addition, the patient remains on Decadron, Lovenox, and ALEXX. We will continue to follow this patient make recommendations where appropriate. Prognosis is guarded. Plan dated 10/01/2021. The patient's doing well. Her AIRVO has been turned down to 60 L/m with an FiO2 of 70%. Her pulse ox readings are right around 93-94%. Clinically, she feels improved. The most recent x-rays and CAT scans of the chest show evidence of subcutaneous pneumomediastinum, without pneumothorax. The patient remains on appropriate medications including vitamin C, vitamin D3, zinc, Decadron, Lovenox, and ALEXX. We will continue to follow and make recommendations where appropriate. Time with Patient: Less than 30
--- NOTE | 2021-10-01 17:49 | P.PN ---
Subjective This is a 56-year-old patient who follows with Dr. Coffey. Normally in good health. Was on taking any medications. Patient received off for short of posterior on it this year. Few minutes up to that she had developed a rash on the chest. Blood pressure was a bit high. Some tingling in the lips. There was no lip swelling no tongue swelling no choking no shortness of breath. Given this reaction she did not take the second dose of COVID shock. Patient for about a week has been getting progressively more short of breath. Having diarrhea for last 3 days. Everything tastes salty. Having. Slight headache. Has a dry cough. Her pulse ox at room has been off and on 84%. Poor appetite. Has been getting dizzy. She talk to her family doctor on videophone. He asked her to come in to the hospital. Patient tested positive for COVID 5 days ago. Tired and rundown. She been having some fevers. Admitted with COVID 19 pneumonitis, acute hypoxic respiratory failure. Started on dexamethasone, oxygen. IV fluids. Initially FiO2 increased to 6 L. Patient went out to use the BiPAP. This swished over to Airvo. Oral intake fluctuatin g. Also pneumomediastinum. Been followed conservatively . 09/29/2021: Remains short of breath. Changed over to Airvo. On 60 L and 90% FiO2. Decreased oral intake. Up in a recliner. Pneumomediastinum per chest x- ray/computed tomography scan. 09/30/2021: Short of breath. Recliner. On Airvo. 60 L and 94% FiO2. Eating some. Tired. Subjective: 10/01/2021 This is a pleasant 56 years old female who presents with respiratory distress secondary to bilateral Covid pneumonia and hypoxia. Patient remains slowly to respond to treatment as expected with Covid infection. Currently she is satu rating 94% on 60 L/m with FiO2 of 70%. Negative CTA for PE but she has evidence of pneumomediastinum , she has bilateral pneumonia Patient feels the same, she is resting comfortably sitting in the chair. No significant chest pain. No dyspnea while at rest. However she is still hypoxic and mildly tachypneic. She has leukocytosis at 17 K. Was 16 K yesterday. Rest of BMP is unremarkable Dexamethasone, vitamin C, vitamin D, zinc and barcitinib Objective - Vital Signs Vital signs: Vital Signs Temp 97.7 F 10/01/21 14:00 Pulse 99 10/01/21 14:00 Resp 20 10/01/21 14:00 BP 115/75 10/01/21 14:00 Pulse Ox 91 L 10/01/21 14:00 Intake & Output 09/30/21 10/01/21 10/01/21 18:59 06:59 18:59 Other: # Voids 4 - Exam GENERAL: The patient is alert and oriented x3, not in any acute distress. Well developed, well nourished. HEENT: Pupils are round and equally reacting to light. EOMI. No scleral icterus. No conjunctival pallor. Normocephalic, atraumatic. No pharyngeal erythema. No thyromegaly. CARDIOVASCULAR: S1 and S2 present. No murmurs, rubs, or gallops. PULMONARY: Chest is clear to auscultation, no wheezing or crackles. ABDOMEN: Soft, nontender, nondistended, normoactive bowel sounds. No palpable organomegaly. MUSCULOSKELETAL: No joint swelling or deformity. EXTREMITIES: No cyanosis, clubbing, or pedal edema. NEUROLOGICAL: Gross neurological examination did not reveal any focal deficits. SKIN: No rashes. no petechiae. - Labs CBC & Chem 7: 10/01/21 07:31 10/01/21 07:31 Labs: Abnormal Lab Results - Last 24 Hours (Table) 10/01/21 10/01/21 Range/Units 07:31 07:31 WBC 17.9 H (3.8-10.6) k/uL Neutrophils # 16.1 H (1.3-7.7) k/uL Sodium 134 L (137-145) mmol/L Carbon Dioxide 31 H (22-30) mmol/L BUN 18 H (7-17) mg/dL Creatinine 0.51 L (0.52-1.04) mg/dL Glucose 100 H (74-99) mg/dL AST 45 H (14-36) U/L ALT 49 H (4-34) U/L Total Protein 6.1 L (6.3-8.2) g/dL Albumin 3.0 L (3.5-5.0) g/dL Assessment and Plan Assessment: -Acute bilateral COVID 19 pneumonitis. Received her first dose of vaccine in November. Had ALLERGIC reaction and did not get the second short period patient's symptoms have been present for about a week: Not improving Dexamethasone. IV Remdesivir completed. IV Baricitinib -Acute hypoxic respiratory failure from COVID 19 pneumonitis.: Not improving On Airvo 60/90 -Pneumomediastinum Being followed by pulmonary -Sepsis from COVID 19 pneumonitis IV fluids -Thrombocytopenia from COVID 19: Better Follow CBC -Acute medical debility from COVID 19. -Possible mild COVID-19 hepatitis -Hypoalbuminemia, acute phase reactant
--- NOTE | 2021-10-01 19:11 | PN ---
PROGRESS NOTE DATE OF SERVICE: 10/01/2021 REASON FOR FOLLOWUP: COVID-19 pneumonia. INTERVAL HISTORY: The patient is afebrile. The patient is breathing more comfortably today. The patient denies having any chest pain. She did have a cough which is mostly dry. No vomiting, no abdominal pain and no diarrhea. PHYSICAL EXAMINATION: Blood pressure 115/75 with a pulse of 99, temperature is 97.5 and she is 91% on 70% AIRVO. General description is a middle-aged female lying in bed in no distress. Respiratory system: Unlabored breathing, decreased intensity of breath sounds. No wheeze. Heart S1, S2. Regular rate and rhythm. Abdomen soft, no tenderness. Extremities: No edema of the feet. LABS: Hemoglobin is 13.2, white count 17.9, creatinine 0.51. DIAGNOSTIC IMPRESSION AND PLAN: Patient with acute COVID-19 pneumonia. This patient did have minimal clinical improvement. The patient is currently on baricitinib, dexamethasone, Lovenox, zinc and ascorbic acid to continue along with respiratory support and monitor clinical course closely. Continue supportive care. MMODL / IJN: [id number] /
--- NOTE | 2021-10-02 06:54 | XR ---
EXAMINATION TYPE: XR chest 1V portable DATE OF EXAM: 10/02/2021 COMPARISON: 09/29/2021 HISTORY: Covid TECHNIQUE: Single frontal view of the chest is obtained. FINDINGS: There are diffuse moderate to marked fluffy airspace infiltrates unchanged compared to pre vious. There is mild facet acute emphysema along the left lateral chest wall and at the base of the n jaylene. The heart size is normal. There is no pneumothorax or large pleural effusion. The osseous structures are intact. IMPRESSION: No change in the diffuse lung infiltrates and subcutaneous emphysema.
[2021-10-02 08:24] LABS: Basophils % (A) 0 %; Eosinophils % (A) 0 %; HCT 44.8 % (34.0-46.0); HGB 14.6 gm/dL (11.4-16.0); Lymphocytes # (A) 1.5 k/uL (1.0-4.8); Lymphocytes % (A) 7 %; MCH 29.3 pg (25.0-35.0); MCHC 32.5 g/dL (31.0-37.0); MCV 90.3 fL (80.0-100.0); Mean Platelet Volume 8.2; Monocytes # (A) 0.9 k/uL (0-1.0); Monocytes % (A) 4 %; Neutrophils # (A) 18.2 k/uL (1.3-7.7); Neutrophils % (A) 87 %; Platelet Count 352 k/uL (150-450); RBC 4.96 m/uL (3.80-5.40); RDW 13.1 % (11.5-15.5); WBC 20.8 k/uL (3.8-10.6)
[2021-10-02 08:38] LABS: ALT 42 U/L (4-34); AST 33 U/L (14-36); African American GFR (CKD) >90 (>60 ml/min/1.73 sqM); Albumin 3.2 g/dL (3.5-5.0); Alkaline Phosphatase 71 U/L (38-126); Anion Gap 7 mmol/L; Blood Urea Nitrogen 20 mg/dL (7-17); Calcium 9.3 mg/dL (8.4-10.2); Carbon Dioxide 31 mmol/L (22-30); Chloride 96 mmol/L (98-107); Globulin 3.2 g/dL; Glucose 105 mg/dL (74-99); Non-African American GFR(CKD) >90 (>60 ml/min/1.73 sqM); Potassium 4.5 mmol/L (3.5-5.1); Sodium 134 mmol/L (137-145); Total Bilirubin 0.6 mg/dL (0.2-1.3); Total Protein 6.4 g/dL (6.3-8.2)
[2021-10-02] MEDS: ZINC SULFATE 220 MG CAP PO SCH (08:51)
[2021-10-02] MEDS: ASCORBIC ACID 500 MG TAB PO SCH ×2 (08:51→20:25)
[2021-10-02] MEDS: CHOLECALCIFEROL 25 MCG (1000 IU) TABLET PO SCH (08:51)
[2021-10-02] MEDS: BARICITINIB 2 MG TABLET PO SCH (08:52)
[2021-10-02] MEDS: ENOXAPARIN 40 MG/0.4 ML SYRINGE SQ SCH (08:52)
[2021-10-02] MEDS: DEXAMETHASONE SOD PHOSPHATE 10 MG/ML 1 ML VIAL IVP SCH ×2 (08:52→20:25)
[2021-10-02] MEDS: PSYLLIUM HUSK 100% 6 GM PACKET PO SCH (10:03)
--- NOTE | 2021-10-02 11:43 | P.PN ---
Subjective This is a 56-year-old patient who follows with Dr. Coffey. Normally in good health. Was on taking any medications. Patient received off for short of posterior on it this year. Few minutes up to that she had developed a rash on the chest. Blood pressure was a bit high. Some tingling in the lips. There was no lip swelling no tongue swelling no choking no shortness of breath. Given this reaction she did not take the second dose of COVID shock. Patient for about a week has been getting progressively more short of breath. Having diarrhea for last 3 days. Everything tastes salty. Having. Slight headache. Has a dry cough. Her pulse ox at room has been off and on 84%. Poor appetite. Has been getting dizzy. She talk to her family doctor on videophone. He asked her to come in to the hospital. Patient tested positive for COVID 5 days ago. Tired and rundown. She been having some fevers. Admitted with COVID 19 pneumonitis, acute hypoxic respiratory failure. Started on dexamethasone, oxygen. IV fluids. Initially FiO2 increased to 6 L. Patient went out to use the BiPAP. This swished over to Airvo. Oral intake fluctuatin g. Also pneumomediastinum. Been followed conservatively . 09/29/2021: Remains short of breath. Changed over to Airvo. On 60 L and 90% FiO2. Decreased oral intake. Up in a recliner. Pneumomediastinum per chest x- ray/computed tomography scan. 09/30/2021: Short of breath. Recliner. On Airvo. 60 L and 94% FiO2. Eating some. Tired. Subjective: 10/01/2021 This is a pleasant 56 years old female who presents with respiratory distress secondary to bilateral Covid pneumonia and hypoxia. Patient remains slowly to respond to treatment as expected with Covid infection. Currently she is satu rating 94% on 60 L/m with FiO2 of 70%. Negative CTA for PE but she has evidence of pneumomediastinum , she has bilateral pneumonia Patient feels the same, she is resting comfortably sitting in the chair. No significant chest pain. No dyspnea while at rest. However she is still hypoxic and mildly tachypneic. She has leukocytosis at 17 K. Was 16 K yesterday. Rest of BMP is unremarkable Dexamethasone, vitamin C, vitamin D, zinc and barcitinib 10/02/2021 Patient showing some improvement in her respiratory status today as she reports better breathing Ability and her oxygen requirement down to 50 L/m from 60 L yesterday with FiO2 came down to 66% as well. Vessel vitals are stable. She has mild leukocytosis at 20,000 secondary to steroid effect as well as infection. BMP is unremarkable. The chest x-ray today showing no change with diffuse infiltration in both lung montilla and subcutaneous emphysema Continue with same treatment of Dexamethasone, vitamin C, vitamin D, zinc and barcitinib Objective - Vital Signs Vital signs: Vital Signs Temp 97.8 F 10/02/21 10:00 Pulse 103 H 10/02/21 10:00 Resp 24 10/02/21 10:00 BP 127/82 10/02/21 10:00 Pulse Ox 91 L 10/02/21 11:29 Intake & Output 10/01/21 10/02/21 10/02/21 19:59 06:59 18:59 Other: # Voids # Bowel Movements - Exam GENERAL: The patient is alert and oriented x3, not in any acute distress. Well developed, well nourished. HEENT: Pupils are round and equally reacting to light. EOMI. No scleral icterus. No conjunctival pallor. Normocephalic, atraumatic. No pharyngeal erythema. No thyromegaly. CARDIOVASCULAR: S1 and S2 present. No murmurs, rubs, or gallops. PULMONARY: Chest is clear to auscultation, no wheezing or crackles. ABDOMEN: Soft, nontender, nondistended, normoactive bowel sounds. No palpable organomegaly. MUSCULOSKELETAL: No joint swelling or deformity. EXTREMITIES: No cyanosis, clubbing, or pedal edema. NEUROLOGICAL: Gross neurological examination did not reveal any focal deficits. SKIN: No rashes. no petechiae. - Labs CBC & Chem 7: 10/02/21 07:34 10/02/21 07:34 Labs: Abnormal Lab Results - Last 24 Hours (Table) 10/02/21 10/02/21 Range/Units 07:34 07:34 WBC 20.8 H (3.8-10.6) k/uL Neutrophils # 18.2 H (1.3-7.7) k/uL Sodium 134 L (137-145) mmol/L Chloride 96 L (98-107) mmol/L Carbon Dioxide 31 H (22-30) mmol/L BUN 20 H (7-17) mg/dL Creatinine 0.50 L (0.52-1.04) mg/dL Glucose 105 H (74-99) mg/dL ALT 42 H (4-34) U/L Albumin 3.2 L (3.5-5.0) g/dL Assessment and Plan Assessment: -Acute bilateral COVID 19 pneumonitis. Received her first dose of vaccine in November. Had ALLERGIC reaction and did not get the second short period patient's symptoms have been present for about a week: Not improving Dexamethasone. IV Remdesivir completed. IV Baricitinib -Acute hypoxic respiratory failure from COVID 19 pneumonitis.: Not improving On Airvo 60/90 -Pneumomediastinum Being followed by pulmonary -Sepsis from COVID 19 pneumonitis IV fluids -Thrombocytopenia from COVID 19: Better Follow CBC -Acute medical debility from COVID 19. -Possible mild COVID-19 hepatitis -Hypoalbuminemia, acute phase reactant
--- NOTE | 2021-10-02 14:11 | P.PN ---
Subjective Progress Note Date: 10/02/21 Principal diagnosis: Coronavirus associated pneumonia COVID-19 pneumonia This is a 56-year-old female patient of Dr. Coffey with no significant medical history, who presented to the emergency department on 09/21/2021 for evaluation of worsening dyspnea, patient wears a apple Smart watch and when she checked her oxygen it was noted to be very low measuring 60-70%. She has been having a cough and a fever for about 1 week. She called her primary care doctor and was told to come into the emergency department. Patient denied any chest pain, patient was tested positive for COVID 19 5 days ago. No nausea or vomiting, no abdominal pain. Patient did have some diarrhea related to COVID-19 infection. Patient had her first COVID-19 injection back in November 2020 however she developed a reaction to it with development of a rash, lips tingling and hypertension and she did not receive her second COVID-19 injection. Chest x-ray in emergency department showed some patchy interstitial mild pneumonia. Admission showed white blood cell count of 6.4, hemoglobin 14.2, platelet count was 442, INR was 0.9, d-dimer 0.81, sodium was 134, potassium is 4.2, chloride was 96, CO2 is 27, BUN was 16, creatinine was 0.7, lactic acid was 1.4, ferritin level was 2674, AST was 178, ALT was 53, LDH was 3014, CRP was 16.8, pro calcitonin level was 0.17. CTA chest was obtained showing no evidence of pulmonary embolism, and extensive bilateral pneumonia. She was started on Decadron, prophylactic dose Lovenox 40 mg daily, and we were asked to see the patient in consultation COVID-19 pneumonia The patient is seen today 09/23/2021 in follow-up on the regular medical floor. She is currently sitting up at the bedside. Awake and alert in no acute distress. Doing about the same today as compared to yesterday. Routine O2 saturations at 90% on 6 L high flow nasal cannula. Afebrile. Hemodynamically stable. White count 11.3. Hemoglobin 13.1. D-dimer 0.52. C-reactive protein 5.0. Day #2 of Remdesivir. She is continued on Decadron 6 mg daily. Lovenox 40 mg daily. Vitamin supplements. The patient is seen today 09/24/2021 in follow-up on the regular medical floor. She is awake and alert in no acute distress. Sitting up in a chair at the bedside. Now requiring 9 L high flow nasal cannula to maintain O2 saturations in the low 90s. Chest x-ray continues to show significant bilateral groundglass opacities bilaterally. No pneumothorax or pleural effusion. D-dimer 0.95. LDH 2074. C-reactive protein 3.2. Trending down. This is day #3 of Remdesivir. She remains on Lovenox, Decadron, vitamin supplements. The patient is seen today 09/25/2021 in follow-up on the regular medical floor. She is currently sitting up in chair at the bedside. Awake and alert in no acute distress. Feeling a bit better today compared to yesterday. He is requiring 10 L high flow nasal cannula to maintain O2 saturations in the 90s. This is day #4 of Remdesivir. D-dimer 1.57. C-reactive protein 1.90. LDH 730. Improving. Continued on Decadron, Lovenox, vitamin supplements. Progress note dated 09/26/2021. The patient is again seen on the general medical floor, room 485. The patient's chest x-rays reviewed. Additional subcutaneous emphysema, pneumomediastinum, but no obvious pneumothorax. The patient was placed on BiPAP, and seems to be doing a lot better. Lab data today included a d-dimer of 1.06, and a C-reactive protein of 5.40. Chest x-ray shows diffuse bilateral infiltrates, with subcutaneous emphysema, and pneumomediastinum. The patient is currently on dexamethasone, Lovenox, and ALEXX. She has completed her REM today. Progress note dated 09/27/2021. 56-year-old female, seen again, and room 485. Currently, the patient is on BiPAP, with settings of IPAP 12, EPAP 6, and 100%. The patient is not receiving any IV fluids. Clinically, although she is on quite a bit of support, she looks reasonably well. She has a mild increase in her respiratory rate, but is not using any accessory muscles. White count is 10.9, hemoglobin 13.5, hematocrit 42.2, and platelet count 331,000. D-dimer is 1.55. Sodium, is normal, potassium 4.3, chlorides 100, CO2 31, anion gap 6, BUN 23, and creatinine 0.6. C-reactive protein is 15.5. The patient's chest x-ray shows diffuse bilateral infiltrates, subcutaneous emphysema, and pneumomediastinum. This is the x-ray that we reviewed from yesterday. Progress note dated 09/29/2021. The patient is again seen today in room 485. The patient has been transitioned from BiPAP, to AIRVO, at 60 L/m and 94% FiO2. She appreciates his form of oxygenation much better than the BiPAP. Currently, she states that she feels better. She is not receiving any IV fluids. Her biggest complaint is shortness of breath on exertion. White count 12.7, hemoglobin 13.1, hematocrit 41.6, and platelet count 348,000. D-dimer is 5.81. Sodium 135, potassium 4.6, chlorides 100, CO2 30, anion gap 5, BUN 21, and creatinine 0.51. A repeat CT angiogram was negative for pulmonary embolism. A repeat chest x-ray shows stable bilateral infiltrates. Progress note dated 10/01/2021. The patient remains on AIRVO. She is again seen in room 485. Currently, her settings include 60 L/m, and an FiO2 of 70%. She's not receiving any IV fluids. Clinically, she feels better. Lab data today includes a white count of 17.9, hemoglobin 13.6, hematocrit 42.9, and a normal platelet count. D-dimer is 5.09 from yesterday. Sodium 134, potassium 4.4, chlorides 98, CO2 31, anion gap 5, BUN 18, creatinine 0.51. There was no chest x-ray today. CT angiogram was repeated and was negative for pulmonary embolism. Progress note dated 10/02/2021. The patient remains on AIRVO. The patient is again seen today in room 485. Currently, she is on 50 L/m, and an FiO2 of about 65%. The patient is not receiving any IV fluids. Each day, she states that she feels a bit better. Her primary issue is shortness of breath primarily on exertion, and a sharp cough. White count 20.8, hemoglobin 14.6, hematocrit 44.8, and platelet count 352,000. Sodium 134, potassium 4.5, chlorides 96, CO2 31, anion gap 7, BUN 20, creatinine 0.5. Chest x-ray shows diffuse lung infiltrates, and subcutaneous emphysema, essentially unchanged. Objective - Vital Signs Vital signs: Vital Signs Temp 97.8 F 10/02/21 10:00 Pulse 103 H 10/02/21 10:00 Resp 24 10/02/21 10:00 BP 127/82 10/02/21 10:00 Pulse Ox 91 L 10/02/21 11:29 Intake & Output 10/01/21 10/02/21 10/02/21 19:59 06:59 18:59 Other: # Voids # Bowel Movements - Exam No acute distress, oriented 3, Currently on AIRVO, at 50 L/m with an FiO2 of 65%. The patient's saturation is 94%. HEENT examination is grossly unremarkable. Neck supple. Full range of motion. No adenopathy thyromegaly or neck vein distention. Cardiovascular examination reveals regular rhythm rate. S1-S2 normal. No S3 or S4. No discernible murmur noted. Heart sounds are distant. Heart rate 103 bpm. Lungs reveal bilateral rhonchi. No wheezes or crackles. Breath sounds equal. Saturations on AIRVO are 94%. Abdomen soft bowel sounds are heard. No masses or tenderness. Extremities are intact. No cyanosis clubbing or edema. Skin is without rash or lesion. Neurologic examination is brief but nonfocal. - Labs CBC & Chem 7: 10/02/21 07:34 10/02/21 07:34 Labs: Abnormal Lab Results - Last 24 Hours (Table) 10/02/21 10/02/21 Range/Units 07:34 07:34 WBC 20.8 H (3.8-10.6) k/uL Neutrophils # 18.2 H (1.3-7.7) k/uL Sodium 134 L (137-145) mmol/L Chloride 96 L (98-107) mmol/L Carbon Dioxide 31 H (22-30) mmol/L BUN 20 H (7-17) mg/dL Creatinine 0.50 L (0.52-1.04) mg/dL Glucose 105 H (74-99) mg/dL ALT 42 H (4-34) U/L Albumin 3.2 L (3.5-5.0) g/dL Assessment and Plan Assessment: Acute hypoxemic respiratory failure secondary to coronavirus associated pneumonia. Diffuse subcutaneous emphysema and pneumomediastinum, without pneumothorax. Status post incomplete coronavirus vaccination. Elevated inflammatory marker secondary to coronavirus infection. No evidence of pulmonary embolism on CT angiogram, X 2. Plan: Plan dated 09/26/2021. The patient's chest x-rays reviewed. There is no obvious pneumothorax. There was subcutaneous emphysema and pneumomediastinum. The patient was placed on BiPAP. Currently, she is very stable with a saturation of 96%. There is no reason to transfer this patient to the intensive care unit, as requested by the supervising nurse on the fourth floor. This was discussed earlier with the nurse taking care of the patient. We will continue to follow and make recommendations where appropriate. Should there be a change in the patient's clinical status, we can reevaluate the patient at that time. Plan dated 09/27/2021. The patient appears to be about the same today as she was yesterday. She remains on BiPAP at 12/6, and 100%. Saturations are in the low to mid 90s. Her chest x-ray was reviewed and showed evidence of subcutaneous emphysema, and pneumomediastinum, no pneumothorax. The patient's on appropriate medications. We will continue to follow make recommendations were appropriate. She remains on vitamin C, vitamin D3, and zinc. In addition, she is on Lovenox, Decadron, and ALEXX. Prognosis is guarded. Plan dated 09/29/2021. The patient is progressing nicely in my opinion. The patient has been transitioned off the BiPAP onto heated high flow nasal oxygen/AIRVO. The chest x-ray continues to show diffuse bilateral infiltrates, subcutaneous emphysema, and pneumomediastinum without pneumothorax. There is no need to do blood work on this patient on a daily basis. The patient remains on vitamin C, vitamin D3, and zinc. In addition, the patient remains on Decadron, Lovenox, and ALEXX. We will continue to follow this patient make recommendations where appropriate. Prognosis is guarded. Plan dated 10/01/2021. The patient's doing well. Her AIRVO has been turned down to 60 L/m with an FiO2 of 70%. Her pulse ox readings are right around 93-94%. Clinically, she feels improved. The most recent x-rays and CAT scans of the chest show evidence of subcutaneous pneumomediastinum, without pneumothorax. The patient remains on appropriate medications including vitamin C, vitamin D3, zinc, Decadron, Lovenox, and ALEXX. We will continue to follow and make recommendations where appropriate. Plan dated 10/02/2021. The patient continues to improve slowly. We continue to titrate down her AIRVO. Currently, she is getting 50 L/m with an FiO2 of about 65%. Saturations are in the low 90s. Clinically she feels much improved. The chest x-ray is again reviewed, showing diffuse bilateral infiltrates, with subcutaneous emphysema. No obvious pneumothorax is seen. She remains on vitamin C, vitamin D3, zinc, Decadron, Lovenox, and ALEXX. We will continue to follow and make recommendations where appropriate. Time with Patient: Less than 30
--- NOTE | 2021-10-02 20:46 | PN ---
PROGRESS NOTE DATE OF SERVICE: 10/02/2021 REASON FOR FOLLOWUP: COVID-19 pneumonia. INTERVAL HISTORY: The patient is afebrile. She is breathing slightly comfortably. The patient denies having any chest pain or worsening cough or sputum production. No abdominal pain or diarrhea. PHYSICAL EXAMINATION: Blood pressure 124/84 with a pulse of 101, temperature 97.6. She is 89% on 66% FiO2. General description is a middle-aged female lying in bed in no distress. Respiratory system: Unlabored breathing, decreased intensity of breath sounds. No wheeze. Heart S1, S2. Regular rate and rhythm. Abdomen soft, no tenderness. Extremities no edema of the feet. LABS: Hemoglobin is 14, white count 20.8, creatinine 0.50. DIAGNOSTIC IMPRESSION AND PLAN: Patient with acute COVID-19 pneumonia. Patient's condition remains critical with minimal clinical improvement. Chest x-ray did not show any significant change. The patient is currently covered with baricitinib, dexamethasone, Lovenox, zinc and ascorbic acid; to continue along with respiratory support. Monitor clinical course closely. MMODL / IJN: [id number] /
[2021-10-03 08:40] LABS: Basophils # (A) 0.1 k/uL (0-0.2); Basophils % (A) 0 %; Eosinophils % (A) 0 %; HCT 46.5 % (34.0-46.0); HGB 14.8 gm/dL (11.4-16.0); Lymphocytes # (A) 1.4 k/uL (1.0-4.8); Lymphocytes % (A) 7 %; MCH 28.9 pg (25.0-35.0); MCHC 31.9 g/dL (31.0-37.0); MCV 90.8 fL (80.0-100.0); Mean Platelet Volume 8.4; Monocytes # (A) 0.8 k/uL (0-1.0); Monocytes % (A) 4 %; Neutrophils # (A) 18.4 k/uL (1.3-7.7); Neutrophils % (A) 88 %; Platelet Count 334 k/uL (150-450); RBC 5.12 m/uL (3.80-5.40); WBC 20.8 k/uL (3.8-10.6)
[2021-10-03] MEDS: CHOLECALCIFEROL 25 MCG (1000 IU) TABLET PO SCH (08:45)
[2021-10-03] MEDS: DEXAMETHASONE SOD PHOSPHATE 10 MG/ML 1 ML VIAL IVP SCH ×2 (08:46→21:30)
[2021-10-03] MEDS: ENOXAPARIN 40 MG/0.4 ML SYRINGE SQ SCH (08:46)
[2021-10-03] MEDS: ZINC SULFATE 220 MG CAP PO SCH (08:46)
[2021-10-03] MEDS: PSYLLIUM HUSK 100% 6 GM PACKET PO SCH (08:46)
[2021-10-03] MEDS: ASCORBIC ACID 500 MG TAB PO SCH ×2 (08:46→21:30)
[2021-10-03] MEDS: BARICITINIB 2 MG TABLET PO SCH (08:55)
[2021-10-03 08:56] LABS: African American GFR (CKD) >90 (>60 ml/min/1.73 sqM); Albumin 3.2 g/dL (3.5-5.0); Anion Gap 9 mmol/L; Blood Urea Nitrogen 25 mg/dL (7-17); Calcium 9.4 mg/dL (8.4-10.2); Carbon Dioxide 29 mmol/L (22-30); Chloride 97 mmol/L (98-107); Globulin 3.2 g/dL; Glucose 227 mg/dL (74-99); Non-African American GFR(CKD) >90 (>60 ml/min/1.73 sqM); Potassium 3.9 mmol/L (3.5-5.1); Sodium 135 mmol/L (137-145); Total Protein 6.4 g/dL (6.3-8.2)
[2021-10-03 08:57] LABS: ALT 47 U/L (4-34); AST 33 U/L (14-36); Alkaline Phosphatase 75 U/L (38-126); Total Bilirubin 0.6 mg/dL (0.2-1.3)
--- NOTE | 2021-10-03 13:42 | P.PN ---
Subjective Progress Note Date: 10/03/21 This is a 56-year-old female patient of Dr. Coffey with no significant medical history, who presented to the emergency department on 09/21/2021 for evaluation of worsening dyspnea, patient wears a apple Smart watch and when she checked her oxygen it was noted to be very low measuring 60-70%. She has been having a cough and a fever for about 1 week. She called her primary care doctor and was told to come into the emergency department. Patient denied any chest pain, patient was tested positive for COVID 19 On today's evaluation of 10/03/2021 the patient remains on high flow oxygen with Airvo with 15 L with an FiO2 of 60%. Pulse ox currently is at 89%. This is a case of coronary related pneumonia. The patient's has been doing limited progress over this past week. Chest x-ray showed diffuse bilateral pulmonary infiltrates consistent with overnight. Pneumonia. The patient also had evide nce of subcutaneous emphysema which has remained unchanged. Epigastric resume mainly seen on the left and in the neck area bilaterally. In terms of therapy, the patient has been maintained on a combination of Decadron 6 g IV every 12 hours and the patient is also on Baricitinib 4 mg by mouth on a daily basis. The patient is receiving Lovenox 40 mg subcu on a daily basis. In terms of inflammatory markers, the patient's LDH level was not been checked for the past 3 days. The last check showed a level of 1541 with a CRP of 5.7. He d-dimer was at 5.09. White cell count is at 20.8 with a hemoglobin of 14.8. Electrolytes are all within normal limits. Some mild transaminitis was noted. For the most part, her condition has remained stable for now. Objective - Vital Signs Vital signs: Vital Signs Temp 98.4 F 10/03/21 10:50 Pulse 87 10/03/21 10:50 Resp 26 H 10/03/21 10:50 BP 122/74 10/03/21 10:50 Pulse Ox 89 L 10/03/21 10:50 Intake & Output 10/02/21 10/03/21 10/03/21 18:59 06:59 18:59 Other: # Voids 1 2 - Exam No acute distress, oriented 3, Currently on AIRVO, at 50 L/m with an FiO2 of 65%. The patient's saturation is 94%. HEENT examination is grossly unremarkable. Neck supple. Full range of motion. No adenopathy thyromegaly or neck vein distention. Cardiovascular examination reveals regular rhythm rate. S1-S2 normal. No S3 or S4. No discernible murmur noted. Heart sounds are distant. Heart rate 103 bpm. Lungs reveal bilateral rhonchi. No wheezes or crackles. Breath sounds equal. Saturations on AIRVO are 94%. Abdomen soft bowel sounds are heard. No masses or tenderness. Extremities are intact. No cyanosis clubbing or edema. Skin is without rash or lesion. Neurologic examination is brief but nonfocal. - Labs CBC & Chem 7: 10/03/21 08:22 10/03/21 08:22 Labs: Abnormal Lab Results - Last 24 Hours (Table) 10/03/21 10/03/21 Range/Units 08:22 08:22 WBC 20.8 H (3.8-10.6) k/uL Hct 46.5 H (34.0-46.0) % Neutrophils # 18.4 H (1.3-7.7) k/uL Sodium 135 L (137-145) mmol/L Chloride 97 L (98-107) mmol/L BUN 25 H (7-17) mg/dL Glucose 227 H (74-99) mg/dL ALT 47 H (4-34) U/L Albumin 3.2 L (3.5-5.0) g/dL Assessment and Plan Plan: 1 Acute hypoxemic respiratory failure secondary to coronavirus associated pneumonia. The patient remains on a combination of Decadron and Baricitinib. No worsening in her oxygenation. The patient remains on high flow oxygen at 50 L with an FiO2 of 60%. The patient is also on Lovenox for DVT prophylaxis.No evidence of pulmonary embolism on CT angiogram, X 2. 2 Diffuse subcutaneous emphysema and pneumomediastinum, without pneumothorax. The subcutaneous emphysema stable for now 3 Status post incomplete coronavirus vaccination. 4 Elevated inflammatory marker secondary to coronavirus infection. The inflammatory markers need to be followed up Plan Recheck in the mother markers for tomorrow including d-dimer LVH and CRP. Continue the Decadron Continue Baricitinib Continue Lovenox Condition is stable we'll continue to follow. Chest x-ray was reviewed. There is evidence of subcutaneous emphysema which remains unchanged. I'm going to wean down the FiO2 down to 55%, keep the oxygen flow at 50 L
--- NOTE | 2021-10-03 18:43 | P.PN ---
Progress Note - Text Progress Note Date: 10/03/21 Chief Complaint: Short of breath This is a 56-year-old patient who follows with Dr. Coffey. Normally in good health. Was on taking any medications. Patient received off for short of posterior on it this year. Few minutes up to that she had developed a rash on the chest. Blood pressure was a bit high. Some tingling in the lips. There was no lip swelling no tongue swelling no choking no shortness of breath. Given this reaction she did not take the second dose of COVID shock. Patient for about a week has been getting progressively more short of breath. Having diarrhea for last 3 days. Everything tastes salty. Having. Slight headache. Has a dry cough. Her pulse ox at room has been off and on 84%. Poor appetite. Has been getting dizzy. She talk to her family doctor on videophone. He asked her to come in to the hospital. Patient tested positive for COVID 5 days ago. Tired and rundown. She been having some fevers. Admitted with COVID 19 pneumonitis, acute hypoxic respiratory failure. Started on dexamethasone, oxygen. IV fluids. Initially FiO2 increased to 6 L. Patient went out to use the BiPAP. This swished over to Airvo. Oral intake fluctuating. Also pneumomediastinum. Been followed conservatively . 09/29/2021: Remains short of breath. Changed over to Airvo. On 60 L and 90% FiO2. Decreased oral intake. Up in a recliner. Pneumomediastinum per chest x- ray/computed tomography scan. 09/30/2021: Short of breath. Recliner. On Airvo. 60 L and 94% FiO2. Eating some. Tired. 10/03/2021: Short of breath. In a recliner. Eating some. 89% on Airvo. 50 L and 60% FiO2. Baricitinib. Decadron Review of systems: Was done for constitutional, cardiovascular, GI, pulmonary. relevant finding as above Active Medications Acetaminophen (Acetaminophen Tab 325 Mg Tab) 650 mg PO Q6HR PRN PRN Reason: Mild Pain or Fever > 100.5 Last Admin: 09/21/21 21:59 Dose: 650 mg Documented by: Al Hydroxide/Mg Hydroxide (Mag Hydrox/Al Hydrox/Simeth 30 Ml Cup) 15 ml PO Q6HR PRN PRN Reason: Indigestion Alprazolam (Alprazolam 0.25 Mg Tab) 0.25 mg PO Q6HR PRN PRN Reason: Anxiety Ascorbic Acid (Ascorbic Acid 500 Mg Tab) 500 mg PO BID [facility] Last Admin: 10/03/21 08:46 Dose: 500 mg Documented by: Baricitinib (Baricitinib 2 Mg Tablet) 4 mg PO DAILY [facility] Stop: 10/09/21 09:59 Last Admin: 10/03/21 08:55 Dose: 4 mg Documented by: Calcium Carbonate/Glycine (Calcium Carbonate 500 Mg Chewable) 1,000 mg PO Q4HR PRN PRN Reason: Dyspepsia Cholecalciferol (Cholecalciferol 25 Mcg (1000 Iu) Tablet) 100 mcg PO DAILY [facility] Last Admin: 10/03/21 08:45 Dose: 100 mcg Documented by: Dexamethasone Sodium Phosphate (Dexamethasone Sod Phosphate 10 Mg/Ml 1 Ml Vial) 6 mg IVP BID [facility] Last Admin: 10/03/21 08:46 Dose: 6 mg Documented by: Enoxaparin Sodium (Enoxaparin 40 Mg/0.4 Ml Syringe) 40 mg SQ DAILY [facility] Last Admin: 10/03/21 08:46 Dose: 40 mg Documented by: Lactulose (Lactulose 20 Gm/30 Ml Cup) 20 gm PO DAILY PRN PRN Reason: Constipation Magnesium Hydroxide (Magnesium Hydroxide 2,400 Mg/10 Ml Cup) 2,400 mg PO DAILY PRN PRN Reason: Constipation Melatonin (Melatonin 3 Mg Tablet) 3 mg PO HS PRN PRN Reason: Insomnia Last Admin: 09/23/21 20:41 Dose: 3 mg Documented by: Naloxone HCl (Naloxone 0.4 Mg/Ml 1 Ml Vial) 0.2 mg IV Q2M PRN PRN Reason: Opioid Reversal Ondansetron HCl (Ondansetron 4 Mg/2 Ml Vial) 4 mg IVP Q8HR PRN PRN Reason: Nausea And Vomiting Psyllium Hydrophilic Mucilloid (Psyllium Husk 100% 6 Gm Packet) 6 gm PO DAILY [facility] Last Admin: 10/03/21 08:46 Dose: 6 gm Documented by: Zinc Sulfate (Zinc Sulfate 220 Mg Cap) 220 mg PO DAILY [facility] Last Admin: 10/03/21 08:46 Dose: 220 mg Documented by: Past medical history: Unremarkable Social history: Does not smoke or drink alcohol. . [employer]. Also home. Family history: Reviewed, noncontributory to presentation Physical examination: VITAL SIGNS: 98.2, 87, 17, 130/80, on Airvo 50/60 GENERAL: recliner, tired, short of breath LUNGS: Respiratory rate increased, . PSYCH: Alert and oriented x3; mood and affect tired NEUROLOGICAL: Cranial nerves grossly intact; no facial asymmetry, moving all her limbs Rest of the exam per pulmonary, nursing INVESTIGATIONS, reviewed in the clinical context: October 03: WBC 20.8 hemoglobin 14.8 potassium 3.9 creatinine 0.58 September 30: WBC 16 hemoglobin 13.3 d-dimer 5.09 potassium 4.3 BUN [address] chest [September 28]: Infiltrates, pneumomediastinum September 25: D-dimer 1.57 CRP 1.9 Chest x-ray film personally reviewed by me-[September 24]: Scattered infiltrates September 23: White count 11.3 hemoglobin 13.1 and platelets 210 d-dimer 0.5 to CRP 5.0 WBC 6.4 hemoglobin 14.2 platelets 142 d-dimer 0.81 potassium 4.2 BUN 16 creatinine 0.70 CRP 16.8 Chest x-ray film personally reviewed by me-bilateral infiltrates Assessment and plan: -Acute bilateral COVID 19 pneumonitis. Received her first dose of vaccine in November. Had ALLERGIC reaction and did not get the second short period patient's symptoms have been present for about a week: Not improving Dexamethasone. IV Remdesivir completed. IV Baricitinib -Acute hypoxic respiratory failure from COVID 19 pneumonitis.: Not improving On Airvo 60/90 -Pneumomediastinum Being followed by pulmonary -Sepsis from COVID 19 pneumonitis IV fluids -Thrombocytopenia from COVID 19: Better Follow CBC -Acute medical debility from COVID 19. -Possible mild COVID-19 hepatitis -Hypoalbuminemia, acute phase reactant Dexamethasone 6 mg twice a day, IV Remdesivir-completed. Airvo Incentive spirometry. Baricitinib . Discussed with the patient.
--- NOTE | 2021-10-03 23:04 | PN ---
PROGRESS NOTE DATE OF SERVICE: 10/03/2021 REASON FOR FOLLOWUP: COVID-19 pneumonia. INTERVAL HISTORY: The patient is afebrile. The patient is still requiring AIRVO to maintain her saturations. The patient denies having any chest pain or worsening cough. No vomiting. No abdominal pain or diarrhea. PHYSICAL EXAMINATION: Blood pressure 112/68 with a pulse of 64, temperature 98.3. She is 95% on 55% FiO2. General description is a middle-aged female lying in bed in no distress. Respiratory system: Unlabored breathing, decreased intensity of breath sounds. No wheeze. Heart S1, S2. Regular rate and rhythm. Abdomen soft, no tenderness. Extremities no edema of the feet. LABS: Hemoglobin is 14.9, white count 20.8, creatinine 0.58. DIAGNOSTIC IMPRESSION AND PLAN: Patient with acute respiratory failure secondary to COVID-19 pneumonia, currently on baricitinib, dexamethasone, Lovenox, zinc and ascorbic acid; to continue along with respiratory support. Elevated white count more likely steroid-related. We will monitor closely. Continue with supportive care. MMODL / IJN: [id number] /
[2021-10-04] MEDS: BARICITINIB 2 MG TABLET PO SCH (09:49)
[2021-10-04] MEDS: ENOXAPARIN 40 MG/0.4 ML SYRINGE SQ SCH (09:50)
[2021-10-04] MEDS: DEXAMETHASONE SOD PHOSPHATE 10 MG/ML 1 ML VIAL IVP SCH ×2 (09:50→22:23)
[2021-10-04] MEDS: ASCORBIC ACID 500 MG TAB PO SCH ×2 (09:50→22:23)
[2021-10-04] MEDS: ZINC SULFATE 220 MG CAP PO SCH (09:50)
[2021-10-04] MEDS: CHOLECALCIFEROL 25 MCG (1000 IU) TABLET PO SCH (09:50)
[2021-10-04] MEDS: PSYLLIUM HUSK 100% 6 GM PACKET PO SCH (09:51)
--- NOTE | 2021-10-04 13:09 | P.PN ---
Subjective Progress Note Date: 10/04/21 This is a 56-year-old female patient of Dr. Coffey with no significant medical history, who presented to the emergency department on 09/21/2021 for evaluation of worsening dyspnea, patient wears a apple Smart watch and when she checked her oxygen it was noted to be very low measuring 60-70%. She has been having a cough and a fever for about 1 week. She called her primary care doctor and was told to come into the emergency department. Patient denied any chest pain, patient was tested positive for COVID 19 On today's evaluation of 10/03/2021 the patient remains on high flow oxygen with Airvo with 15 L with an FiO2 of 60%. Pulse ox currently is at 89%. This is a case of coronary related pneumonia. The patient's has been doing limited progress over this past week. Chest x-ray showed diffuse bilateral pulmonary infiltrates consistent with overnight. Pneumonia. The patient also had evide nce of subcutaneous emphysema which has remained unchanged. Epigastric resume mainly seen on the left and in the neck area bilaterally. In terms of therapy, the patient has been maintained on a combination of Decadron 6 g IV every 12 hours and the patient is also on Baricitinib 4 mg by mouth on a daily basis. The patient is receiving Lovenox 40 mg subcu on a daily basis. In terms of inflammatory markers, the patient's LDH level was not been checked for the past 3 days. The last check showed a level of 1541 with a CRP of 5.7. He d-dimer was at 5.09. White cell count is at 20.8 with a hemoglobin of 14.8. Electrolytes are all within normal limits. Some mild transaminitis was noted. For the most part, her condition has remained stable for now. On 10/04/2021, the patient is being seen for a follow-up. The patient remains on Airvo at 55 L with an FiO2 of 60%. The patient has not shown any significant improvement since yesterday. Oxygenation remains borderline. Pulse ox is order of 91-90% on above-mentioned Airvo settings. In terms of his inflammatory markers, she has a d-dimer of 3.69 with an LDH level of 1305 with a CRP level of 1.8. The patient continues to be on Baricitinib and the patient is also on Decadron 6 mg IV every 12 hours. She is on Lovenox 40 mg subcu every 24 hours. The patient is otherwise stable. No altered mentation. No chest pain. No shortness of breath above and beyond her baseline. No nausea vomiting or diarrhea. No side effects and offer treatment. Patient is otherwise the same. No other significant events over the past 24 hours since her last evaluation. Her last chest x-ray was from 10/02/2021 and it showed bilateral pulmonary infiltrates consistent with community related pneumonia. Infiltrates are rather diffuse and it was some airspace changes bilaterally. Objective - Vital Signs Vital signs: Vital Signs Temp 98.6 F 10/04/21 11:33 Pulse 83 10/04/21 11:33 Resp 19 10/04/21 11:33 BP 124/80 10/04/21 11:33 Pulse Ox 91 L 10/04/21 11:33 Intake & Output 10/03/21 10/04/21 10/04/21 18:59 06:59 18:59 Weight 82.5 kg Other: Voiding Method Bedside Commode # Voids 2 5 - Exam No acute distress, oriented 3, Currently on AIRVO, at 55 L/m with an FiO2 of 60%. The patient's saturation is 91%. HEENT examination is grossly unremarkable. Neck supple. Full range of motion. No adenopathy thyromegaly or neck vein distention. Cardiovascular examination reveals regular rhythm rate. S1-S2 normal. No S3 or S4. No discernible murmur noted. Heart sounds are distant. Heart rate 103 bpm. Lungs reveal bilateral rhonchi. No wheezes or crackles. Breath sounds equal. Saturations on AIRVO are 94%. Abdomen soft bowel sounds are heard. No masses or tenderness. Extremities are intact. No cyanosis clubbing or edema. Skin is without rash or lesion. Neurologic examination is brief but nonfocal. - Labs CBC & Chem 7: 10/03/21 08:22 10/03/21 08:22 Labs: Abnormal Lab Results - Last 24 Hours (Table) 10/04/21 10/04/21 10/04/21 Range/Units 05:49 05:49 05:49 D-Dimer 3.69 H (<0.60) mg/L FEU Lactate Dehydrogenase 1305 H (313-618) U/L C-Reactive Protein 1.8 H (<1.0) mg/dL Assessment and Plan Plan: 1 Acute hypoxemic respiratory failure secondary to coronavirus associated pneumonia. The patient remains on a combination of Decadron and Baricitinib. No worsening in her oxygenation. The patient remains on high flow oxygen at 55 L with an FiO2 of 60%. The patient is also on Lovenox for DVT prophylaxis.No evidence of pulmonary embolism on CT angiogram, X 2. 2 Diffuse subcutaneous emphysema and pneumomediastinum, without pneumothorax. The subcutaneous emphysema stable for now 3 Status post incomplete coronavirus vaccination. 4 Elevated inflammatory marker secondary to coronavirus infection. The inflammatory markers need to be followed up Plan Recheck in the mother markers for tomorrow including d-dimer LVH and CRP. Continue the Decadron Continue Baricitinib Continue Lovenox Condition is stable we'll continue to follow. Chest x-ray was reviewed. There is evidence of subcutaneous emphysema which remains unchanged. Same settings on the high flow oxygen. The evaluate this patient and his condition is stable for now. I would say there is at least no interval worsening in her condition in general. We'll continue to follow. Monitor inflammatory markers. Monitor clinical progress. No need for repeat chest x- ray as long as her condition is stable.
--- NOTE | 2021-10-04 17:21 | P.PN ---
Progress Note - Text Progress Note Date: 10/04/21 Chief Complaint: Short of breath This is a 56-year-old patient who follows with Dr. Coffey. Normally in good health. Was on taking any medications. Patient received off for short of posterior on it this year. Few minutes up to that she had developed a rash on the chest. Blood pressure was a bit high. Some tingling in the lips. There was no lip swelling no tongue swelling no choking no shortness of breath. Given this reaction she did not take the second dose of COVID shock. Patient for about a week has been getting progressively more short of breath. Having diarrhea for last 3 days. Everything tastes salty. Having. Slight headache. Has a dry cough. Her pulse ox at room has been off and on 84%. Poor appetite. Has been getting dizzy. She talk to her family doctor on videophone. He asked her to come in to the hospital. Patient tested positive for COVID 5 days ago. Tired and rundown. She been having some fevers. Admitted with COVID 19 pneumonitis, acute hypoxic respiratory failure. Started on dexamethasone, oxygen. IV fluids. Initially FiO2 increased to 6 L. Patient went out to use the BiPAP. This swished over to Airvo. Oral intake fluctuating. Also pneumomediastinum. Been followed conservatively . 09/29/2021: Remains short of breath. Changed over to Airvo. On 60 L and 90% FiO2. Decreased oral intake. Up in a recliner. Pneumomediastinum per chest x- ray/computed tomography scan. 09/30/2021: Short of breath. Recliner. On Airvo. 60 L and 94% FiO2. Eating some. Tired. 10/03/2021: Short of breath. In a recliner. Eating some. 89% on Airvo. 50 L and 60% FiO2. Baricitinib. Decadron 10/04/2021: in recliner. Some shortness of breath. On Baricitinib. Decadron. Eating about 50-75%. Review of systems: Was done for constitutional, cardiovascular, GI, pulmonary. relevant finding as above Active Medications Acetaminophen (Acetaminophen Tab 325 Mg Tab) 650 mg PO Q6HR PRN PRN Reason: Mild Pain or Fever > 100.5 Last Admin: 09/21/21 21:59 Dose: 650 mg Documented by: Al Hydroxide/Mg Hydroxide (Mag Hydrox/Al Hydrox/Simeth 30 Ml Cup) 15 ml PO Q6HR PRN PRN Reason: Indigestion Alprazolam (Alprazolam 0.25 Mg Tab) 0.25 mg PO Q6HR PRN PRN Reason: Anxiety Ascorbic Acid (Ascorbic Acid 500 Mg Tab) 500 mg PO BID [facility] Last Admin: 10/04/21 09:50 Dose: 500 mg Documented by: Baricitinib (Baricitinib 2 Mg Tablet) 4 mg PO DAILY [facility] Stop: 10/09/21 09:59 Last Admin: 10/04/21 09:49 Dose: 4 mg Documented by: Calcium Carbonate/Glycine (Calcium Carbonate 500 Mg Chewable) 1,000 mg PO Q4HR PRN PRN Reason: Dyspepsia Cholecalciferol (Cholecalciferol 25 Mcg (1000 Iu) Tablet) 100 mcg PO DAILY [facility] Last Admin: 10/04/21 09:50 Dose: 100 mcg Documented by: Dexamethasone Sodium Phosphate (Dexamethasone Sod Phosphate 10 Mg/Ml 1 Ml Vial) 6 mg IVP BID [facility] Last Admin: 10/04/21 09:50 Dose: 6 mg Documented by: Enoxaparin Sodium (Enoxaparin 40 Mg/0.4 Ml Syringe) 40 mg SQ DAILY [facility] Last Admin: 10/04/21 09:50 Dose: 40 mg Documented by: Lactulose (Lactulose 20 Gm/30 Ml Cup) 20 gm PO DAILY PRN PRN Reason: Constipation Magnesium Hydroxide (Magnesium Hydroxide 2,400 Mg/10 Ml Cup) 2,400 mg PO DAILY PRN PRN Reason: Constipation Melatonin (Melatonin 3 Mg Tablet) 3 mg PO HS PRN PRN Reason: Insomnia Last Admin: 09/23/21 20:41 Dose: 3 mg Documented by: Naloxone HCl (Naloxone 0.4 Mg/Ml 1 Ml Vial) 0.2 mg IV Q2M PRN PRN Reason: Opioid Reversal Ondansetron HCl (Ondansetron 4 Mg/2 Ml Vial) 4 mg IVP Q8HR PRN PRN Reason: Nausea And Vomiting Psyllium Hydrophilic Mucilloid (Psyllium Husk 100% 6 Gm Packet) 6 gm PO DAILY [facility] Last Admin: 10/04/21 09:51 Dose: Not Given Documented by: Zinc Sulfate (Zinc Sulfate 220 Mg Cap) 220 mg PO DAILY [facility] Last Admin: 10/04/21 09:50 Dose: 220 mg Documented by: Past medical history: Unremarkable Social history: Does not smoke or drink alcohol. . 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 Family history: Reviewed, noncontributory to presentation Physical examination: VITAL SIGNS: 98.6, 83, 19, 124/80, 91% on Airvo 55/60 GENERAL: recliner, tired, short of breath LUNGS: Respiratory rate increased, . PSYCH: Alert and oriented x3; mood and affect tired NEUROLOGICAL: Cranial nerves grossly intact; no facial asymmetry, moving all her limbs Rest of the exam per pulmonary, nursing INVESTIGATIONS, reviewed in the clinical context: October 04: D-dimer 3.69 CRP 1.8 October 03: WBC 20.8 hemoglobin 14.8 potassium 3.9 creatinine 0.58 September 30: WBC 16 hemoglobin 13.3 d-dimer 5.09 potassium 4.3 BUN [address] chest [September 28]: Infiltrates, pneumomediastinum September 25: D-dimer 1.57 CRP 1.9 Chest x-ray film personally reviewed by me-[September 24]: Scattered infiltrates September 23: White count 11.3 hemoglobin 13.1 and platelets 210 d-dimer 0.5 to CRP 5.0 WBC 6.4 hemoglobin 14.2 platelets 142 d-dimer 0.81 potassium 4.2 BUN 16 creatinine 0.70 CRP 16.8 Chest x-ray film personally reviewed by me-bilateral infiltrates Assessment and plan: -Acute bilateral COVID 19 pneumonitis. Received her first dose of vaccine in November. Had ALLERGIC reaction and did not get the second short period patient's symptoms have been present for about a week: Slow to respond Dexamethasone. IV Remdesivir completed. IV Baricitinib -Acute hypoxic respiratory failure from COVID 19 pneumonitis.: Slow to respond On Airvo 55/90 -Pneumomediastinum Being followed by pulmonary -Sepsis from COVID 19 pneumonitis: Better Received IV fluids -Thrombocytopenia from COVID 19: Better Follow CBC -Acute medical debility from COVID 19. -Possible mild COVID-19 hepatitis -Hypoalbuminemia, acute phase reactant Dexamethasone 6 mg twice a day, IV Remdesivir-completed. Airvo Incentive spirometry. Baricitinib .
--- NOTE | 2021-10-04 23:54 | PN ---
PROGRESS NOTE DATE OF SERVICE: 10/04/2021 REASON FOR FOLLOWUP: COVID-19 pneumonia. INTERVAL HISTORY: The patient is afebrile. The patient is breathing slightly comfortably today. The patient denies having any chest pain. No worsening cough or sputum production. No abdominal pain or diarrhea. PHYSICAL EXAMINATION: Blood pressure is 107/62 with a pulse of 99, temperature 98.1. She is 91% on AIRVO. General description is a middle-aged female lying in bed in no distress. Respiratory system: Unlabored breathing, decreased intensity of breath sounds. No wheeze. Heart S1, S2. Regular rate and rhythm. Abdomen soft, no tenderness. LABS: D-dimer is 3.69. CRP is 1.8. DIAGNOSTIC IMPRESSION AND PLAN: Patient with acute COVID-19 pneumonia in this patient with slow clinical improvement. Patient is currently on baricitinib, dexamethasone, Lovenox, zinc and ascorbic acid; to continue along with respiratory support and monitor clinical course closely. MMODL / IJN: [id number] /
[2021-10-05] MEDS: DEXAMETHASONE SOD PHOSPHATE 10 MG/ML 1 ML VIAL IVP SCH ×2 (08:19→21:21)
[2021-10-05] MEDS: ENOXAPARIN 40 MG/0.4 ML SYRINGE SQ SCH (08:50)
[2021-10-05] MEDS: CHOLECALCIFEROL 25 MCG (1000 IU) TABLET PO SCH (08:50)
[2021-10-05] MEDS: PSYLLIUM HUSK 100% 6 GM PACKET PO SCH (08:50)
[2021-10-05] MEDS: ZINC SULFATE 220 MG CAP PO SCH (08:50)
[2021-10-05] MEDS: BARICITINIB 2 MG TABLET PO SCH (08:51)
[2021-10-05] MEDS: ASCORBIC ACID 500 MG TAB PO SCH ×2 (08:51→21:21)
--- NOTE | 2021-10-05 13:34 | P.PN ---
Progress Note - Text Progress Note Date: 10/05/21 Chief Complaint: Short of breath This is a 56-year-old patient who follows with Dr. Coffey. Normally in good health. Was on taking any medications. Patient received off for short of posterior on it this year. Few minutes up to that she had developed a rash on the chest. Blood pressure was a bit high. Some tingling in the lips. There was no lip swelling no tongue swelling no choking no shortness of breath. Given this reaction she did not take the second dose of COVID shock. Patient for about a week has been getting progressively more short of breath. Having diarrhea for last 3 days. Everything tastes salty. Having. Slight headache. Has a dry cough. Her pulse ox at room has been off and on 84%. Poor appetite. Has been getting dizzy. She talk to her family doctor on videophone. He asked her to come in to the hospital. Patient tested positive for COVID 5 days ago. Tired and rundown. She been having some fevers. Admitted with COVID 19 pneumonitis, acute hypoxic respiratory failure. Started on dexamethasone, oxygen. IV fluids. Initially FiO2 increased to 6 L. Patient went out to use the BiPAP. This swished over to Airvo. Oral intake fluctuating. Also pneumomediastinum. Been followed conservatively . 09/29/2021: Remains short of breath. Changed over to Airvo. On 60 L and 90% FiO2. Decreased oral intake. Up in a recliner. Pneumomediastinum per chest x- ray/computed tomography scan. 09/30/2021: Short of breath. Recliner. On Airvo. 60 L and 94% FiO2. Eating some. Tired. 10/03/2021: Short of breath. In a recliner. Eating some. 89% on Airvo. 50 L and 60% FiO2. Baricitinib. Decadron 10/04/2021: in recliner. Some shortness of breath. On Baricitinib. Decadron. Eating about 50-75%. 10/05/2021: Sitting in a recliner. Oral intake fair. On Baricitinib. Decadron. Using incentive spirometry. Review of systems: Was done for constitutional, cardiovascular, GI, pulmonary. relevant finding as above Active Medications Acetaminophen (Acetaminophen Tab 325 Mg Tab) 650 mg PO Q6HR PRN PRN Reason: Mild Pain or Fever > 100.5 Last Admin: 09/21/21 21:59 Dose: 650 mg Documented by: Al Hydroxide/Mg Hydroxide (Mag Hydrox/Al Hydrox/Simeth 30 Ml Cup) 15 ml PO Q6HR PRN PRN Reason: Indigestion Alprazolam (Alprazolam 0.25 Mg Tab) 0.25 mg PO Q6HR PRN PRN Reason: Anxiety Ascorbic Acid (Ascorbic Acid 500 Mg Tab) 500 mg PO BID [facility] Last Admin: 10/05/21 08:51 Dose: 500 mg Documented by: Baricitinib (Baricitinib 2 Mg Tablet) 4 mg PO DAILY [facility] Stop: 10/09/21 09:59 Last Admin: 10/05/21 08:51 Dose: 4 mg Documented by: Calcium Carbonate/Glycine (Calcium Carbonate 500 Mg Chewable) 1,000 mg PO Q4HR PRN PRN Reason: Dyspepsia Cholecalciferol (Cholecalciferol 25 Mcg (1000 Iu) Tablet) 100 mcg PO DAILY [facility] Last Admin: 10/05/21 08:50 Dose: 100 mcg Documented by: Dexamethasone Sodium Phosphate (Dexamethasone Sod Phosphate 10 Mg/Ml 1 Ml Vial) 6 mg IVP BID [facility] Last Admin: 10/05/21 08:19 Dose: 6 mg Documented by: Enoxaparin Sodium (Enoxaparin 40 Mg/0.4 Ml Syringe) 40 mg SQ DAILY [facility] Last Admin: 10/05/21 08:50 Dose: 40 mg Documented by: Lactulose (Lactulose 20 Gm/30 Ml Cup) 20 gm PO DAILY PRN PRN Reason: Constipation Magnesium Hydroxide (Magnesium Hydroxide 2,400 Mg/10 Ml Cup) 2,400 mg PO DAILY PRN PRN Reason: Constipation Melatonin (Melatonin 3 Mg Tablet) 3 mg PO HS PRN PRN Reason: Insomnia Last Admin: 09/23/21 20:41 Dose: 3 mg Documented by: Naloxone HCl (Naloxone 0.4 Mg/Ml 1 Ml Vial) 0.2 mg IV Q2M PRN PRN Reason: Opioid Reversal Ondansetron HCl (Ondansetron 4 Mg/2 Ml Vial) 4 mg IVP Q8HR PRN PRN Reason: Nausea And Vomiting Psyllium Hydrophilic Mucilloid (Psyllium Husk 100% 6 Gm Packet) 6 gm PO DAILY [facility] Last Admin: 10/05/21 08:50 Dose: 6 gm Documented by: Zinc Sulfate (Zinc Sulfate 220 Mg Cap) 220 mg PO DAILY [facility] Last Admin: 10/05/21 08:50 Dose: 220 mg Documented by: Past medical history: Unremarkable Social history: Does not smoke or drink alcohol. . 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 Family history: Reviewed, noncontributory to presentation Physical examination: VITAL SIGNS: 98, 107, 19, 118/65, 93% on Airvo 50/50 GENERAL: recliner, tired, short of breath LUNGS: Respiratory rate increased, . PSYCH: Alert and oriented x3; mood and affect tired NEUROLOGICAL: Cranial nerves grossly intact; no facial asymmetry, moving all her limbs Rest of the exam per pulmonary, nursing INVESTIGATIONS, reviewed in the clinical context: October 04: D-dimer 3.69 CRP 1.8 October 03: WBC 20.8 hemoglobin 14.8 potassium 3.9 creatinine 0.58 September 30: WBC 16 hemoglobin 13.3 d-dimer 5.09 potassium 4.3 BUN [address] chest [September 28]: Infiltrates, pneumomediastinum September 25: D-dimer 1.57 CRP 1.9 Chest x-ray film personally reviewed by me-[September 24]: Scattered infiltrates September 23: White count 11.3 hemoglobin 13.1 and platelets 210 d-dimer 0.5 to CRP 5.0 WBC 6.4 hemoglobin 14.2 platelets 142 d-dimer 0.81 potassium 4.2 BUN 16 creatinine 0.70 CRP 16.8 Chest x-ray film personally reviewed by me-bilateral infiltrates Assessment and plan: -Acute bilateral COVID 19 pneumonitis. Received her first dose of vaccine in November. Had ALLERGIC reaction and did not get the second short period patient's symptoms have been present for about a week: Slow to respond Dexamethasone. IV Remdesivir completed. By mouth Baricitinib -Acute hypoxic respiratory failure from COVID 19 pneumonitis.: Slow to respond On Airvo 50/50 -Pneumomediastinum Being followed by pulmonary -Sepsis from COVID 19 pneumonitis: Better Received IV fluids -Thrombocytopenia from COVID 19: Better Follow CBC -Acute medical debility from COVID 19. -Possible mild COVID-19 hepatitis -Hypoalbuminemia, acute phase reactant Dexamethasone 6 mg twice a day, IV Remdesivir-completed. Airvo Incentive spirometry. Baricitinib . Discussed with patient.
--- NOTE | 2021-10-05 15:05 | P.PN ---
Subjective Progress Note Date: 10/05/21 This is a 56-year-old female patient of Dr. Coffey with no significant medical history, who presented to the emergency department on 09/21/2021 for evaluation of worsening dyspnea, patient wears a apple Smart watch and when she checked her oxygen it was noted to be very low measuring 60-70%. She has been having a cough and a fever for about 1 week. She called her primary care doctor and was told to come into the emergency department. Patient denied any chest pain, patient was tested positive for COVID 19 On today's evaluation of 10/03/2021 the patient remains on high flow oxygen with Airvo with 15 L with an FiO2 of 60%. Pulse ox currently is at 89%. This is a case of coronary related pneumonia. The patient's has been doing limited progress over this past week. Chest x-ray showed diffuse bilateral pulmonary infiltrates consistent with overnight. Pneumonia. The patient also had evide nce of subcutaneous emphysema which has remained unchanged. Epigastric resume mainly seen on the left and in the neck area bilaterally. In terms of therapy, the patient has been maintained on a combination of Decadron 6 g IV every 12 hours and the patient is also on Baricitinib 4 mg by mouth on a daily basis. The patient is receiving Lovenox 40 mg subcu on a daily basis. In terms of inflammatory markers, the patient's LDH level was not been checked for the past 3 days. The last check showed a level of 1541 with a CRP of 5.7. He d-dimer was at 5.09. White cell count is at 20.8 with a hemoglobin of 14.8. Electrolytes are all within normal limits. Some mild transaminitis was noted. For the most part, her condition has remained stable for now. On 10/04/2021, the patient is being seen for a follow-up. The patient remains on Airvo at 55 L with an FiO2 of 60%. The patient has not shown any significant improvement since yesterday. Oxygenation remains borderline. Pulse ox is order of 91-90% on above-mentioned Airvo settings. In terms of his inflammatory markers, she has a d-dimer of 3.69 with an LDH level of 1305 with a CRP level of 1.8. The patient continues to be on Baricitinib and the patient is also on Decadron 6 mg IV every 12 hours. She is on Lovenox 40 mg subcu every 24 hours. The patient is otherwise stable. No altered mentation. No chest pain. No shortness of breath above and beyond her baseline. No nausea vomiting or diarrhea. No side effects and offer treatment. Patient is otherwise the same. No other significant events over the past 24 hours since her last evaluation. Her last chest x-ray was from 10/02/2021 and it showed bilateral pulmonary infiltrates consistent with community related pneumonia. Infiltrates are rather diffuse and it was some airspace changes bilaterally. on 10/05/2021, the patient is doing well. The patient is on Airvo and it has been weaned down to 50 L flow with an FiO2 of 50%. She is doing well and she doesn't have any significant chest distress at rest. She still essentially is with mobility. D-dimer is at 3.69. LDH level is 1003 on the 5 and a CRP level is at 1.8. No fever. No nausea or vomiting. No altered mentation. She is hemodynamically stable. The patient is being treated with a combination of Decadron and Baricitinib. Decadron is at 6 mg IV every 12 hours and she is also on Baricitinib at a dose of 4 mg by mouth daily. Number the culprit no significant sputum production. No chest tightness. No wheezing. She is able to tolerate the Airvo without any major difficulties. Objective - Vital Signs Vital signs: Vital Signs Temp 98 F 10/05/21 09:37 Pulse 107 H 10/05/21 09:37 Resp 19 10/05/21 09:37 BP 118/65 10/05/21 09:37 Pulse Ox 93 L 10/05/21 11:04 Intake & Output 10/04/21 10/05/21 10/05/21 18:59 06:59 18:59 Weight 82.5 kg Other: Voiding Method Bedside Commode Bedside Commode # Voids 3 3 # Bowel Movements 1 1 - Exam No acute distress, oriented 3, Currently on AIRVO, at 50 L with an FiO2 of 50% HEENT examination is grossly unremarkable. Neck supple. Full range of motion. No adenopathy thyromegaly or neck vein distention. Cardiovascular examination reveals regular rhythm rate. S1-S2 normal. No S3 or S4. No discernible murmur noted. Heart sounds are distant. Heart rate 103 bpm. Lungs reveal bilateral rhonchi. No wheezes or crackles. Breath sounds equal. Saturations on AIRVO are 94%. Abdomen soft bowel sounds are heard. No masses or tenderness. Extremities are intact. No cyanosis clubbing or edema. Skin is without rash or lesion. Neurologic examination is brief but nonfocal. - Labs CBC & Chem 7: 10/03/21 08:22 10/03/21 08:22 Assessment and Plan Plan: 1 Acute hypoxemic respiratory failure secondary to coronavirus associated pneumonia. The patient remains on a combination of Decadron and Baricitinib. No worsening in her oxygenation. The patient remains on high flow oxygen at 50 L with an FiO2 of 50 %. The patient is also on Lovenox for DVT prophylaxis.No evidence of pulmonary embolism on CT angiogram, X 2.. The patient is gradually improving. There has been a gradual wean the Airvo settings including the flow. 2 Diffuse subcutaneous emphysema and pneumomediastinum, without pneumothorax. The subcutaneous emphysema stable for now 3 Status post incomplete coronavirus vaccination. 4 Elevated inflammatory marker secondary to coronavirus infection. The inflammatory markers need to be followed up Plan Recheck in the mother markers for tomorrow including d-dimer LVH and CRP. Continue the Decadron Continue Baricitinib Continue Lovenox Condition is stable we'll continue to follow. Chest x-ray was reviewed. There is evidence of subcutaneous emphysema which remains unchanged. We'll gradually wean down the flow down to 45 L of possible. Continue the Decadron. Continue Baricitinib. Monitor in telemetry markers. Condition is stable for now.
--- NOTE | 2021-10-05 22:43 | PN ---
PROGRESS NOTE DATE OF SERVICE: 10/05/2021 REASON FOR FOLLOWUP: COVID-19 pneumonia. INTERVAL HISTORY: The patient is afebrile. The patient is breathing slightly comfortably. She is current down to 40% FiO2. Denies having any chest pain or worsening cough. No abdominal pain and no diarrhea. PHYSICAL EXAMINATION: Blood pressure 120/84, pulse of 85, temperature 98.3. She is 90% on 40% FiO2. General description is a middle-aged female lying in bed in no distress. Respiratory system: Unlabored breathing, decreased intensity of breath sounds. Heart S1, S2. Regular rate and rhythm. Abdomen soft, no tenderness. LABS: No new labs have been obtained today. DIAGNOSTIC IMPRESSION AND PLAN: Patient with acute COVID-19 pneumonia in this patient who seems to have shown some clinical improvement in her condition. Patient is currently covered with baricitinib, dexamethasone, Lovenox, zinc and ascorbic acid; to continue along with respiratory support. Monitor clinical course closely. MMODL / IJN: [id number] /
[2021-10-06] MEDS: DEXAMETHASONE SOD PHOSPHATE 10 MG/ML 1 ML VIAL IVP SCH (08:33)
[2021-10-06 09:31] LABS: Basophils % (A) 0 %; Eosinophils % (A) 0 %; HCT 45.4 % (34.0-46.0); HGB 14.3 gm/dL (11.4-16.0); Lymphocytes # (A) 1.8 k/uL (1.0-4.8); Lymphocytes % (A) 9 %; MCH 28.8 pg (25.0-35.0); MCHC 31.4 g/dL (31.0-37.0); MCV 91.5 fL (80.0-100.0); Mean Platelet Volume 8.8; Monocytes # (A) 0.9 k/uL (0-1.0); Monocytes % (A) 5 %; Neutrophils # (A) 17.1 k/uL (1.3-7.7); Neutrophils % (A) 85 %; Platelet Count 324 k/uL (150-450); RBC 4.96 m/uL (3.80-5.40); RDW 13.2 % (11.5-15.5); WBC 20.1 k/uL (3.8-10.6)
[2021-10-06] MEDS: PSYLLIUM HUSK 100% 6 GM PACKET PO SCH (09:33)
[2021-10-06] MEDS: ENOXAPARIN 40 MG/0.4 ML SYRINGE SQ SCH (09:33)
[2021-10-06] MEDS: CHOLECALCIFEROL 25 MCG (1000 IU) TABLET PO SCH (09:34)
[2021-10-06] MEDS: ZINC SULFATE 220 MG CAP PO SCH (09:34)
[2021-10-06] MEDS: BARICITINIB 2 MG TABLET PO SCH (09:34)
[2021-10-06] MEDS: ASCORBIC ACID 500 MG TAB PO SCH ×2 (09:34→21:42)
[2021-10-06 09:49] LABS: ALT 36 U/L (4-34); AST 23 U/L (14-36); African American GFR (CKD) >90 (>60 ml/min/1.73 sqM); Albumin 3.1 g/dL (3.5-5.0); Alkaline Phosphatase 61 U/L (38-126); Anion Gap 6 mmol/L; Blood Urea Nitrogen 26 mg/dL (7-17); Calcium 8.9 mg/dL (8.4-10.2); Carbon Dioxide 30 mmol/L (22-30); Chloride 97 mmol/L (98-107); Glucose 110 mg/dL (74-99); Non-African American GFR(CKD) >90 (>60 ml/min/1.73 sqM); Potassium 4.7 mmol/L (3.5-5.1); Sodium 133 mmol/L (137-145); Total Bilirubin 0.6 mg/dL (0.2-1.3); Total Protein 6.1 g/dL (6.3-8.2)
--- NOTE | 2021-10-06 16:02 | P.PN ---
Subjective Progress Note Date: 10/06/21 This is a 56-year-old female patient of Dr. Coffey with no significant medical history, who presented to the emergency department on 09/21/2021 for evaluation of worsening dyspnea, patient wears a apple Smart watch and when she checked her oxygen it was noted to be very low measuring 60-70%. She has been having a cough and a fever for about 1 week. She called her primary care doctor and was told to come into the emergency department. Patient denied any chest pain, patient was tested positive for COVID 19 On today's evaluation of 10/03/2021 the patient remains on high flow oxygen with Airvo with 15 L with an FiO2 of 60%. Pulse ox currently is at 89%. This is a case of coronary related pneumonia. The patient's has been doing limited progress over this past week. Chest x-ray showed diffuse bilateral pulmonary infiltrates consistent with overnight. Pneumonia. The patient also had evide nce of subcutaneous emphysema which has remained unchanged. Epigastric resume mainly seen on the left and in the neck area bilaterally. In terms of therapy, the patient has been maintained on a combination of Decadron 6 g IV every 12 hours and the patient is also on Baricitinib 4 mg by mouth on a daily basis. The patient is receiving Lovenox 40 mg subcu on a daily basis. In terms of inflammatory markers, the patient's LDH level was not been checked for the past 3 days. The last check showed a level of 1541 with a CRP of 5.7. He d-dimer was at 5.09. White cell count is at 20.8 with a hemoglobin of 14.8. Electrolytes are all within normal limits. Some mild transaminitis was noted. For the most part, her condition has remained stable for now. On 10/04/2021, the patient is being seen for a follow-up. The patient remains on Airvo at 55 L with an FiO2 of 60%. The patient has not shown any significant improvement since yesterday. Oxygenation remains borderline. Pulse ox is order of 91-90% on above-mentioned Airvo settings. In terms of his inflammatory markers, she has a d-dimer of 3.69 with an LDH level of 1305 with a CRP level of 1.8. The patient continues to be on Baricitinib and the patient is also on Decadron 6 mg IV every 12 hours. She is on Lovenox 40 mg subcu every 24 hours. The patient is otherwise stable. No altered mentation. No chest pain. No shortness of breath above and beyond her baseline. No nausea vomiting or diarrhea. No side effects and offer treatment. Patient is otherwise the same. No other significant events over the past 24 hours since her last evaluation. Her last chest x-ray was from 10/02/2021 and it showed bilateral pulmonary infiltrates consistent with community related pneumonia. Infiltrates are rather diffuse and it was some airspace changes bilaterally. on 10/05/2021, the patient is doing well. The patient is on Airvo and it has been weaned down to 50 L flow with an FiO2 of 50%. She is doing well and she doesn't have any significant chest distress at rest. She still essentially is with mobility. D-dimer is at 3.69. LDH level is 1003 on the 5 and a CRP level is at 1.8. No fever. No nausea or vomiting. No altered mentation. She is hemodynamically stable. The patient is being treated with a combination of Decadron and Baricitinib. Decadron is at 6 mg IV every 12 hours and she is also on Baricitinib at a dose of 4 mg by mouth daily. Number the culprit no significant sputum production. No chest tightness. No wheezing. She is able to tolerate the Airvo without any major difficulties. 10/06/2021 the patient remains on Airvo and she is currently on a 40 L with an FiO2 of 40%. Doing well. No specific complaints. Her oxygen flows being gradually weaned off. In terms of her blood work, the patient had a d-dimer of 3.69. LDH level was elevated above 1000 and her CRP was also elevated. N evertheless, these numbers are old. Clinically the patient is doing better. She remains on Decadron. She remains on Baricitinib. I'm going to cut down the Decadron to 6 mg every 24 hours. No nausea. No vomiting. No oropharyngeal candidiasis to no chest pain. No other significant events overnight. Her cough has also subsided. On today's evaluation, the white cell count is at 20.1. The patient also has a sodium level of 133, renal function is stable. Creatinine is stable. LDH is to be monitored and repeated in a.m. Objective - Vital Signs Vital signs: Vital Signs Temp 98.3 F 10/06/21 14:32 Pulse 90 10/06/21 14:32 Resp 18 10/06/21 14:32 BP 118/80 10/06/21 14:32 Pulse Ox 93 L 10/06/21 14:32 Intake & Output 10/05/21 10/06/21 10/06/21 18:59 06:59 18:59 Other: Voiding Method Bedside Commode Bedside Commode Bedside Commode # Voids 3 3 - Exam No acute distress, oriented 3, Currently on AIRVO, at 40 L with an FiO2 of 40% HEENT examination is grossly unremarkable. Neck supple. Full range of motion. No adenopathy thyromegaly or neck vein distention. Cardiovascular examination reveals regular rhythm rate. S1-S2 normal. No S3 or S4. No discernible murmur noted. Heart sounds are distant. bpm. Lungs reveal bilateral rhonchi. No wheezes or crackles. Breath sounds equal. Saturations on AIRVO are 94%. Abdomen soft bowel sounds are heard. No masses or tenderness. Extremities are intact. No cyanosis clubbing or edema. Skin is without rash or lesion. Neurologic examination is brief but nonfocal. - Labs CBC & Chem 7: 10/06/21 06:46 10/06/21 06:46 Labs: Abnormal Lab Results - Last 24 Hours (Table) 10/06/21 10/06/21 10/06/21 Range/Units 06:46 06:46 06:46 WBC 20.1 H (3.8-10.6) k/uL Neutrophils # 17.1 H (1.3-7.7) k/uL D-Dimer 1.79 H (<0.60) mg/L FEU Sodium 133 L (137-145) mmol/L Chloride 97 L (98-107) mmol/L BUN 26 H (7-17) mg/dL Glucose 110 H (74-99) mg/dL ALT 36 H (4-34) U/L Total Protein 6.1 L (6.3-8.2) g/dL Albumin 3.1 L (3.5-5.0) g/dL Assessment and Plan Plan: 1 Acute hypoxemic respiratory failure secondary to coronavirus associated pneumonia. The patient remains on a combination of Decadron and Baricitinib. No worsening in her oxygenation. The patient remains on high flow oxygen at 40 L with an FiO2 of 40 %. The patient is also on Lovenox for DVT prophylaxis.No evidence of pulmonary embolism on CT angiogram, X 2.. The patient is gradually improving. There has been a gradual wean the Airvo settings including the flow. 2 Diffuse subcutaneous emphysema and pneumomediastinum, without pneumothorax. The subcutaneous emphysema stable for now 3 Status post incomplete coronavirus vaccination. 4 Elevated inflammatory marker secondary to coronavirus infection. The inflammatory markers need to be followed up Plan Recheck in the mother markers for tomorrow including d-dimer LVH and CRP. Continue the Decadron and reduced the dose of Decadron to 6 mg every 24 hours Continue Baricitinib Continue Lovenox Condition is stable we'll continue to follow. Chest x-ray was reviewed. There is evidence of subcutaneous emphysema which remains unchanged. We'll gradually wean down the flow Condition is stable for now.
--- NOTE | 2021-10-06 16:07 | P.PN ---
Progress Note - Text Progress Note Date: 10/06/21 Chief Complaint: Short of breath This is a 56-year-old patient who follows with Dr. Coffey. Normally in good health. Was on taking any medications. Patient received off for short of posterior on it this year. Few minutes up to that she had developed a rash on the chest. Blood pressure was a bit high. Some tingling in the lips. There was no lip swelling no tongue swelling no choking no shortness of breath. Given this reaction she did not take the second dose of COVID shock. Patient for about a week has been getting progressively more short of breath. Having diarrhea for last 3 days. Everything tastes salty. Having. Slight headache. Has a dry cough. Her pulse ox at room has been off and on 84%. Poor appetite. Has been getting dizzy. She talk to her family doctor on videophone. He asked her to come in to the hospital. Patient tested positive for COVID 5 days ago. Tired and rundown. She been having some fevers. Admitted with COVID 19 pneumonitis, acute hypoxic respiratory failure. Started on dexamethasone, oxygen. IV fluids. Initially FiO2 increased to 6 L. Patient went out to use the BiPAP. This swished over to Airvo. Oral intake fluctuating. Also pneumomediastinum. Been followed conservatively . 09/29/2021: Remains short of breath. Changed over to Airvo. On 60 L and 90% FiO2. Decreased oral intake. Up in a recliner. Pneumomediastinum per chest x- ray/computed tomography scan. 09/30/2021: Short of breath. Recliner. On Airvo. 60 L and 94% FiO2. Eating some. Tired. 10/03/2021: Short of breath. In a recliner. Eating some. 89% on Airvo. 50 L and 60% FiO2. Baricitinib. Decadron 10/04/2021: in recliner. Some shortness of breath. On Baricitinib. Decadron. Eating about 50-75%. 10/05/2021: Sitting in a recliner. Oral intake fair. On Baricitinib. Decadron. Using incentive spirometry. 10/06/2021: On Airvo. Oral intake fair. Short of breath. Decadron. Baricitinib. Review of systems: Was done for constitutional, cardiovascular, GI, pulmonary. relevant finding as above Active Medications Acetaminophen (Acetaminophen Tab 325 Mg Tab) 650 mg PO Q6HR PRN PRN Reason: Mild Pain or Fever > 100.5 Last Admin: 09/21/21 21:59 Dose: 650 mg Documented by: Al Hydroxide/Mg Hydroxide (Mag Hydrox/Al Hydrox/Simeth 30 Ml Cup) 15 ml PO Q6HR PRN PRN Reason: Indigestion Alprazolam (Alprazolam 0.25 Mg Tab) 0.25 mg PO Q6HR PRN PRN Reason: Anxiety Ascorbic Acid (Ascorbic Acid 500 Mg Tab) 500 mg PO BID [facility] TO [facility] Last Admin: 10/06/21 09:34 Dose: 500 mg Documented by: Baricitinib (Baricitinib 2 Mg Tablet) 4 mg PO DAILY [facility] Stop: 10/09/21 09:59 Last Admin: 10/06/21 09:34 Dose: 4 mg Documented by: Calcium Carbonate/Glycine (Calcium Carbonate 500 Mg Chewable) 1,000 mg PO Q4HR PRN PRN Reason: Dyspepsia Cholecalciferol (Cholecalciferol 25 Mcg (1000 Iu) Tablet) 100 mcg PO DAILY [facility] Last Admin: 10/06/21 09:34 Dose: 100 mcg Documented by: Dexamethasone Sodium Phosphate (Dexamethasone Sod Phosphate 10 Mg/Ml 1 Ml Vial) 6 mg IVP DAILY [facility] Enoxaparin Sodium (Enoxaparin 40 Mg/0.4 Ml Syringe) 40 mg SQ DAILY [facility] Last Admin: 10/06/21 09:33 Dose: 40 mg Documented by: Lactulose (Lactulose 20 Gm/30 Ml Cup) 20 gm PO DAILY PRN PRN Reason: Constipation Magnesium Hydroxide (Magnesium Hydroxide 2,400 Mg/10 Ml Cup) 2,400 mg PO DAILY PRN PRN Reason: Constipation Melatonin (Melatonin 3 Mg Tablet) 3 mg PO HS PRN PRN Reason: Insomnia Last Admin: 09/23/21 20:41 Dose: 3 mg Documented by: Naloxone HCl (Naloxone 0.4 Mg/Ml 1 Ml Vial) 0.2 mg IV Q2M PRN PRN Reason: Opioid Reversal Ondansetron HCl (Ondansetron 4 Mg/2 Ml Vial) 4 mg IVP Q8HR PRN PRN Reason: Nausea And Vomiting Psyllium Hydrophilic Mucilloid (Psyllium Husk 100% 6 Gm Packet) 6 gm PO DAILY [facility] Last Admin: 10/06/21 09:33 Dose: 6 gm Documented by: Zinc Sulfate (Zinc Sulfate 220 Mg Cap) 220 mg PO DAILY [facility] Last Admin: 10/06/21 09:34 Dose: 220 mg Documented by: Past medical history: Unremarkable Social history: Does not smoke or drink alcohol. . 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 Family history: Reviewed, noncontributory to presentation Physical examination: VITAL SIGNS: 98.3, 90, 18, 118/80, 93% on Airvo 40/40 GENERAL: recliner, tired, short of breath LUNGS: Respiratory rate increased, . PSYCH: Alert and oriented x3; mood and affect tired NEUROLOGICAL: Cranial nerves grossly intact; no facial asymmetry, moving all her limbs Rest of the exam per pulmonary, nursing INVESTIGATIONS, reviewed in the clinical context: October 06: Count 20.1 hemoglobin 14.3 d-dimer 1.79 potassium 4.7 creatinine 0.56 sodium 133 October 04: D-dimer 3.69 CRP 1.8 October 03: WBC 20.8 hemoglobin 14.8 potassium 3.9 creatinine 0.58 September 30: WBC 16 hemoglobin 13.3 d-dimer 5.09 potassium 4.3 BUN [address] chest [September 28]: Infiltrates, pneumomediastinum September 25: D-dimer 1.57 CRP 1.9 Chest x-ray film personally reviewed by me-[September 24]: Scattered infiltrates September 23: White count 11.3 hemoglobin 13.1 and platelets 210 d-dimer 0.5 to CRP 5.0 WBC 6.4 hemoglobin 14.2 platelets 142 d-dimer 0.81 potassium 4.2 BUN 16 creatinine 0.70 CRP 16.8 Chest x-ray film personally reviewed by me-bilateral infiltrates Assessment and plan: -Acute bilateral COVID 19 pneumonitis. Received her first dose of vaccine in November. Had ALLERGIC reaction and did not get the second short period patient's symptoms have been present for about a week: Slowly improving Dexamethasone. IV Remdesivir completed. By mouth Baricitinib -Acute hypoxic respiratory failure from COVID 19 pneumonitis.: Slow to respond On Airvo 40/40 -Pneumomediastinum Being followed by pulmonary -Sepsis from COVID 19 pneumonitis: Better Received IV fluids -Thrombocytopenia from COVID 19: Better Follow CBC -Acute medical debility from COVID 19. -Possible mild COVID-19 hepatitis -Hypoalbuminemia, acute phase reactant -Mild hyponatremia Encourage oral intake Dexamethasone 6 mg twice a day, IV Remdesivir-completed. Airvo Incentive spirometry. Baricitinib . Discussed with patient.
--- NOTE | 2021-10-06 23:11 | PN ---
PROGRESS NOTE DATE OF SERVICE: 10/06/2021 REASON FOR FOLLOWUP: COVID-19 pneumonia. INTERVAL HISTORY: The patient is afebrile. The patient is breathing slightly comfortably. The patient is down to 40% FiO2. The patient denies having any chest pain or worsening cough. No abdominal pain or diarrhea. PHYSICAL EXAMINATION: Blood pressure 120/81, pulse of 69, temperature 97.9. She is 94% on 40% FiO2. General description is a middle-aged female lying in bed in no distress. Respiratory system: Unlabored breathing, some coarse breath sounds in the bases. No wheeze. Heart S1, S2. Regular rate and rhythm. Abdomen soft, no tenderness. LABS: Hemoglobin is 14.3, white count 20 with BUN of 26, creatinine 0.56. DIAGNOSTIC IMPRESSION AND PLAN: 1. Patient with acute COVID-19 pneumonia, some clinical improvement. Patient to continue with baricitinib, dexamethasone, Lovenox, zinc and ascorbic acid. 2. Elevated white count, more likely steroid effect. No evidence of any secondary bacterial pneumonia. Continue with supportive care. MMODL / IJN: [id number] /
[2021-10-07 09:04] LABS: Basophils # (A) 0.1 k/uL (0-0.2); Basophils % (A) 0 %; Eosinophils # (A) 0.3 k/uL (0-0.7); Eosinophils % (A) 2 %; HCT 47.1 % (34.0-46.0); HGB 14.7 gm/dL (11.4-16.0); Lymphocytes # (A) 3.1 k/uL (1.0-4.8); Lymphocytes % (A) 17 %; MCH 28.5 pg (25.0-35.0); MCHC 31.2 g/dL (31.0-37.0); MCV 91.5 fL (80.0-100.0); Mean Platelet Volume 8.5; Monocytes # (A) 0.8 k/uL (0-1.0); Monocytes % (A) 4 %; Neutrophils # (A) 14.2 k/uL (1.3-7.7); Neutrophils % (A) 76 %; Platelet Count 328 k/uL (150-450); RBC 5.15 m/uL (3.80-5.40); RDW 13.2 % (11.5-15.5); WBC 18.7 k/uL (3.8-10.6)
[2021-10-07] MEDS: ASCORBIC ACID 500 MG TAB PO SCH ×2 (09:10→21:04)
[2021-10-07] MEDS: DEXAMETHASONE SOD PHOSPHATE 10 MG/ML 1 ML VIAL IVP SCH (09:10)
[2021-10-07] MEDS: ENOXAPARIN 40 MG/0.4 ML SYRINGE SQ SCH (09:10)
[2021-10-07] MEDS: ZINC SULFATE 220 MG CAP PO SCH (09:10)
[2021-10-07] MEDS: BARICITINIB 2 MG TABLET PO SCH (09:10)
[2021-10-07] MEDS: CHOLECALCIFEROL 25 MCG (1000 IU) TABLET PO SCH (09:10)
[2021-10-07] MEDS: PSYLLIUM HUSK 100% 6 GM PACKET PO SCH (09:31)
[2021-10-07 09:43] LABS: ALT 33 U/L (4-34); AST 25 U/L (14-36); African American GFR (CKD) >90 (>60 ml/min/1.73 sqM); Alkaline Phosphatase 54 U/L (38-126); Anion Gap 8 mmol/L; Blood Urea Nitrogen 28 mg/dL (7-17); Calcium 9.1 mg/dL (8.4-10.2); Carbon Dioxide 27 mmol/L (22-30); Chloride 98 mmol/L (98-107); Globulin 2.9 g/dL; Glucose 162 mg/dL (74-99); LDH 962 U/L (313-618); Non-African American GFR(CKD) >90 (>60 ml/min/1.73 sqM); Potassium 3.8 mmol/L (3.5-5.1); Sodium 133 mmol/L (137-145); Total Bilirubin 0.6 mg/dL (0.2-1.3); Total Protein 5.9 g/dL (6.3-8.2)
[2021-10-07 10:15] LABS: C Reactive Protein <0.5 mg/dL (<1.0)
--- NOTE | 2021-10-07 15:08 | P.PN ---
Progress Note - Text Progress Note Date: 10/07/21 Chief Complaint: Short of breath This is a 56-year-old patient who follows with Dr. Coffey. Normally in good health. Was on taking any medications. Patient received off for short of posterior on it this year. Few minutes up to that she had developed a rash on the chest. Blood pressure was a bit high. Some tingling in the lips. There was no lip swelling no tongue swelling no choking no shortness of breath. Given this reaction she did not take the second dose of COVID shock. Patient for about a week has been getting progressively more short of breath. Having diarrhea for last 3 days. Everything tastes salty. Having. Slight headache. Has a dry cough. Her pulse ox at room has been off and on 84%. Poor appetite. Has been getting dizzy. She talk to her family doctor on videophone. He asked her to come in to the hospital. Patient tested positive for COVID 5 days ago. Tired and rundown. She been having some fevers. Admitted with COVID 19 pneumonitis, acute hypoxic respiratory failure. Started on dexamethasone, oxygen. IV fluids. Initially FiO2 increased to 6 L. Patient went out to use the BiPAP. This swished over to Airvo. Oral intake fluctuating. Also pneumomediastinum. Been followed conservatively . 09/29/2021: Remains short of breath. Changed over to Airvo. On 60 L and 90% FiO2. Decreased oral intake. Up in a recliner. Pneumomediastinum per chest x- ray/computed tomography scan. 09/30/2021: Short of breath. Recliner. On Airvo. 60 L and 94% FiO2. Eating some. Tired. 10/03/2021: Short of breath. In a recliner. Eating some. 89% on Airvo. 50 L and 60% FiO2. Baricitinib. Decadron 10/04/2021: in recliner. Some shortness of breath. On Baricitinib. Decadron. Eating about 50-75%. 10/05/2021: Sitting in a recliner. Oral intake fair. On Baricitinib. Decadron. Using incentive spirometry. 10/06/2021: On Airvo. Oral intake fair. Short of breath. Decadron. Baricitinib. 10/07/2021: On recliner. Eating fair. Some shortness of breath. Review of systems: Was done for constitutional, cardiovascular, GI, pulmonary. relevant finding as above Active Medications Acetaminophen (Acetaminophen Tab 325 Mg Tab) 650 mg PO Q6HR PRN PRN Reason: Mild Pain or Fever > 100.5 Last Admin: 09/21/21 21:59 Dose: 650 mg Documented by: Al Hydroxide/Mg Hydroxide (Mag Hydrox/Al Hydrox/Simeth 30 Ml Cup) 15 ml PO Q6HR PRN PRN Reason: Indigestion Alprazolam (Alprazolam 0.25 Mg Tab) 0.25 mg PO Q6HR PRN PRN Reason: Anxiety Ascorbic Acid (Ascorbic Acid 500 Mg Tab) 500 mg PO BID [facility] Last Admin: 10/07/21 09:10 Dose: 500 mg Documented by: Baricitinib (Baricitinib 2 Mg Tablet) 4 mg PO DAILY [facility] Stop: 10/09/21 09:59 Last Admin: 10/07/21 09:10 Dose: 4 mg Documented by: Calcium Carbonate/Glycine (Calcium Carbonate 500 Mg Chewable) 1,000 mg PO Q4HR PRN PRN Reason: Dyspepsia Cholecalciferol (Cholecalciferol 25 Mcg (1000 Iu) Tablet) 100 mcg PO DAILY [facility] Last Admin: 10/07/21 09:10 Dose: 100 mcg Documented by: Dexamethasone Sodium Phosphate (Dexamethasone Sod Phosphate 10 Mg/Ml 1 Ml Vial) 6 mg IVP DAILY [facility] Last Admin: 10/07/21 09:10 Dose: 6 mg Documented by: Enoxaparin Sodium (Enoxaparin 40 Mg/0.4 Ml Syringe) 40 mg SQ DAILY [facility] Last Admin: 10/07/21 09:10 Dose: 40 mg Documented by: Lactulose (Lactulose 20 Gm/30 Ml Cup) 20 gm PO DAILY PRN PRN Reason: Constipation Magnesium Hydroxide (Magnesium Hydroxide 2,400 Mg/10 Ml Cup) 2,400 mg PO DAILY PRN PRN Reason: Constipation Melatonin (Melatonin 3 Mg Tablet) 3 mg PO HS PRN PRN Reason: Insomnia Last Admin: 09/23/21 20:41 Dose: 3 mg Documented by: Naloxone HCl (Naloxone 0.4 Mg/Ml 1 Ml Vial) 0.2 mg IV Q2M PRN PRN Reason: Opioid Reversal Ondansetron HCl (Ondansetron 4 Mg/2 Ml Vial) 4 mg IVP Q8HR PRN PRN Reason: Nausea And Vomiting Psyllium Hydrophilic Mucilloid (Psyllium Husk 100% 6 Gm Packet) 6 gm PO DAILY [facility] Last Admin: 10/07/21 09:31 Dose: 6 gm Documented by: Zinc Sulfate (Zinc Sulfate 220 Mg Cap) 220 mg PO DAILY [facility] Last Admin: 10/07/21 09:10 Dose: 220 mg Documented by: Past medical history: Unremarkable Social history: Does not smoke or drink alcohol. . 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 Family history: Reviewed, noncontributory to presentation Physical examination: VITAL SIGNS: 98.6, 91, 22, 10 7 x 73, 94% on Airvo 40/40 GENERAL: recliner, , short of breath LUNGS: Respiratory rate increased, . PSYCH: Alert and oriented x3; mood and affect tired NEUROLOGICAL: Cranial nerves grossly intact; no facial asymmetry, moving all her limbs Rest of the exam per pulmonary, nursing INVESTIGATIONS, reviewed in the clinical context: October 07: White count 18.7 hemoglobin 14.7 d-dimer 1.99 potassium 3.8 creatinine 0.58 CRP less than 0.5 October 06: Count 20.1 hemoglobin 14.3 d-dimer 1.79 potassium 4.7 creatinine 0.56 sodium 133 October 04: D-dimer 3.69 CRP 1.8 October 03: WBC 20.8 hemoglobin 14.8 potassium 3.9 creatinine 0.58 September 30: WBC 16 hemoglobin 13.3 d-dimer 5.09 potassium 4.3 BUN [address] chest [September 28]: Infiltrates, pneumomediastinum September 25: D-dimer 1.57 CRP 1.9 Chest x-ray film personally reviewed by me-[September 24]: Scattered infiltrates September 23: White count 11.3 hemoglobin 13.1 and platelets 210 d-dimer 0.5 to CRP 5.0 WBC 6.4 hemoglobin 14.2 platelets 142 d-dimer 0.81 potassium 4.2 BUN 16 creatinine 0.70 CRP 16.8 Chest x-ray film personally reviewed by me-bilateral infiltrates Assessment and plan: -Acute bilateral COVID 19 pneumonitis. Received her first dose of vaccine in November. Had ALLERGIC reaction and did not get the second short period patient's symptoms have been present for about a week: Slowly improving Dexamethasone. IV Remdesivir completed. PO Baricitinib -Acute hypoxic respiratory failure from COVID 19 pneumonitis.: Slow to respond On Airvo 40/40 -Pneumomediastinum Being followed by pulmonary -Sepsis from COVID 19 pneumonitis: Better Received IV fluids -Thrombocytopenia from COVID 19: Better Follow CBC -Acute medical debility from COVID 19. -Possible mild COVID-19 hepatitis -Hypoalbuminemia, acute phase reactant -Mild hyponatremia Encourage oral intake Dexamethasone 6 mg a day, IV Remdesivir-completed. Airvo Incentive spirometry. Baricitinib . Discussed with patient.
--- NOTE | 2021-10-07 15:11 | P.PN ---
Subjective Progress Note Date: 10/07/21 This is a 56-year-old female patient of Dr. Coffey with no significant medical history, who presented to the emergency department on 09/21/2021 for evaluation of worsening dyspnea, patient wears a apple Smart watch and when she checked her oxygen it was noted to be very low measuring 60-70%. She has been having a cough and a fever for about 1 week. She called her primary care doctor and was told to come into the emergency department. Patient denied any chest pain, patient was tested positive for COVID 19 On today's evaluation of 10/03/2021 the patient remains on high flow oxygen with Airvo with 15 L with an FiO2 of 60%. Pulse ox currently is at 89%. This is a case of coronary related pneumonia. The patient's has been doing limited progress over this past week. Chest x-ray showed diffuse bilateral pulmonary infiltrates consistent with overnight. Pneumonia. The patient also had evide nce of subcutaneous emphysema which has remained unchanged. Epigastric resume mainly seen on the left and in the neck area bilaterally. In terms of therapy, the patient has been maintained on a combination of Decadron 6 g IV every 12 hours and the patient is also on Baricitinib 4 mg by mouth on a daily basis. The patient is receiving Lovenox 40 mg subcu on a daily basis. In terms of inflammatory markers, the patient's LDH level was not been checked for the past 3 days. The last check showed a level of 1541 with a CRP of 5.7. He d-dimer was at 5.09. White cell count is at 20.8 with a hemoglobin of 14.8. Electrolytes are all within normal limits. Some mild transaminitis was noted. For the most part, her condition has remained stable for now. On 10/04/2021, the patient is being seen for a follow-up. The patient remains on Airvo at 55 L with an FiO2 of 60%. The patient has not shown any significant improvement since yesterday. Oxygenation remains borderline. Pulse ox is order of 91-90% on above-mentioned Airvo settings. In terms of his inflammatory markers, she has a d-dimer of 3.69 with an LDH level of 1305 with a CRP level of 1.8. The patient continues to be on Baricitinib and the patient is also on Decadron 6 mg IV every 12 hours. She is on Lovenox 40 mg subcu every 24 hours. The patient is otherwise stable. No altered mentation. No chest pain. No shortness of breath above and beyond her baseline. No nausea vomiting or diarrhea. No side effects and offer treatment. Patient is otherwise the same. No other significant events over the past 24 hours since her last evaluation. Her last chest x-ray was from 10/02/2021 and it showed bilateral pulmonary infiltrates consistent with community related pneumonia. Infiltrates are rather diffuse and it was some airspace changes bilaterally. on 10/05/2021, the patient is doing well. The patient is on Airvo and it has been weaned down to 50 L flow with an FiO2 of 50%. She is doing well and she doesn't have any significant chest distress at rest. She still essentially is with mobility. D-dimer is at 3.69. LDH level is 1003 on the 5 and a CRP level is at 1.8. No fever. No nausea or vomiting. No altered mentation. She is hemodynamically stable. The patient is being treated with a combination of Decadron and Baricitinib. Decadron is at 6 mg IV every 12 hours and she is also on Baricitinib at a dose of 4 mg by mouth daily. Number the culprit no significant sputum production. No chest tightness. No wheezing. She is able to tolerate the Airvo without any major difficulties. 10/06/2021 the patient remains on Airvo and she is currently on a 40 L with an FiO2 of 40%. Doing well. No specific complaints. Her oxygen flows being gradually weaned off. In terms of her blood work, the patient had a d-dimer of 3.69. LDH level was elevated above 1000 and her CRP was also elevated. N evertheless, these numbers are old. Clinically the patient is doing better. She remains on Decadron. She remains on Baricitinib. I'm going to cut down the Decadron to 6 mg every 24 hours. No nausea. No vomiting. No oropharyngeal candidiasis to no chest pain. No other significant events overnight. Her cough has also subsided. On today's evaluation, the white cell count is at 20.1. The patient also has a sodium level of 133, renal function is stable. Creatinine is stable. LDH is to be monitored and repeated in a.m. 10/07/2021, the patient remains on the same Airvo setting which is 40 L with an FiO2 of 40%. Doing essentially the same and her pulse ox is ranging between 90- 94%. No much room for further weaning. We can try to drop the flow slightly lower at a later stage. Otherwise, she is afebrile. Blood work shows no significant abnormalities. White cell count is low at 18.7. Hemoglobin is at 14.7. D-dimer is at 1.99. Sodium level is at 133. BNP is a 28 with a crea tinine of 0.5. LDH level is lower at 962 and the CRP is less than 0.5. No other significant events overnight. She is sitting up on a recliner. She is still continuing continuing to take a combination of Decadron which is currently at 6 mg IV every day and Baricitinib 4 mg by mouth daily. She remains on anticoagulation with Lovenox 40 mgSC daily U daily. Objective - Vital Signs Vital signs: Vital Signs Temp 98.6 F 10/07/21 13:00 Pulse 91 10/07/21 13:00 Resp 22 10/07/21 13:00 BP 107/73 10/07/21 13:00 Pulse Ox 94 L 10/07/21 13:00 Intake & Output 10/06/21 10/07/21 10/07/21 18:59 06:59 18:59 Intake Total 1000 Balance 1000 Intake: Oral 1000 Other: Voiding Method Bedside Commode Bedside Commode # Voids 3 - Exam No acute distress, oriented 3, Currently on AIRVO, at 40 L with an FiO2 of 40% HEENT examination is grossly unremarkable. Neck supple. Full range of motion. No adenopathy thyromegaly or neck vein distention. Cardiovascular examination reveals regular rhythm rate. S1-S2 normal. No S3 or S4. No discernible murmur noted. Heart sounds are distant. bpm. Lungs reveal bilateral rhonchi. No wheezes or crackles. Breath sounds equal. Saturations on AIRVO are 94%. Abdomen soft bowel sounds are heard. No masses or tenderness. Extremities are intact. No cyanosis clubbing or edema. Skin is without rash or lesion. Neurologic examination is brief but nonfocal. - Labs CBC & Chem 7: 10/07/21 08:35 10/07/21 08:35 Labs: Abnormal Lab Results - Last 24 Hours (Table) 10/07/21 10/07/21 10/07/21 Range/Units 08:35 08:35 08:35 WBC 18.7 H (3.8-10.6) k/uL Hct 47.1 H (34.0-46.0) % Neutrophils # 14.2 H (1.3-7.7) k/uL D-Dimer 1.99 H (<0.60) mg/L FEU Sodium 133 L (137-145) mmol/L BUN 28 H (7-17) mg/dL Glucose 162 H (74-99) mg/dL Lactate Dehydrogenase 962 H (313-618) U/L Total Protein 5.9 L (6.3-8.2) g/dL Albumin 3.0 L (3.5-5.0) g/dL Assessment and Plan Plan: 1 Acute hypoxemic respiratory failure secondary to coronavirus associated pneumonia. The patient remains on a combination of Decadron and Baricitinib. No worsening in her oxygenation. The patient remains on high flow oxygen at 40 L with an FiO2 of 40 %. The patient is also on Lovenox for DVT prophylaxis.No evidence of pulmonary embolism on CT angiogram, X 2.. The patient is gradually improving. There has been a gradual wean the Airvo settings including the flow. 2 Diffuse subcutaneous emphysema and pneumomediastinum, without pneumothorax. The subcutaneous emphysema stable for now 3 Status post incomplete coronavirus vaccination. 4 Elevated inflammatory marker secondary to coronavirus infection. The inflammatory markers need to be followed up Plan stable, we'll try to cut down the flow down to 35 L Inflammatory markers are all improving Keep the FiO2 of 40% Recheck in the mother markers for tomorrow including d-dimer LVH and CRP. Continue the Decadron and reduced the dose of Decadron to 6 mg every 24 hours Continue Baricitinib Continue Lovenox Condition is stable we'll continue to follow. Chest x-ray was reviewed. T We'll gradually wean down the flow Condition is stable for now.
--- NOTE | 2021-10-07 18:31 | PN ---
PROGRESS NOTE DATE OF SERVICE: 10/07/2021 REASON FOR FOLLOWUP: COVID-19 pneumonia. INTERVAL HISTORY: The patient is afebrile. She is breathing slightly comfortably; still requiring about 40% FiO2 . Denies having any chest pain. No worsening cough or sputum production. No abdominal pain or diarrhea. PHYSICAL EXAMINATION: Blood pressure 107/73 with a pulse of 91, temperature 98.6. She is 94% on 40% FiO2. General description is a middle-aged female up in the bed in no distress. Respiratory system: Unlabored breathing, decreased intensity of breath sounds. No wheeze. Heart S1, S2. Regular rate and rhythm. Abdomen soft, no tenderness. LABS: Hemoglobin is 14. , white count creatinine 0.53. DIAGNOSTIC IMPRESSION AND PLAN: 1. Patient with acute COVID-19 pneumonia in this patient who is currently on baricitinib, dexamethasone, Lovenox, zinc and ascorbic acid. To continue and monitor clinical course closely. Continue with supportive care. 2. Elevated white count, more likely steroid effect, and seems to be on a downward trend. Will cut down the dose of the steroid. Continue with supportive care. MMODL / IJN: [id number] /
[2021-10-08 07:08] LABS: Basophils % (A) 0 %; Eosinophils # (A) 0.3 k/uL (0-0.7); Eosinophils % (A) 2 %; HCT 43.4 % (34.0-46.0); HGB 13.7 gm/dL (11.4-16.0); Lymphocytes # (A) 2.8 k/uL (1.0-4.8); Lymphocytes % (A) 16 %; MCH 28.6 pg (25.0-35.0); MCHC 31.6 g/dL (31.0-37.0); MCV 90.5 fL (80.0-100.0); Mean Platelet Volume 8.4; Monocytes # (A) 1.3 k/uL (0-1.0); Monocytes % (A) 7 %; Neutrophils # (A) 13.3 k/uL (1.3-7.7); Neutrophils % (A) 74 %; Platelet Count 297 k/uL (150-450); RDW 13.1 % (11.5-15.5)
[2021-10-08 07:14] LABS: ALT 29 U/L (4-34); AST 22 U/L (14-36); African American GFR (CKD) >90 (>60 ml/min/1.73 sqM); Albumin 2.8 g/dL (3.5-5.0); Albumin/Globulin Ratio 1.1; Alkaline Phosphatase 49 U/L (38-126); Anion Gap 5 mmol/L; Blood Urea Nitrogen 25 mg/dL (7-17); Calcium 8.8 mg/dL (8.4-10.2); Carbon Dioxide 30 mmol/L (22-30); Chloride 99 mmol/L (98-107); Globulin 2.6 g/dL; Glucose 79 mg/dL (74-99); Non-African American GFR(CKD) >90 (>60 ml/min/1.73 sqM); Potassium 4.1 mmol/L (3.5-5.1); Sodium 134 mmol/L (137-145); Total Bilirubin 0.4 mg/dL (0.2-1.3); Total Protein 5.4 g/dL (6.3-8.2)
[2021-10-08] MEDS: CHOLECALCIFEROL 25 MCG (1000 IU) TABLET PO SCH (09:07)
[2021-10-08] MEDS: BARICITINIB 2 MG TABLET PO SCH (09:07)
[2021-10-08] MEDS: ASCORBIC ACID 500 MG TAB PO SCH ×2 (09:07→20:21)
[2021-10-08] MEDS: DEXAMETHASONE SOD PHOSPHATE 10 MG/ML 1 ML VIAL IVP SCH (09:07)
[2021-10-08] MEDS: PSYLLIUM HUSK 100% 6 GM PACKET PO SCH (09:08)
[2021-10-08] MEDS: ENOXAPARIN 40 MG/0.4 ML SYRINGE SQ SCH (09:08)
[2021-10-08] MEDS: ZINC SULFATE 220 MG CAP PO SCH (10:53)
--- NOTE | 2021-10-08 14:03 | P.PN ---
Subjective Progress Note Date: 10/08/21 This is a 56-year-old female patient of Dr. Coffey with no significant medical history, who presented to the emergency department on 09/21/2021 for evaluation of worsening dyspnea, patient wears a apple Smart watch and when she checked her oxygen it was noted to be very low measuring 60-70%. She has been having a cough and a fever for about 1 week. She called her primary care doctor and was told to come into the emergency department. Patient denied any chest pain, patient was tested positive for COVID 19 On today's evaluation of 10/03/2021 the patient remains on high flow oxygen with Airvo with 15 L with an FiO2 of 60%. Pulse ox currently is at 89%. This is a case of coronary related pneumonia. The patient's has been doing limited progress over this past week. Chest x-ray showed diffuse bilateral pulmonary infiltrates consistent with overnight. Pneumonia. The patient also had evide nce of subcutaneous emphysema which has remained unchanged. Epigastric resume mainly seen on the left and in the neck area bilaterally. In terms of therapy, the patient has been maintained on a combination of Decadron 6 g IV every 12 hours and the patient is also on Baricitinib 4 mg by mouth on a daily basis. The patient is receiving Lovenox 40 mg subcu on a daily basis. In terms of inflammatory markers, the patient's LDH level was not been checked for the past 3 days. The last check showed a level of 1541 with a CRP of 5.7. He d-dimer was at 5.09. White cell count is at 20.8 with a hemoglobin of 14.8. Electrolytes are all within normal limits. Some mild transaminitis was noted. For the most part, her condition has remained stable for now. On 10/04/2021, the patient is being seen for a follow-up. The patient remains on Airvo at 55 L with an FiO2 of 60%. The patient has not shown any significant improvement since yesterday. Oxygenation remains borderline. Pulse ox is order of 91-90% on above-mentioned Airvo settings. In terms of his inflammatory markers, she has a d-dimer of 3.69 with an LDH level of 1305 with a CRP level of 1.8. The patient continues to be on Baricitinib and the patient is also on Decadron 6 mg IV every 12 hours. She is on Lovenox 40 mg subcu every 24 hours. The patient is otherwise stable. No altered mentation. No chest pain. No shortness of breath above and beyond her baseline. No nausea vomiting or diarrhea. No side effects and offer treatment. Patient is otherwise the same. No other significant events over the past 24 hours since her last evaluation. Her last chest x-ray was from 10/02/2021 and it showed bilateral pulmonary infiltrates consistent with community related pneumonia. Infiltrates are rather diffuse and it was some airspace changes bilaterally. on 10/05/2021, the patient is doing well. The patient is on Airvo and it has been weaned down to 50 L flow with an FiO2 of 50%. She is doing well and she doesn't have any significant chest distress at rest. She still essentially is with mobility. D-dimer is at 3.69. LDH level is 1003 on the 5 and a CRP level is at 1.8. No fever. No nausea or vomiting. No altered mentation. She is hemodynamically stable. The patient is being treated with a combination of Decadron and Baricitinib. Decadron is at 6 mg IV every 12 hours and she is also on Baricitinib at a dose of 4 mg by mouth daily. Number the culprit no significant sputum production. No chest tightness. No wheezing. She is able to tolerate the Airvo without any major difficulties. 10/06/2021 the patient remains on Airvo and she is currently on a 40 L with an FiO2 of 40%. Doing well. No specific complaints. Her oxygen flows being gradually weaned off. In terms of her blood work, the patient had a d-dimer of 3.69. LDH level was elevated above 1000 and her CRP was also elevated. N evertheless, these numbers are old. Clinically the patient is doing better. She remains on Decadron. She remains on Baricitinib. I'm going to cut down the Decadron to 6 mg every 24 hours. No nausea. No vomiting. No oropharyngeal candidiasis to no chest pain. No other significant events overnight. Her cough has also subsided. On today's evaluation, the white cell count is at 20.1. The patient also has a sodium level of 133, renal function is stable. Creatinine is stable. LDH is to be monitored and repeated in a.m. 10/07/2021, the patient remains on the same Airvo setting which is 40 L with an FiO2 of 40%. Doing essentially the same and her pulse ox is ranging between 90- 94%. No much room for further weaning. We can try to drop the flow slightly lower at a later stage. Otherwise, she is afebrile. Blood work shows no significant abnormalities. White cell count is low at 18.7. Hemoglobin is at 14.7. D-dimer is at 1.99. Sodium level is at 133. BNP is a 28 with a crea tinine of 0.5. LDH level is lower at 962 and the CRP is less than 0.5. No other significant events overnight. She is sitting up on a recliner. She is still continuing continuing to take a combination of Decadron which is currently at 6 mg IV every day and Baricitinib 4 mg by mouth daily. She remains on anticoagulation with Lovenox 40 mgSC daily U daily. 10/08/2021, the patient is being seen for a follow-up. I was able to wean her down to 35 L Airvo with an FiO2 of -40%. Doing well. No specific complaints. Completing a course of Decadron and Baricitinib. She is also on Lovenox 40 mg subcu daily. She continues to sit up on a recliner. No complaints.the white cell +80 with a hemoglobin of 13.7, and the rest of the blood work and electrolytes are all within normal limits. Her d-dimer was at 1.99 and the LDH level was down to 962. Objective - Vital Signs Vital signs: Vital Signs Temp 98.1 F 10/08/21 09:00 Pulse 102 H 10/08/21 09:00 Resp 17 10/08/21 09:00 BP 115/75 10/08/21 09:00 Pulse Ox 92 L 10/08/21 09:00 Intake & Output 10/07/21 10/08/21 10/08/21 18:59 06:59 18:59 Other: Voiding Method Bedside Commode # Voids 3 - Exam No acute distress, oriented 3, Currently on AIRVO, at 40 L with an FiO2 of 40% HEENT examination is grossly unremarkable. Neck supple. Full range of motion. No adenopathy thyromegaly or neck vein distention. Cardiovascular examination reveals regular rhythm rate. S1-S2 normal. No S3 or S4. No discernible murmur noted. Heart sounds are distant. bpm. Lungs reveal bilateral rhonchi. No wheezes or crackles. Breath sounds equal. Saturations on AIRVO are 94%. Abdomen soft bowel sounds are heard. No masses or tenderness. Extremities are intact. No cyanosis clubbing or edema. Skin is without rash or lesion. Neurologic examination is brief but nonfocal. - Labs CBC & Chem 7: 10/08/21 06:10 10/08/21 06:10 Labs: Abnormal Lab Results - Last 24 Hours (Table) 10/08/21 10/08/21 Range/Units 06:10 06:10 WBC 18.0 H (3.8-10.6) k/uL Neutrophils # 13.3 H (1.3-7.7) k/uL Monocytes # 1.3 H (0-1.0) k/uL Sodium 134 L (137-145) mmol/L BUN 25 H (7-17) mg/dL Total Protein 5.4 L (6.3-8.2) g/dL Albumin 2.8 L (3.5-5.0) g/dL Assessment and Plan Plan: 1 Acute hypoxemic respiratory failure secondary to coronavirus associated pneumonia. The patient remains on a combination of Decadron and Baricitinib. No worsening in her oxygenation. The patient remains on high flow oxygen at 35 L with an FiO2 of 40 %. The patient is also on Lovenox for DVT prophylaxis.No evidence of pulmonary embolism on CT angiogram, X 2.. The patient is gradually improving. There has been a gradual wean the Airvo settings including the flow. 2 Diffuse subcutaneous emphysema and pneumomediastinum, without pneumothorax. The subcutaneous emphysema stable for now 3 Status post incomplete coronavirus vaccination. 4 Elevated inflammatory marker secondary to coronavirus infection. The inflammatory markers need to be followed up Plan stable, we'll try to cut down the flow down to 30 L Inflammatory markers are all improving Keep the FiO2 of 40% Recheck in the mother markers for tomorrow including d-dimer LVH and CRP. Continue the Decadron and reduced the dose of Decadron to 6 mg every 24 hours Continue Baricitinib Continue Lovenox Condition is stable we'll continue to follow. We'll gradually wean down the flow Condition is stable for now.
--- NOTE | 2021-10-08 16:31 | P.PN ---
Progress Note - Text Progress Note Date: 10/08/21 Chief Complaint: Short of breath This is a 56-year-old patient who follows with Dr. Coffey. Normally in good health. Was on taking any medications. Patient received off for short of posterior on it this year. Few minutes up to that she had developed a rash on the chest. Blood pressure was a bit high. Some tingling in the lips. There was no lip swelling no tongue swelling no choking no shortness of breath. Given this reaction she did not take the second dose of COVID shock. Patient for about a week has been getting progressively more short of breath. Having diarrhea for last 3 days. Everything tastes salty. Having. Slight headache. Has a dry cough. Her pulse ox at room has been off and on 84%. Poor appetite. Has been getting dizzy. She talk to her family doctor on videophone. He asked her to come in to the hospital. Patient tested positive for COVID 5 days ago. Tired and rundown. She been having some fevers. Admitted with COVID 19 pneumonitis, acute hypoxic respiratory failure. Started on dexamethasone, oxygen. IV fluids. Initially FiO2 increased to 6 L. Patient went out to use the BiPAP. This swished over to Airvo. Oral intake fluctuating. Also pneumomediastinum. Been followed conservatively . Patient was then put on Airvo. Also developed some pneumomediastinum. Manage conservatively. Started on Baricitinib. 10/08/2021: Up in a recliner. Oral intake variable. On Airvo. Some shortness of breath. Had a bowel movement. Review of systems: Was done for constitutional, cardiovascular, GI, pulmonary. relevant finding as above Active Medications Acetaminophen (Acetaminophen Tab 325 Mg Tab) 650 mg PO Q6HR PRN PRN Reason: Mild Pain or Fever > 100.5 Last Admin: 09/21/21 21:59 Dose: 650 mg Documented by: Al Hydroxide/Mg Hydroxide (Mag Hydrox/Al Hydrox/Simeth 30 Ml Cup) 15 ml PO Q6HR PRN PRN Reason: Indigestion Alprazolam (Alprazolam 0.25 Mg Tab) 0.25 mg PO Q6HR PRN PRN Reason: Anxiety Ascorbic Acid (Ascorbic Acid 500 Mg Tab) 500 mg PO BID CAIO Last Admin: 10/08/21 09:07 Dose: 500 mg Documented by: Baricitinib (Baricitinib 2 Mg Tablet) 4 mg PO DAILY [facility] Stop: 10/09/21 09:59 Last Admin: 10/08/21 09:07 Dose: 4 mg Documented by: Calcium Carbonate/Glycine (Calcium Carbonate 500 Mg Chewable) 1,000 mg PO Q4HR PRN PRN Reason: Dyspepsia Cholecalciferol (Cholecalciferol 25 Mcg (1000 Iu) Tablet) 100 mcg PO DAILY [facility] Last Admin: 10/08/21 09:07 Dose: 100 mcg Documented by: Dexamethasone Sodium Phosphate (Dexamethasone Sod Phosphate 10 Mg/Ml 1 Ml Vial) 6 mg IVP DAILY [facility] Last Admin: 10/08/21 09:07 Dose: 6 mg Documented by: Enoxaparin Sodium (Enoxaparin 40 Mg/0.4 Ml Syringe) 40 mg SQ DAILY [facility] Last Admin: 10/08/21 09:08 Dose: 40 mg Documented by: Lactulose (Lactulose 20 Gm/30 Ml Cup) 20 gm PO DAILY PRN PRN Reason: Constipation Magnesium Hydroxide (Magnesium Hydroxide 2,400 Mg/10 Ml Cup) 2,400 mg PO DAILY PRN PRN Reason: Constipation Melatonin (Melatonin 3 Mg Tablet) 3 mg PO HS PRN PRN Reason: Insomnia Last Admin: 09/23/21 20:41 Dose: 3 mg Documented by: Naloxone HCl (Naloxone 0.4 Mg/Ml 1 Ml Vial) 0.2 mg IV Q2M PRN PRN Reason: Opioid Reversal Ondansetron HCl (Ondansetron 4 Mg/2 Ml Vial) 4 mg IVP Q8HR PRN PRN Reason: Nausea And Vomiting Psyllium Hydrophilic Mucilloid (Psyllium Husk 100% 6 Gm Packet) 6 gm PO DAILY [facility] Last Admin: 10/08/21 09:08 Dose: 6 gm Documented by: Zinc Sulfate (Zinc Sulfate 220 Mg Cap) 220 mg PO DAILY [facility] Last Admin: 10/08/21 10:53 Dose: 220 mg Documented by: Past medical history: Unremarkable Social history: Does not smoke or drink alcohol. . 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 Family history: Reviewed, noncontributory to presentation Physical examination: VITAL SIGNS: 98.1, 97, 18, 119/90, 94% on 35/40 interval GENERAL: recliner, , short of breath LUNGS: Respiratory rate increased, . PSYCH: Alert and oriented x3; mood and affect tired NEUROLOGICAL: Cranial nerves grossly intact; no facial asymmetry, moving all her limbs Rest of the exam per pulmonary, nursing INVESTIGATIONS, reviewed in the clinical context: October 08: W Alondra 18 hemoglobin 13.7 potassium 4.1 creatinine 0.53 albumin 2.8 October 07: White count 18.7 hemoglobin 14.7 d-dimer 1.99 potassium 3.8 creatinine 0.58 CRP less than 0.5 October 06: Count 20.1 hemoglobin 14.3 d-dimer 1.79 potassium 4.7 creatinine 0.56 sodium 133 October 04: D-dimer 3.69 CRP 1.8 October 03: WBC 20.8 hemoglobin 14.8 potassium 3.9 creatinine 0.58 September 30: WBC 16 hemoglobin 13.3 d-dimer 5.09 potassium 4.3 BUN [address] chest [September 28]: Infiltrates, pneumomediastinum September 25: D-dimer 1.57 CRP 1.9 Chest x-ray film personally reviewed by me-[September 24]: Scattered infiltrates September 23: White count 11.3 hemoglobin 13.1 and platelets 210 d-dimer 0.5 to CRP 5.0 WBC 6.4 hemoglobin 14.2 platelets 142 d-dimer 0.81 potassium 4.2 BUN 16 creatinine 0.70 CRP 16.8 Chest x-ray film personally reviewed by me-bilateral infiltrates Assessment and plan: -Acute bilateral COVID 19 pneumonitis. Received her first dose of vaccine in November. Had ALLERGIC reaction and did not get the second short period patient's symptoms have been present for about a week: Slowly improving Dexamethasone. IV Remdesivir completed. PO Baricitinib -Acute hypoxic respiratory failure from COVID 19 pneumonitis.: Slow to respond On Airvo 35/40 -Pneumomediastinum Being followed by pulmonary -Sepsis from COVID 19 pneumonitis: Better Received IV fluids -Thrombocytopenia from COVID 19: Corrected Follow CBC -Acute medical debility from COVID 19. -Possible mild COVID-19 hepatitis -Hypoalbuminemia, acute phase reactant -Mild hyponatremia Encourage oral intake Dexamethasone 6 mg a day, IV Remdesivir-completed. Airvo Incentive spirometry. Baricitinib . Discussed with patient.
--- NOTE | 2021-10-08 22:06 | PN ---
PROGRESS NOTE DATE OF SERVICE: 10/08/2021 REASON FOR FOLLOWUP: COVID-19 pneumonia. INTERVAL HISTORY: The patient is afebrile. The patient is breathing comfortably, still requiring 40% FiO2 on AIRVO. The patient denies any chest pain or worsening cough. No abdominal pain or diarrhea. PHYSICAL EXAMINATION: Blood pressure 122/81 with a pulse of 109, temperature 97.6. She is 93% on 40% FiO2. General description is an elderly female lying in bed in no distress. Respiratory system: Unlabored breathing, decreased intensity of breath sounds. No wheeze. Heart S1, S2. Regular rate and rhythm. Abdomen soft, no tenderness. LABS: Hemoglobin is 13.7, white count 18, creatinine 0.53. DIAGNOSTIC IMPRESSION AND PLAN: Patient with acute COVID-19 pneumonia; slow clinical improvement on Baricitinib; to complete a 2-week course tomorrow along with dexamethasone, Lovenox, zinc and ascorbic acid. Continue with supportive care. MMODL / IJN: [id number] /
[2021-10-09] MEDS: ENOXAPARIN 40 MG/0.4 ML SYRINGE SQ SCH (07:33)
[2021-10-09] MEDS: ASCORBIC ACID 500 MG TAB PO SCH (07:33)
[2021-10-09] MEDS: BARICITINIB 2 MG TABLET PO SCH (07:33)
[2021-10-09] MEDS: ZINC SULFATE 220 MG CAP PO SCH (07:33)
[2021-10-09] MEDS: CHOLECALCIFEROL 25 MCG (1000 IU) TABLET PO SCH (07:34)
[2021-10-09] MEDS: DEXAMETHASONE SOD PHOSPHATE 10 MG/ML 1 ML VIAL IVP SCH (07:34)
[2021-10-09] MEDS: PSYLLIUM HUSK 100% 6 GM PACKET PO SCH (07:34)
[2021-10-09 09:49] LABS: Basophils % (A) 0 %; Eosinophils # (A) 0.4 k/uL (0-0.7); Eosinophils % (A) 2 %; HCT 42.6 % (34.0-46.0); Lymphocytes # (A) 2.5 k/uL (1.0-4.8); Lymphocytes % (A) 15 %; MCH 29.4 pg (25.0-35.0); MCHC 32.7 g/dL (31.0-37.0); MCV 89.8 fL (80.0-100.0); Mean Platelet Volume 8.5; Monocytes # (A) 0.7 k/uL (0-1.0); Monocytes % (A) 4 %; Neutrophils # (A) 12.7 k/uL (1.3-7.7); Neutrophils % (A) 77 %; Platelet Count 292 k/uL (150-450); RBC 4.75 m/uL (3.80-5.40); RDW 13.7 % (11.5-15.5); WBC 16.5 k/uL (3.8-10.6)
[2021-10-09 10:12] LABS: AST 25 U/L (14-36); African American GFR (CKD) >90 (>60 ml/min/1.73 sqM); Albumin 2.9 g/dL (3.5-5.0); Albumin/Globulin Ratio 1.1; Alkaline Phosphatase 55 U/L (38-126); Anion Gap 8 mmol/L; Blood Urea Nitrogen 21 mg/dL (7-17); Calcium 8.7 mg/dL (8.4-10.2); Carbon Dioxide 27 mmol/L (22-30); Chloride 97 mmol/L (98-107); Globulin 2.6 g/dL; Glucose 183 mg/dL (74-99); Non-African American GFR(CKD) >90 (>60 ml/min/1.73 sqM); Potassium 3.5 mmol/L (3.5-5.1); Sodium 132 mmol/L (137-145); Total Bilirubin 0.5 mg/dL (0.2-1.3); Total Protein 5.5 g/dL (6.3-8.2)
[2021-10-09 10:17] LABS: ALT 29 U/L (4-34)
--- NOTE | 2021-10-09 12:23 | P.PN ---
Subjective Progress Note Date: 10/09/21 This is a 56-year-old female patient of Dr. Coffey with no significant medical history, who presented to the emergency department on 09/21/2021 for evaluation of worsening dyspnea, patient wears a apple Smart watch and when she checked her oxygen it was noted to be very low measuring 60-70%. She has been having a cough and a fever for about 1 week. She called her primary care doctor and was told to come into the emergency department. Patient denied any chest pain, patient was tested positive for COVID 19 On today's evaluation of 10/03/2021 the patient remains on high flow oxygen with Airvo with 15 L with an FiO2 of 60%. Pulse ox currently is at 89%. This is a case of coronary related pneumonia. The patient's has been doing limited progress over this past week. Chest x-ray showed diffuse bilateral pulmonary infiltrates consistent with overnight. Pneumonia. The patient also had evide nce of subcutaneous emphysema which has remained unchanged. Epigastric resume mainly seen on the left and in the neck area bilaterally. In terms of therapy, the patient has been maintained on a combination of Decadron 6 g IV every 12 hours and the patient is also on Baricitinib 4 mg by mouth on a daily basis. The patient is receiving Lovenox 40 mg subcu on a daily basis. In terms of inflammatory markers, the patient's LDH level was not been checked for the past 3 days. The last check showed a level of 1541 with a CRP of 5.7. He d-dimer was at 5.09. White cell count is at 20.8 with a hemoglobin of 14.8. Electrolytes are all within normal limits. Some mild transaminitis was noted. For the most part, her condition has remained stable for now. On 10/04/2021, the patient is being seen for a follow-up. The patient remains on Airvo at 55 L with an FiO2 of 60%. The patient has not shown any significant improvement since yesterday. Oxygenation remains borderline. Pulse ox is order of 91-90% on above-mentioned Airvo settings. In terms of his inflammatory markers, she has a d-dimer of 3.69 with an LDH level of 1305 with a CRP level of 1.8. The patient continues to be on Baricitinib and the patient is also on Decadron 6 mg IV every 12 hours. She is on Lovenox 40 mg subcu every 24 hours. The patient is otherwise stable. No altered mentation. No chest pain. No shortness of breath above and beyond her baseline. No nausea vomiting or diarrhea. No side effects and offer treatment. Patient is otherwise the same. No other significant events over the past 24 hours since her last evaluation. Her last chest x-ray was from 10/02/2021 and it showed bilateral pulmonary infiltrates consistent with community related pneumonia. Infiltrates are rather diffuse and it was some airspace changes bilaterally. on 10/05/2021, the patient is doing well. The patient is on Airvo and it has been weaned down to 50 L flow with an FiO2 of 50%. She is doing well and she doesn't have any significant chest distress at rest. She still essentially is with mobility. D-dimer is at 3.69. LDH level is 1003 on the 5 and a CRP level is at 1.8. No fever. No nausea or vomiting. No altered mentation. She is hemodynamically stable. The patient is being treated with a combination of Decadron and Baricitinib. Decadron is at 6 mg IV every 12 hours and she is also on Baricitinib at a dose of 4 mg by mouth daily. Number the culprit no significant sputum production. No chest tightness. No wheezing. She is able to tolerate the Airvo without any major difficulties. 10/06/2021 the patient remains on Airvo and she is currently on a 40 L with an FiO2 of 40%. Doing well. No specific complaints. Her oxygen flows being gradually weaned off. In terms of her blood work, the patient had a d-dimer of 3.69. LDH level was elevated above 1000 and her CRP was also elevated. N evertheless, these numbers are old. Clinically the patient is doing better. She remains on Decadron. She remains on Baricitinib. I'm going to cut down the Decadron to 6 mg every 24 hours. No nausea. No vomiting. No oropharyngeal candidiasis to no chest pain. No other significant events overnight. Her cough has also subsided. On today's evaluation, the white cell count is at 20.1. The patient also has a sodium level of 133, renal function is stable. Creatinine is stable. LDH is to be monitored and repeated in a.m. 10/07/2021, the patient remains on the same Airvo setting which is 40 L with an FiO2 of 40%. Doing essentially the same and her pulse ox is ranging between 90- 94%. No much room for further weaning. We can try to drop the flow slightly lower at a later stage. Otherwise, she is afebrile. Blood work shows no significant abnormalities. White cell count is low at 18.7. Hemoglobin is at 14.7. D-dimer is at 1.99. Sodium level is at 133. BNP is a 28 with a crea tinine of 0.5. LDH level is lower at 962 and the CRP is less than 0.5. No other significant events overnight. She is sitting up on a recliner. She is still continuing continuing to take a combination of Decadron which is currently at 6 mg IV every day and Baricitinib 4 mg by mouth daily. She remains on anticoagulation with Lovenox 40 mgSC daily U daily. 10/08/2021, the patient is being seen for a follow-up. I was able to wean her down to 35 L Airvo with an FiO2 of -40%. Doing well. No specific complaints. Completing a course of Decadron and Baricitinib. She is also on Lovenox 40 mg subcu daily. She continues to sit up on a recliner. No complaints.the white cell +80 with a hemoglobin of 13.7, and the rest of the blood work and electrolytes are all within normal limits. Her d-dimer was at 1.99 and the LDH level was down to 962. 14 2020 the patient was taken off the Airvo and the patient is currently on 15 L of oxygen by nasal cannula. She is doing well. No specific complaints. White cell count is down to 16. Blood work essentially within normal limits. She is able to tolerate her diet. No fever or chills. No chest pain. No other complaints otherwise. The patient is showing steady and ongoing improvement in her oxygenation. She is still on a combination of Decadron and Baricitinib. She is also on anticoagulation with Lovenox and she completed her course of Baricitinib and she completed a total of 14 day course. Objective - Vital Signs Vital signs: Vital Signs Temp 97.6 F 10/09/21 10:07 Pulse 90 10/09/21 10:07 Resp 18 10/09/21 10:07 BP 123/80 10/09/21 10:07 Pulse Ox 96 10/09/21 10:07 Intake & Output 10/08/21 10/09/21 10/09/21 18:59 06:59 18:59 Other: Voiding Method Bedside Commode # Voids 3 3 # Bowel Movements 1 - Exam No acute distress, oriented 3, Currently on 15 L of oxygen by nasal cannula HEENT examination is grossly unremarkable. Neck supple. Full range of motion. No adenopathy thyromegaly or neck vein distention. Cardiovascular examination reveals regular rhythm rate. S1-S2 normal. No S3 or S4. No discernible murmur noted. Heart sounds are distant. bpm. Lungs reveal bilateral rhonchi. No wheezes or crackles. Breath sounds equal. Saturations on 15 L of oxygen by nasal cannula Abdomen soft bowel sounds are heard. No masses or tenderness. Extremities are intact. No cyanosis clubbing or edema. Skin is without rash or lesion. Neurologic examination is brief but nonfocal. - Labs CBC & Chem 7: 10/09/21 08:47 10/09/21 08:47 Labs: Abnormal Lab Results - Last 24 Hours (Table) 10/09/21 10/09/21 Range/Units 08:47 08:47 WBC 16.5 H (3.8-10.6) k/uL Neutrophils # 12.7 H (1.3-7.7) k/uL Sodium 132 L (137-145) mmol/L Chloride 97 L (98-107) mmol/L BUN 21 H (7-17) mg/dL Glucose 183 H (74-99) mg/dL Total Protein 5.5 L (6.3-8.2) g/dL Albumin 2.9 L (3.5-5.0) g/dL Assessment and Plan Plan: 1 Acute hypoxemic respiratory failure secondary to coronavirus associated pneumonia. The patient remains on a combination of Decadron and Baricitinib. The patient completed the course of Baricitinib. She remains on Decadron and Lovenox. The patient is currently down to 15 L of oxygen by nasal cannula and the Airvo system has been discontinued 2 Diffuse subcutaneous emphysema and pneumomediastinum, without pneumothorax. The subcutaneous emphysema stable for now 3 Status post incomplete coronavirus vaccination. 4 Elevated inflammatory marker secondary to coronavirus infection. The inflammatory markers need to be followed up Plan stable, we'll try to cut down the flow down to 15 L of oxygen nasal cannula Inflammatory markers are all improving Keep the FiO2 of 40% Recheck in the mother markers for tomorrow including d-dimer LVH and CRP. Continue the Decadron and reduced the dose of Decadron to 6 mg every 24 hours Completed the course of Baricitinib Continue Lovenox Condition is stable we'll continue to follow. We'll gradually wean down the flow Condition is stable for now.
--- NOTE | 2021-10-09 15:28 | P.PN ---
Progress Note - Text Progress Note Date: 10/09/21 Chief Complaint: Short of breath This is a 56-year-old patient who follows with Dr. Coffey. Normally in good health. Was on taking any medications. Patient received off for short of posterior on it this year. Few minutes up to that she had developed a rash on the chest. Blood pressure was a bit high. Some tingling in the lips. There was no lip swelling no tongue swelling no choking no shortness of breath. Given this reaction she did not take the second dose of COVID shock. Patient for about a week has been getting progressively more short of breath. Having diarrhea for last 3 days. Everything tastes salty. Having. Slight headache. Has a dry cough. Her pulse ox at room has been off and on 84%. Poor appetite. Has been getting dizzy. She talk to her family doctor on videophone. He asked her to come in to the hospital. Patient tested positive for COVID 5 days ago. Tired and rundown. She been having some fevers. Admitted with COVID 19 pneumonitis, acute hypoxic respiratory failure. Started on dexamethasone, oxygen. IV fluids. Initially FiO2 increased to 6 L. Patient went out to use the BiPAP. This swished over to Airvo. Oral intake fluctuating. Also pneumomediastinum. Been followed conservatively . Patient was then put on Airvo. Also developed some pneumomediastinum. Manage conservatively. Started on Baricitinib. 10/08/2021: Up in a recliner. Oral intake variable. On Airvo. Some shortness of breath. Had a bowel movement. 10/09/2021: . Getting a bit better. Now on 15 L of nasal cannula. Eating about 50%. Review of systems: Was done for constitutional, cardiovascular, GI, pulmonary. relevant finding as above Active Medications Acetaminophen (Acetaminophen Tab 325 Mg Tab) 650 mg PO Q6HR PRN PRN Reason: Mild Pain or Fever > 100.5 Last Admin: 09/21/21 21:59 Dose: 650 mg Documented by: Al Hydroxide/Mg Hydroxide (Mag Hydrox/Al Hydrox/Simeth 30 Ml Cup) 15 ml PO Q6HR PRN PRN Reason: Indigestion Alprazolam (Alprazolam 0.25 Mg Tab) 0.25 mg PO Q6HR PRN PRN Reason: Anxiety Ascorbic Acid (Ascorbic Acid 500 Mg Tab) 500 mg PO BID [facility] Last Admin: 10/09/21 07:33 Dose: 500 mg Documented by: Calcium Carbonate/Glycine (Calcium Carbonate 500 Mg Chewable) 1,000 mg PO Q4HR PRN PRN Reason: Dyspepsia Cholecalciferol (Cholecalciferol 25 Mcg (1000 Iu) Tablet) 100 mcg PO DAILY [facility] Last Admin: 10/09/21 07:34 Dose: 100 mcg Documented by: Dexamethasone Sodium Phosphate (Dexamethasone Sod Phosphate 10 Mg/Ml 1 Ml Vial) 6 mg IVP DAILY [facility] Last Admin: 10/09/21 07:34 Dose: 6 mg Documented by: Enoxaparin Sodium (Enoxaparin 40 Mg/0.4 Ml Syringe) 40 mg SQ DAILY [facility] Last Admin: 10/09/21 07:33 Dose: 40 mg Documented by: Lactulose (Lactulose 20 Gm/30 Ml Cup) 20 gm PO DAILY PRN PRN Reason: Constipation Magnesium Hydroxide (Magnesium Hydroxide 2,400 Mg/10 Ml Cup) 2,400 mg PO DAILY PRN PRN Reason: Constipation Melatonin (Melatonin 3 Mg Tablet) 3 mg PO HS PRN PRN Reason: Insomnia Last Admin: 09/23/21 20:41 Dose: 3 mg Documented by: Naloxone HCl (Naloxone 0.4 Mg/Ml 1 Ml Vial) 0.2 mg IV Q2M PRN PRN Reason: Opioid Reversal Ondansetron HCl (Ondansetron 4 Mg/2 Ml Vial) 4 mg IVP Q8HR PRN PRN Reason: Nausea And Vomiting Psyllium Hydrophilic Mucilloid (Psyllium Husk 100% 6 Gm Packet) 6 gm PO DAILY [facility] Last Admin: 10/09/21 07:34 Dose: 6 gm Documented by: Zinc Sulfate (Zinc Sulfate 220 Mg Cap) 220 mg PO DAILY [facility] Last Admin: 10/09/21 07:33 Dose: 220 mg Documented by: Past medical history: Unremarkable Social history: Does not smoke or drink alcohol. . 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 Family history: Reviewed, noncontributory to presentation Physical examination: VITAL SIGNS: 98.4, 93, 17, 170/76, 77% on 15 L GENERAL: recliner, , breathing better LUNGS: Respiratory rate increased, . PSYCH: Alert and oriented x3; mood and affect tired NEUROLOGICAL: Cranial nerves grossly intact; no facial asymmetry, moving all her limbs Rest of the exam per pulmonary, nursing INVESTIGATIONS, reviewed in the clinical context: October 09: WBC 16.5 white count 3.5 hemoglobin creatinine 0.5 to October 08: W Alondra 18 hemoglobin 13.7 potassium 4.1 creatinine 0.53 albumin 2.8 October 07: White count 18.7 hemoglobin 14.7 d-dimer 1.99 potassium 3.8 creatinine 0.58 CRP less than 0.5 October 06: Count 20.1 hemoglobin 14.3 d-dimer 1.79 potassium 4.7 creatinine 0.56 sodium 133 October 04: D-dimer 3.69 CRP 1.8 October 03: WBC 20.8 hemoglobin 14.8 potassium 3.9 creatinine 0.58 September 30: WBC 16 hemoglobin 13.3 d-dimer 5.09 potassium 4.3 BUN [address] chest [September 28]: Infiltrates, pneumomediastinum September 25: D-dimer 1.57 CRP 1.9 Chest x-ray film personally reviewed by me-[September 24]: Scattered infiltrates September 23: White count 11.3 hemoglobin 13.1 and platelets 210 d-dimer 0.5 to CRP 5.0 WBC 6.4 hemoglobin 14.2 platelets 142 d-dimer 0.81 potassium 4.2 BUN 16 creatinine 0.70 CRP 16.8 Chest x-ray film personally reviewed by me-bilateral infiltrates Assessment and plan: -Acute bilateral COVID 19 pneumonitis. Received her first dose of vaccine in November. Had ALLERGIC reaction and did not get the second short period patient's symptoms have been present for about a week: Slowly improving Dexamethasone. IV Remdesivir completed. PO Baricitinib -Acute hypoxic respiratory failure from COVID 19 pneumonitis.: Slow to respond On 15 L nasal cannula -Pneumomediastinum Being followed by pulmonary -Sepsis from COVID 19 pneumonitis: Better Received IV fluids -Thrombocytopenia from COVID 19: Corrected Follow CBC -Acute medical debility from COVID 19. -Possible mild COVID-19 hepatitis -Hypoalbuminemia, acute phase reactant -Mild hyponatremia Encourage oral intake Dexamethasone 6 mg a day, IV Remdesivir-completed. Nasal cannula 15 L Incentive spirometry. Baricitinib . Discussed with patient.
[2021-10-09] MEDS ORDERED: ASCORBIC ACID 500 MG TAB ONE (22:00)
--- NOTE | 2021-10-09 23:11 | PN ---
PROGRESS NOTE DATE OF SERVICE: 10/09/2021. REASON FOR FOLLOWUP: COVID-19 pneumonia. INTERVAL HISTORY: The patient is afebrile. The patient is currently breathing comfortably. The patient is off the AIRVO and is no high-flow nasal cannula oxygen. The patient denies having any chest pain or worsening cough. No abdominal pain or diarrhea. PHYSICAL EXAMINATION: Blood pressure 134/75 with a pulse of 98, temperature 98.2. She is 95% on 3 L high- flow oxygen. General description is a middle-aged female up in the bed in no distress. Respiratory system: Unlabored breathing, decreased intensity of breath sounds. No wheeze. Heart S1, S2. Regular rate and rhythm. Abdomen soft, no tenderness. LABS: Hemoglobin is 14, white count 16.5, creatinine 0.52. DIAGNOSTIC IMPRESSION AND PLAN: Patient with acute COVID-19 infection in this patient who seems to have shown some clinical improvement. The patient is currently on baricitinib she completed her course with Lovenox, dexamethasone, zinc and ascorbic acid. Continue with supportive care. MMODL / IJN: [id number] /
[2021-10-10] MEDS: ASCORBIC ACID 500 MG TAB PO SCH ×3 (01:01→20:23)
[2021-10-10] MEDS: ENOXAPARIN 40 MG/0.4 ML SYRINGE SQ SCH (08:49)
[2021-10-10] MEDS: DEXAMETHASONE SOD PHOSPHATE 10 MG/ML 1 ML VIAL IVP SCH (08:49)
[2021-10-10] MEDS: ZINC SULFATE 220 MG CAP PO SCH (08:49)
[2021-10-10] MEDS: PSYLLIUM HUSK 100% 6 GM PACKET PO SCH (08:49)
[2021-10-10] MEDS: CHOLECALCIFEROL 25 MCG (1000 IU) TABLET PO SCH (08:49)
--- NOTE | 2021-10-10 16:53 | P.PN ---
Progress Note - Text Progress Note Date: 10/10/21 Chief Complaint: Short of breath This is a 56-year-old patient who follows with Dr. Coffey. Normally in good health. Was on taking any medications. Patient received off for short of posterior on it this year. Few minutes up to that she had developed a rash on the chest. Blood pressure was a bit high. Some tingling in the lips. There was no lip swelling no tongue swelling no choking no shortness of breath. Given this reaction she did not take the second dose of COVID shock. Patient for about a week has been getting progressively more short of breath. Having diarrhea for last 3 days. Everything tastes salty. Having. Slight headache. Has a dry cough. Her pulse ox at room has been off and on 84%. Poor appetite. Has been getting dizzy. She talk to her family doctor on videophone. He asked her to come in to the hospital. Patient tested positive for COVID 5 days ago. Tired and rundown. She been having some fevers. Admitted with COVID 19 pneumonitis, acute hypoxic respiratory failure. Started on dexamethasone, oxygen. IV fluids. Initially FiO2 increased to 6 L. Patient went out to use the BiPAP. This swished over to Airvo. Oral intake fluctuating. Also pneumomediastinum. Been followed conservatively . Patient was then put on Airvo. Also developed some pneumomediastinum. Manage conservatively. Started on Baricitinib. 10/08/2021: Up in a recliner. Oral intake variable. On Airvo. Some shortness of breath. Had a bowel movement. 10/09/2021: . Getting a bit better. Now on 15 L of nasal cannula. Eating about 50%. 10/10/2021: Breathing getting better. 5 L of nasal cannula. Oral intake better. Started to walk in the room. Review of systems: Was done for constitutional, cardiovascular, GI, pulmonary. relevant finding as above Active Medications Acetaminophen (Acetaminophen Tab 325 Mg Tab) 650 mg PO Q6HR PRN PRN Reason: Mild Pain or Fever > 100.5 Last Admin: 09/21/21 21:59 Dose: 650 mg Documented by: Al Hydroxide/Mg Hydroxide (Mag Hydrox/Al Hydrox/Simeth 30 Ml Cup) 15 ml PO Q6HR PRN PRN Reason: Indigestion Alprazolam (Alprazolam 0.25 Mg Tab) 0.25 mg PO Q6HR PRN PRN Reason: Anxiety Ascorbic Acid (Ascorbic Acid 500 Mg Tab) 500 mg PO BID [facility] Last Admin: 10/10/21 08:49 Dose: 500 mg Documented by: Calcium Carbonate/Glycine (Calcium Carbonate 500 Mg Chewable) 1,000 mg PO Q4HR PRN PRN Reason: Dyspepsia Cholecalciferol (Cholecalciferol 25 Mcg (1000 Iu) Tablet) 100 mcg PO DAILY [facility] Last Admin: 10/10/21 08:49 Dose: 100 mcg Documented by: Dexamethasone Sodium Phosphate (Dexamethasone Sod Phosphate 10 Mg/Ml 1 Ml Vial) 6 mg IVP DAILY [facility] Last Admin: 10/10/21 08:49 Dose: 6 mg Documented by: Enoxaparin Sodium (Enoxaparin 40 Mg/0.4 Ml Syringe) 40 mg SQ DAILY [facility] Last Admin: 10/10/21 08:49 Dose: 40 mg Documented by: Lactulose (Lactulose 20 Gm/30 Ml Cup) 20 gm PO DAILY PRN PRN Reason: Constipation Magnesium Hydroxide (Magnesium Hydroxide 2,400 Mg/10 Ml Cup) 2,400 mg PO DAILY PRN PRN Reason: Constipation Melatonin (Melatonin 3 Mg Tablet) 3 mg PO HS PRN PRN Reason: Insomnia Last Admin: 09/23/21 20:41 Dose: 3 mg Documented by: Naloxone HCl (Naloxone 0.4 Mg/Ml 1 Ml Vial) 0.2 mg IV Q2M PRN PRN Reason: Opioid Reversal Ondansetron HCl (Ondansetron 4 Mg/2 Ml Vial) 4 mg IVP Q8HR PRN PRN Reason: Nausea And Vomiting Psyllium Hydrophilic Mucilloid (Psyllium Husk 100% 6 Gm Packet) 6 gm PO DAILY [facility] Last Admin: 10/10/21 08:49 Dose: 6 gm Documented by: Zinc Sulfate (Zinc Sulfate 220 Mg Cap) 220 mg PO DAILY [facility] Last Admin: 10/10/21 08:49 Dose: 220 mg Documented by: Past medical history: Unremarkable Social history: Does not smoke or drink alcohol. . 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 Family history: Reviewed, noncontributory to presentation Physical examination: VITAL SIGNS: 98.2, 92, 17, 116/76, 97% on 5 L GENERAL: recliner, , breathing better LUNGS: Respiratory rate increased, . PSYCH: Alert and oriented x3; mood and affect tired NEUROLOGICAL: Cranial nerves grossly intact; no facial asymmetry, moving all her limbs Rest of the exam per pulmonary, nursing INVESTIGATIONS, reviewed in the clinical context: October 10: D-dimer 1.28 CRP less than 0.5 October 09: WBC 16.5 white count 3.5 hemoglobin creatinine 0.5 to October 08: W Alondra 18 hemoglobin 13.7 potassium 4.1 creatinine 0.53 albumin 2.8 October 07: White count 18.7 hemoglobin 14.7 d-dimer 1.99 potassium 3.8 creatinine 0.58 CRP less than 0.5 October 06: Count 20.1 hemoglobin 14.3 d-dimer 1.79 potassium 4.7 creatinine 0.56 sodium 133 October 04: D-dimer 3.69 CRP 1.8 October 03: WBC 20.8 hemoglobin 14.8 potassium 3.9 creatinine 0.58 September 30: WBC 16 hemoglobin 13.3 d-dimer 5.09 potassium 4.3 BUN [address] chest [September 28]: Infiltrates, pneumomediastinum September 25: D-dimer 1.57 CRP 1.9 Chest x-ray film personally reviewed by me-[September 24]: Scattered infiltrates September 23: White count 11.3 hemoglobin 13.1 and platelets 210 d-dimer 0.5 to CRP 5.0 WBC 6.4 hemoglobin 14.2 platelets 142 d-dimer 0.81 potassium 4.2 BUN 16 creatinine 0.70 CRP 16.8 Chest x-ray film personally reviewed by me-bilateral infiltrates Assessment and plan: -Acute bilateral COVID 19 pneumonitis. Received her first dose of vaccine in November. Had ALLERGIC reaction and did not get the second short period patient's symptoms have been present for about a week: Slowly improving Dexamethasone. IV Remdesivir completed. PO Baricitinib -Acute hypoxic respiratory failure from COVID 19 pneumonitis.: Improving On 5 L nasal cannula -Pneumomediastinum Being followed by pulmonary -Sepsis from COVID 19 pneumonitis: Better Received IV fluids -Thrombocytopenia from COVID 19: Corrected Follow CBC -Acute medical debility from COVID 19. -Possible mild COVID-19 hepatitis -Hypoalbuminemia, acute phase reactant -Mild hyponatremia Encourage oral intake Dexamethasone 6 mg a day, IV Remdesivir-completed. Nasal cannula 5 L Incentive spirometry. Baricitinib . Discussed with patient. Increase activity.
--- NOTE | 2021-10-10 17:05 | P.PN ---
Subjective Progress Note Date: 10/10/21 Principal diagnosis: Hypoxemic COVID-19 pneumonia 11 [id number] patient seen in follow-up on medical surgical floor, she is currently up in the chair, breathing comfortably, in no acute distress, on 4 L of oxygen pulse ox is 95%. No fever or chills, bowel signs have been stable, she is currently on Decadron 6 mg daily, she is on Lovenox 40 mg daily. Her last chest x-ray was back on 10/02/2021, prolactin follow-up chest x-ray. Her labs today show d-dimer 1.28, CRP was less than 0.5, and LDH is still pending for today. She remains on COVID-19 vitamins. She is tolerating oral intake, no nausea vomiting or diarrhea. Doing well. Objective - Vital Signs Vital signs: Vital Signs Temp 98.2 F 10/10/21 14:42 Pulse 96 10/10/21 14:42 Resp 18 10/10/21 14:42 BP 124/78 10/10/21 14:42 Pulse Ox 95 10/10/21 14:42 Intake & Output 10/09/21 10/10/21 10/10/21 18:59 06:59 18:59 Intake Total 480 Output Total 700 Balance -220 Intake: Oral 480 Output: Urine 700 Other: Voiding Method Bedside Commode Bedside Commode # Voids 3 3 3 - Exam GENERAL EXAM: Alert, very pleasant, 56-year-old white female, a 4 L of oxygen with pulse ox of 95%, sitting up in the chair. comfortable in no apparent distress. HEAD: Normocephalic/atraumatic. EYES: Normal reaction of pupils, equal size. Conjunctiva pink, sclera white. NOSE: Clear with pink turbinates. THROAT: No erythema or exudates. NECK: No masses, no JVD, no thyroid enlargement, no adenopathy. CHEST: No chest wall deformity. Symmetrical expansion. LUNGS: Equal air entry with bibasilar crackles. CVS: Regular rate and rhythm, normal S1 and S2, no gallops, no murmurs, no rubs ABDOMEN: Soft, nontender. No hepatosplenomegaly, normal bowel sounds, no guardi ng or rigidity. EXTREMITIES: No clubbing, no edema, no cyanosis, 2+ pulses and upper and lower extremities. MUSCULOSKELETAL: Muscle strength and tone normal. SPINE: No scoliosis or deformity SKIN: No rashes CENTRAL NERVOUS SYSTEM: Alert and oriented -3. No focal deficits, tone is normal in all 4 extremities. PSYCHIATRIC: Alert and oriented -3. Appropriate affect. Intact judgment and insight. - Labs CBC & Chem 7: 10/09/21 08:47 10/09/21 08:47 Labs: Abnormal Lab Results - Last 24 Hours (Table) 10/10/21 Range/Units 08:18 D-Dimer 1.28 H (<0.60) mg/L FEU Assessment and Plan Plan: Assessment: #1. Acute hypoxic respiratory failure related to acute COVID-19 pneumonia, with onset of symptoms within 1 week of presentation to the emergency department. She has completed a course of Remdesivir, and Baricitinib. Currently remains on Decadron, FiO2 is currently down to 4 L. #2. Incomplete COVID-19 vaccination, patient received 1 dose of COVID-19 vaccine in November 2020, developed a reaction with skin rash, hypertension, and tingling lips, and did not complete her second injection #3. Elevated inflammatory markers related to acute viral pneumonia #4. Elevated d-dimer without evidence of pulmonary embolism on CT angiogram #5. Diffuse subcutaneous emphysema and pneumomediastinum without pneumothorax Plan: Continue Decadron Continue prophylactic Lovenox Continue multivitamins The patient is improving, she is currently down to 4 L, continue weaning FiO2 Follow-up chest x-ray in the morning If remains stable may consider for discharge home in the morning. I performed a history & physical examination of the patient and discussed their management with my nurse practitioner, Babs Mckee. I reviewed the nurse practitioner's note and agree with the documented findings and plan of care. Lung sounds are positive for diminished breath sounds throughout the lung montilla. The findings and the impression was discussed with the patient. I att est to the documentation by the nurse practitioner. Time with Patient: Less than 30
--- NOTE | 2021-10-10 17:41 | PN ---
PROGRESS NOTE DATE OF SERVICE: 10/10/2021 REASON FOR FOLLOWUP: COVID-19 pneumonia. INTERVAL HISTORY: The patient is afebrile. She is breathing comfortably. Patient is going down to 2 L nasal cannula. The patient denies having any chest pain. No worsening shortness of breath or cough. No abdominal pain or diarrhea. PHYSICAL EXAMINATION: Blood pressure 116/76, pulse of 92, temperature 98.2. General description is a middle- aged female up in the chair in no distress. Respiratory system: Unlabored breathing, decreased intensity of breath sounds. No wheeze. Heart S1, S2. Regular rate and rhythm. Abdomen soft, no tenderness. Extremities no edema of the feet. LABS: D-dimer is 1.28. CRP less than 0.5. DIAGNOSTIC IMPRESSION AND PLAN: Patient with acute COVID-19 pneumonia patient has completed a 2-week course of baricitinib, currently covered with Lovenox, dexamethasone, zinc and ascorbic acid; to continue along with respiratory support and monitor clinical course closely. Continue with supportive care. MMRUDYL / GUNJANN: [id number] /
[2021-10-11] MEDS: ASCORBIC ACID 500 MG TAB PO SCH (07:34)
[2021-10-11] MEDS: CHOLECALCIFEROL 25 MCG (1000 IU) TABLET PO SCH (07:34)
[2021-10-11] MEDS: DEXAMETHASONE SOD PHOSPHATE 10 MG/ML 1 ML VIAL IVP SCH (07:34)
[2021-10-11] MEDS: ZINC SULFATE 220 MG CAP PO SCH (07:34)
[2021-10-11] MEDS: ENOXAPARIN 40 MG/0.4 ML SYRINGE SQ SCH (07:34)
[2021-10-11] MEDS: PSYLLIUM HUSK 100% 6 GM PACKET PO SCH (07:35)
[2021-10-11 10:35] VITALS: BP 127/67; PULSE 63; RESP 18; TEMP 97.6
--- NOTE | 2021-10-11 11:08 | XR ---
EXAMINATION TYPE: XR chest 1V portable DATE OF EXAM: 10/11/2021 COMPARISON: Chest x-ray 10/02/2021 HISTORY: Covid infection, pneumonia TECHNIQUE: Single frontal view of the chest is obtained. FINDINGS: Lung volumes are low. Bilateral airspace disease is again seen. No evident pneumothorax or pleural effusion. There is improvement in the subcutaneous emphysema, pneumomediastinum. Cardiac med iastinal silhouette is stable. Bones are unchanged. IMPRESSION: Findings consistent with patient's history of Covid pneumonia
--- NOTE | 2021-10-11 11:19 | P.PN ---
Subjective Progress Note Date: 10/11/21 Principal diagnosis: Hypoxemic COVID-19 pneumonia 10/10/2021 patient seen in follow-up on medical surgical floor, she is currently up in the chair, breathing comfortably, in no acute distress, on 4 L of oxygen pulse ox is 95%. No fever or chills, bowel signs have been stable, she is currently on Decadron 6 mg daily, she is on Lovenox 40 mg daily. Her last chest x-ray was back on 10/02/2021, prolactin follow-up chest x-ray. Her labs today show d-dimer 1.28, CRP was less than 0.5, and LDH is still pending for today. She remains on COVID-19 vitamins. She is tolerating oral intake, no nausea vomiting or diarrhea. Doing well. On 10/11/2021 patient seen in follow-up on medical surgical floor. She remains on 4 L of oxygen, breathing very comfortably, she's been ambulating in the room, going to the bathroom, tolerates activity very well, looks very comfortable, she is awake and alert, oriented 3, she's had no acute events overnight, no complaints of chest discomfort. Still has a mild cough, no phlegm production. No fever or chills, tolerating oral intake, no nausea vomiting or diarrhea. Signs have is stable, and patient is very anxious to get home today. No new labs today. Follow-up chest x-ray today shows improvement in the subcutaneous emphysema and pneumomediastinum. Objective - Vital Signs Vital signs: Vital Signs Temp 97.6 F 10/11/21 10:00 Pulse 63 10/11/21 10:00 Resp 18 10/11/21 10:00 BP 127/67 10/11/21 10:00 Pulse Ox 91 L 10/11/21 10:00 Intake & Output 10/10/21 10/11/21 10/11/21 18:59 06:59 18:59 Intake Total 220 Balance 220 Intake: Oral 220 Other: Voiding Method Bedside Commode Toilet # Voids 3 1 # Bowel Movements 1 - Exam GENERAL EXAM: Alert, very pleasant, 56-year-old white female, a 4 L of oxygen with pulse ox of 95%, sitting up in the chair. comfortable in no apparent distress. HEAD: Normocephalic/atraumatic. EYES: Normal reaction of pupils, equal size. Conjunctiva pink, sclera white. NOSE: Clear with pink turbinates. THROAT: No erythema or exudates. NECK: No masses, no JVD, no thyroid enlargement, no adenopathy. CHEST: No chest wall deformity. Symmetrical expansion. LUNGS: Equal air entry with bibasilar crackles. CVS: Regular rate and rhythm, normal S1 and S2, no gallops, no murmurs, no rubs ABDOMEN: Soft, nontender. No hepatosplenomegaly, normal bowel sounds, no guarding or rigidity. EXTREMITIES: No clubbing, no edema, no cyanosis, 2+ pulses and upper and lower extremities. MUSCULOSKELETAL: Muscle strength and tone normal. SPINE: No scoliosis or deformity SKIN: No rashes CENTRAL NERVOUS SYSTEM: Alert and oriented -3. No focal deficits, tone is normal in all 4 extremities. PSYCHIATRIC: Alert and oriented -3. Appropriate affect. Intact judgment and insight. - Labs CBC & Chem 7: 10/09/21 08:47 10/09/21 08:47 Assessment and Plan Plan: Assessment: #1. Acute hypoxic respiratory failure related to acute COVID-19 pneumonia, with onset of symptoms within 1 week of presentation to the emergency department. She has completed a course of Remdesivir, and Baricitinib. Currently remains on Decadron, FiO2 is currently down to 4 L. #2. Incomplete COVID-19 vaccination, patient received 1 dose of COVID-19 vaccine in November 2020, developed a reaction with skin rash, hypertension, and tingling lips, and did not complete her second injection #3. Elevated inflammatory markers related to acute viral pneumonia #4. Elevated d-dimer without evidence of pulmonary embolism on CT angiogram #5. Diffuse subcutaneous emphysema and pneumomediastinum without pneumothorax Plan: Today's chest x-ray has been reviewed showing improving subcutaneous emphysema and pneumomediastinum Clinical patient has remained stable, she still 4 L of oxygen Obtain home oxygen assessment most likely patient will qualify for home oxygen Stable for discharge home from pulmonary perspective Patient continues 5 more days of oral Decadron, she can continue on COVID-19 vitamins Outpatient follow-up Dr. Nix in the office in 2 weeks I performed a history & physical examination of the patient and discussed their management with my nurse practitioner, Babs Mckee. I reviewed the nurse practitioner's note and agree with the documented findings and plan of care. Lung sounds are positive for diminished breath sounds throughout the lung montilla. The findings and the impression was discussed with the patient. I attest to the documentation by the nurse practitioner. Time with Patient: Less than 30
--- NOTE | 2021-10-11 18:16 | P.DS ---
Providers Date of admission: 09/21/21 19:18 Expected date of discharge: 10/11/21 Attending physician: Kris Xiao Consults: 09/21/21 18:13 Consult Physician Routine Consulting Provider: Geovanna Khanna Consult Reason/Comments: covid Do you want consulting provider notified?: Yes Consult Physician Routine Consulting Provider: Dejah Purcell Consult Reason/Comments: covid Do you want consulting provider notified?: Yes Primary care physician: [facility] Course: Chief Complaint: Short of breath This is a 56-year-old patient who follows with Dr. Coffey. Normally in good health. Was on taking any medications. Patient received off for short of posterior on it this year. Few minutes up to that she had developed a rash on the chest. Blood pressure was a bit high. Some tingling in the lips. There was no lip swelling no tongue swelling no choking no shortness of breath. Given this reaction she did not take the second dose of COVID shock. Patient for about a week has been getting progressively more short of breath. Having diarrhea for last 3 days. Everything tastes salty. Having. Slight headache. Has a dry cough. Her pulse ox at room has been off and on 84%. Poor appetite. Has been getting dizzy. She talk to her family doctor on videophone. He asked her to come in to the hospital. Patient tested positive for COVID 5 days ago. Tired and rundown. She been having some fevers. Admitted with COVID 19 pneumonitis, acute hypoxic respiratory failure. Started on dexamethasone, oxygen. IV fluids. Initially FiO2 increased to 6 L. Patient went out to use the BiPAP. This swished over to Airvo. Oral intake fluctuating. Also pneumomediastinum. Been followed conservatively . Patient was then put on Airvo. Also developed some pneumomediastinum. Manage conservatively. Started on Baricitinib. Patient started to improve slowly. Oxygen requirement of the brought down. Use incentive spirometry. Appetite improved. Today: Doing better. Ambulate in the room. Will be discharged on 4 L of nasal cannula. Prednisone taper. Xarelto 10 mg for DVT prophylaxis. Care was discussed the patient. Including incentive spirometry. Cleared by pulmonary. Discussion and discharge planning more than 35 minutes Consultation: Dr. Khanna in partners from pulmonary Dr. Purcell from [place] Past medical history: Unremarkable Social history: Does not smoke or drink alcohol. . 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 Family history: Reviewed, noncontributory to presentation Physical examination: VITAL SIGNS: 97.6, 63, 18, 127 with 67,93% on 4 L GENERAL: recliner, , breathing better LUNGS: Respiratory rate increased, . PSYCH: Alert and oriented x3; mood and affect tired NEUROLOGICAL: Cranial nerves grossly intact; no facial asymmetry, moving all her limbs Rest of the exam per pulmonary, nursing INVESTIGATIONS, reviewed in the clinical context: October 10: D-dimer 1.28 CRP less than 0.5 September 30: WBC 16 hemoglobin 13.3 d-dimer 5.09 potassium 4.3 BUN [address] chest [September 28]: Infiltrates, pneumomediastinum September 25: D-dimer 1.57 CRP 1.9 Chest x-ray film personally reviewed by me-[September 24]: Scattered infiltrates September 23: White count 11.3 hemoglobin 13.1 and platelets 210 d-dimer 0.5 to CRP 5.0 WBC 6.4 hemoglobin 14.2 platelets 142 d-dimer 0.81 potassium 4.2 BUN 16 creatinine 0.70 CRP 16.8 Chest x-ray film personally reviewed by me-bilateral infiltrates Assessment and plan: -Acute bilateral COVID 19 pneumonitis. Received her first dose of vaccine in November. Had ALLERGIC reaction and did not get the second short period patient's symptoms have been present for about a week: Better. Dexamethasone. IV Remdesivir completed. PO Baricitinib Discharged on prednisone taper. Xarelto 10 mg daily for 30 days. -Acute hypoxic respiratory failure from COVID 19 pneumonitis.: Improving On 4 L nasal cannula -Pneumomediastinum Being followed by pulmonary -Sepsis from COVID 19 pneumonitis: Better Received IV fluids -Thrombocytopenia from COVID 19: Corrected Follow CBC -Acute medical debility from COVID 19. -Possible mild COVID-19 hepatitis -Hypoalbuminemia, acute phase reactant -Mild hyponatremia Encourage oral intake Disposition: Home Plan - Discharge Summary Discharge Rx Participant: No New Discharge Prescriptions: New Dexamethasone [Decadron] 6 mg PO DAILY 5 Days #5 tablet Albuterol Inhaler [Ventolin Hfa Inhaler] 2 puff INHALATION RT-QID PRN 30 Days #8 gm PRN Reason: Dyspnea Ascorbic Acid [Vitamin C] 500 mg PO BID #60 tab Cholecalciferol [Vitamin D3 (25 Mcg = 1000 Iu)] 100 mcg PO DAILY #120 tablet Rivaroxaban [Xarelto] 10 mg PO DAILY #30 tab Zinc Sulfate [Orazinc] 220 mg PO DAILY #30 cap Discharge Medication List Albuterol Inhaler [Ventolin Hfa Inhaler] 2 puff INHALATION RT-QID PRN 30 Days #8 gm 10/11/21 [Rx] Ascorbic Acid [Vitamin C] 500 mg PO BID #60 tab 10/11/21 [Rx] Cholecalciferol [Vitamin D3 (25 Mcg = 1000 Iu)] 100 mcg PO DAILY #120 tablet 10/11/21 [Rx] Dexamethasone [Decadron] 6 mg PO DAILY 5 Days #5 tablet 10/11/21 [Rx] Rivaroxaban [Xarelto] 10 mg PO DAILY #30 tab 10/11/21 [Rx] Zinc Sulfate [Orazinc] 220 mg PO DAILY #30 cap 10/11/21 [Rx] Follow up Appointment(s)/Referral(s): Geovanna Khanna MD [STAFF PHYSICIAN] - 11/14/21 1:00 pm [facility],Equipment [NON-STAFF] - As Needed (oxygen ) Elpidio Coffey MD [Primary Care Provider] - 1-2 days Patient Instructions/Handouts: Coronavirus Disease 2019 (COVID-19) Discharge Disposition: HOME SELF-CARE
== END 2021-10-11 13:22 | disposition home or self-care (01) | DRG 871 ==
LOC: EC 15:20 → 4SSUR 19:18
PROVIDERS: ADMIT Hospitalist; ATTEND Hospitalist
PROC: XW033E5 Introduction of Remdesivir Anti-infective into Peripheral Vein, Percutaneous Approach, New Technology Group 5 (ICD-10-PCS; principal; 2021-09-22)
PROC: 5A0945A Assistance with Respiratory Ventilation, 24-96 Consecutive Hours, High Flow/Velocity Cannula (ICD-10-PCS; 2021-09-23)
PROC: XW0DXM6 Introduction of Baricitinib into Mouth and Pharynx, External Approach, New Technology Group 6 (ICD-10-PCS; 2021-09-26)
PROC: 5A09457 Assistance with Respiratory Ventilation, 24-96 Consecutive Hours, Continuous Positive Airway Pressure (ICD-10-PCS; 2021-09-26)
DX: A41.89 Other specified sepsis (principal); J12.82 Pneumonia due to coronavirus disease 2019; J96.01 Acute respiratory failure with hypoxia; U07.1 COVID-19; E87.1 Hypo-osmolality and hyponatremia; B17.8 Other specified acute viral hepatitis; D69.59 Other secondary thrombocytopenia; E88.09 Other disorders of plasma-protein metabolism, not elsewhere classified; T38.0X5A Adverse effect of glucocorticoids and synthetic analogues, initial encounter; D72.829 Elevated white blood cell count, unspecified; J98.2 Interstitial emphysema; Z80.1 Family history of malignant neoplasm of trachea, bronchus and lung; Z82.49 Family history of ischemic heart disease and other diseases of the circulatory system; Z88.6 Allergy status to analgesic agent; Z88.0 Allergy status to penicillin; Z88.8 Allergy status to other drugs, medicaments and biological substances; Z88.7 Allergy status to serum and vaccine
CPT/HCPCS: 36415; 71045; 71275; 80053; 82728; 83605; 83615; 83735; 84145; 85025; 85379; 85610; 85730; 86140; 87040; 87635; 93005; 94660; 94760; 96374; 99291

== ENCOUNTER → 2022-01-20 | Outpatient (CLI) | payer OTHER ==
--- NOTE | 2022-01-20 13:00 | ECHOF ---
Referral Reason:R06.09 Dyspnea MEASUREMENTS -------- HEIGHT: 157.5 cm WEIGHT: 83.0 kg BP: RVIDd: 1.7 cm (< 3.3) IVSd: 1.5 cm (0.6 - 1.1) LVIDd: 3.1 cm (3.9 - 5.3) LVPWd: 1.4 cm (0.6 - 1.1) IVSs: 1.9 cm LVIDs: 2.2 cm LVPWs: 1.5 cm LAESV Index (A-L): 18.85 ml/m Ao Diam: 2.5 cm (2.0 - 3.7) AV Cusp: 1.7 cm (1.5 - 2.6) LA Diam: 2.2 cm (2.7 - 3.8) MV EXCURSION: 12.148 mm (> 18.000) MV EF SLOPE: 87 mm/s (70 - 150) EPSS: 0.5 cm MV E Regis: 0.77 m/s MV DecT: 211 ms MV A Regis: 0.95 m/s MV E/A Ratio: 0.81 RAP: 5.00 mmHg RVSP: 32.56 mmHg FINDINGS -------- Sinus rhythm. This was a technically good study. The left ventricular size is normal. There is moderate concentric left ventricular hypertrophy. O verall left ventricular systolic function is normal with, an EF between 55 - 60 %. The right ventricle is normal in size. Normal LA size by volume 22+/-6 ml/m2. The right atrial size is normal. The aortic valve is trileaflet, and appears structurally normal. No aortic stenosis or regurgitation. The mitral valve is normal. There is trace mitral regurgitation. The tricuspid valve appears structurally normal. Trace tricuspid regurgitation present. Right vashti tricular systolic pressure is normal at < 35 mmHg. There is no pulmonic regurgitation present. The aortic root size is normal. Normal inferior vena cava with normal inspiratory collapse consistent with estimated right atrial pre ssure of 5 mmHg. There is no pericardial effusion. CONCLUSIONS -------- 1. There is moderate concentric left ventricular hypertrophy. 2. Overall left ventricular systolic function is normal with, an EF between 55 - 60 %. 3. The aortic valve is trileaflet, and appears structurally normal. No aortic stenosis or regurgitati on. 4. There is trace mitral regurgitation. 5. Trace tricuspid regurgitation present. 6. There is no pericardial effusion. [employer]: Deepa Coppola RDCS
== END | disposition home or self-care (01) ==
LOC: RADECHMAIN 08:24
PROVIDERS: ATTEND Internal Medicine
DX: I34.0 Nonrheumatic mitral (valve) insufficiency (principal); I07.1 Rheumatic tricuspid insufficiency; R06.09 Other forms of dyspnea
CPT/HCPCS: 93306

== ENCOUNTER → 2022-05-19 | Outpatient (CLI) | payer OTHER ==
--- NOTE | 2022-05-20 07:41 | CT ---
EXAMINATION TYPE: CT chest wo con DATE OF EXAM: 05/19/2022 COMPARISON: 04/11/2022 HISTORY: f/u nodules CT DLP: 441.[address] of the chest was performed with lung and mediastinal window settings submitted. The la ck of contrast limits evaluation of the vascular, mediastinal and parenchymal structures including th e upper abdomen. LUNGS: Much improved appearance of the chest relative to the prior study. There are persistent areas of interstitial prominence within the periphery of both lung montilla likely sequela of prior infection . I do not see evidence for discrete nodule or mass. No evidence of pleural effusion. No airspace con solidation. MEDIASTINUM/ALESIA: Thoracic aorta is of normal caliber with limited evaluation given lack of contrast . The heart is not enlarged. No evidence for mediastinal mass. No lymph nodes greater than 1cm. UPPER ABDOMEN: No significant abnormality is seen. OTHER: No significant other abnormality. IMPRESSION: 1. There appears to be sequela of prior Covid 19 pneumonia. No active pneumonia seen. 2. No distinct pulmonary nodules or masses.
== END | disposition home or self-care (01) ==
LOC: RADCTMAIN 16:21
PROVIDERS: ATTEND Internal Medicine
DX: R91.8 Other nonspecific abnormal finding of lung field (principal)
CPT/HCPCS: 71250

== ENCOUNTER → 2022-10-16 | Outpatient (CLI) | payer OTHER ==
--- NOTE | 2022-10-16 13:16 | CT ---
EXAMINATION TYPE: CT chest wo con CT DLP: 488.8 mGycm, Automated exposure control for dose reduction was used. DATE OF EXAM: 10/16/2022 12:47 PM COMPARISON: 05/19/2022 and dating back to 09/21/2021. CLINICAL INDICATION:Female, 57 years old with history of R91.8 OTHER NONSPECIFIC ABNORMAL FINDING OF LUNG F; , follow up recent covid TECHNIQUE: Multiple axial images were obtained through the chest. Sagittal and coronal reformats were created for review. Contrast used: none Oral contrast used: none. FINDINGS: LUNGS/ PLEURA: Scattered areas of interstitial reticulation predominantly peripherally. Overall findi ngs are similar distribution to prior correlate infection on 09/21/2021 no focal consolidation, pneum othorax or pleural effusion. No new or enlarging pulmonary nodules. AIRWAY: Patent and unremarkable. HEART: The heart is mildly enlarged for size. MEDIASTINUM: No gross evidence of adenopathy. VASCULATURE: No aortic aneurysm. MUSCULOSKELETAL: No acute osseous abnormalities, multilevel disc degeneration changes throughout the spine. SOFT TISSUES/LYMPH NODES: Unremarkable. LOWER NECK: No significant findings. UPPER ABDOMEN: No significant findings. 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 Overall findings are not significantly different than prior on 05/19/2022.
== END | disposition home or self-care (01) ==
LOC: RADCTMAIN 12:29
PROVIDERS: ATTEND Internal Medicine
DX: R91.8 Other nonspecific abnormal finding of lung field (principal)
CPT/HCPCS: 71250

== ENCOUNTER → 2023-10-04 | Outpatient (CLI) | payer OTHER ==
--- NOTE | 2023-10-05 08:23 | CT ---
EXAMINATION TYPE: CT chest wo con DATE OF EXAM: 10/04/2023 COMPARISON: 10/16/2022 HISTORY: f/u from COVID pneumonia. CT DLP: 492.5 mGycm. Automated Exposure Control for Dose Reduction was Utilized. TECHNIQUE: CT scan of the thorax is performed without IV contrast. FINDINGS: LUNGS: Scattered areas of interstitial reticulation with a greater peripheral distribution. Overall f indings are similar relative to prior exam. No new focal consolidation, pneumothorax or pleural effus ion. No new or enlarging pulmonary nodules. MEDIASTINUM: Lack of IV contrast is noted to limit evaluation for mediastinal and especially hilar ad enopathy. There are no definitive greater than 1 cm hilar or mediastinal lymph nodes. No cardiomega ly or pericardial effusion is seen. No evidence of aorta aneurysm. Mild atherosclerotic OTHER: Small hiatal hernia. Hypertrophic and degenerative change of the spine. IMPRESSION: 1. Foraminal peripheral areas of groundglass and linear density likely in the sequela of prior infect ious etiology unchanged from prior exam. Chronic pneumonitis or interstitial disease in the different ial diagnosis.
== END | disposition home or self-care (01) ==
LOC: RADCTMAIN 18:09
PROVIDERS: ATTEND Internal Medicine
DX: J12.82 Pneumonia due to coronavirus disease 2019 (principal); U07.1 COVID-19; J98.4 Other disorders of lung; R91.8 Other nonspecific abnormal finding of lung field
CPT/HCPCS: 71250

== ENCOUNTER → 2024-03-24 | Day surgery (SDC) | payer BC, OTHER ==
--- NOTE | 2024-03-24 13:56 | USB ---
Risk Values: Odalis 5 year model risk: 1.6%. NCI Lifetime model risk: 9.5%. Findings: Technique utilized:US discontinued breast bx LT Image; Ultrasound imaging of: Area of concern. Interval decrease in size of lesion just beneath the skin surface when comparing to the original ultrasound scan. This is located at 10:00 17 cm from the nipple measuring approximately 6 x 3 mm on today's exam. Given interval decrease in size the biopsy was canceled at that time. Short-term follow-up in 3 months recommended. Management: Diagnostic Breast Ultrasound of the left breast in 6 months. A clinical breast exam by your physician is recommended on an annual basis and results should be correlated with mammographic findings. This exam should not preclude additional follow-up of suspicious palpable abnormalities. Results were given to the patient verbally at the time of exam. Electronically signed and approved by: Keith Miller DO
== END ==
LOC: RADUSWWP 12:38
PROVIDERS: ATTEND Surgery
DX: Z53.8 Procedure and treatment not carried out for other reasons (principal); N63.20 Unspecified lump in the left breast, unspecified quadrant